=== PATIENT | male | born 1950 | race Caucasian/White ===

== ENCOUNTER 2021-06-13 14:29 | Outpatient (CLI) | payer MEDICARE, SELFPAY ==
[2021-06-13 14:44] LABS: Hematocrit 47.9 % (37.0-46.0); Hemoglobin 16.5 g/dL (12.4-15.3); Mean Corpuscular HGB Conc 34.4 g/dL (32.0-36.0); Mean Corpuscular Volume 92.8 fL (78.0-102.0); Mean Platelet Volume 9.1 fl (8.7-11.0); Platelet Count Result 224 K/mm3 (150-420); Red Blood Count 5.16 M/mm3 (4.70-6.10); Red Cell Distribution Width 11.9 % (11.6-14.4); White Blood Count 9.6 K/mm3 (4.8-10.8)
[2021-06-13 15:41] LABS: Alanine Aminotransferase 52 U/L (16-63); Albumin Level 4.1 g/dL (3.4-5.0); Alkaline Phosphatase 89 U/L (46-116); Anion Gap 14 mmol/L (8-16); Aspartate Amino Transferase 33 U/L (15-37); Bilirubin,Total 1.2 mg/dL (0.00-1.00); Blood Urea Nitrogen 25 mg/dL (7-18); Calcium 8.9 mg/dL (8.5-10.1); Carbon Dioxide 22 mmol/L (21-32); Chloride 106 mmol/L (98-108); Cholesterol 117 mg/dL (0-200); Estimated Glomerular Filt Rate 27; Glucose 123 mg/dL (70-99); HDL Direct 28 mg/dL (40-60); LDL Cholesterol Calculated 36 mg/dL (<130); Osmolality Calculated 299 mOsm/kg (285-295); Potassium 4.5 mmol/L (3.5-5.1); Sodium 142 mmol/L (136-145); Total Protein 7.1 g/dL (6.4-8.2); Triglycerides 266 mg/dL (0-150)
== END 2021-06-13 14:30 | disposition home or self-care (01) ==
LOC: CHSLAB 14:33
PROVIDERS: PCP Family Medicine; Visit Provider Family Medicine
DX: I10 Essential (primary) hypertension (principal)
CPT/HCPCS: 36415; 80053; 80061; 85027

== ENCOUNTER 2021-08-16 13:35 | Outpatient (CLI) | payer MEDICARE, SELFPAY ==
--- NOTE | ~2021-08-16 | US_ITS ---
EXAMINATION: US retroperitoneal comp DATE: 08/16/2021 14:19 INDICATION: Chronic kidney disease stage IV. TECHNIQUE: Multiple ultrasound grayscale images of the kidneys were obtained. COMPARISON: CT abdomen and pelvis 12/29/2017 FINDINGS: The right kidney measures 9.7 x 5.4 x 6.3 cm. The left kidney measures 11.8 x 5.0 x 5.9 cm. The kidne ys demonstrate normal parenchymal echogenicity. There is a 6.9 cm cyst in left kidney. There is focal volume loss of left kidney from prior partial nephrectomy. There is no hydronephrosis. The bladder i s not well distended. IMPRESSION: 1. Partial left nephrectomy. Otherwise normal kidney sizes. No hydronephrosis. Reviewed, dictated and finalized at location A.
[2021-08-17 18:02] LABS: Anion Gap 13 mmol/L (8-16); Blood Urea Nitrogen 19 mg/dL (7-18); Calcium 8.9 mg/dL (8.5-10.1); Carbon Dioxide 22 mmol/L (21-32); Chloride 103 mmol/L (98-108); Estimated Glomerular Filt Rate 54; Glucose 107 mg/dL (70-99); Osmolality Calculated 288 mOsm/kg (285-295); Phosphorus 3.9 mg/dL (2.6-4.7); Potassium 4.1 mmol/L (3.5-5.1); Sodium 138 mmol/L (136-145)
[2021-08-20 05:42] LABS: Complement C3 184 mg/dL (82-185)
[2021-08-21 15:32] LABS: Albumin 4.3 g/dL (3.8-4.8); Alpha 1 Globulin 0.3 g/dL (0.2-0.3); Alpha 2 Globulin 0.9 g/dL (0.5-0.9); Beta 1 Globulin 0.4 g/dL (0.4-0.6); Gamma Globulin 0.6 g/dL (0.8-1.7); Interpretation Consistent with; Protein, Total 6.9 g/dL (6.1-8.1)
[2021-08-23 11:36] LABS: Anti Glomerular Basement Memb <1.0 AI (<1.0)
== END 2021-08-16 13:36 | disposition home or self-care (01) ==
LOC: CHSIMG 13:39
PROVIDERS: PCP Family Medicine; Visit Provider Internal Medicine Nephrology
DX: I12.9 Hypertensive chronic kidney disease with stage 1 through stage 4 chronic kidney disease, or unspecified chronic kidney disease (principal); N18.4 Chronic kidney disease, stage 4 (severe); R80.8 Other proteinuria
CPT/HCPCS: 36415; 76770; 80069; 82570; 83520; 84155; 84156; 84165; 84166; 84300; 86036; 86038; 86160; 86225

== ENCOUNTER 2021-08-18 09:19 | Outpatient (CLI) | payer MEDICARE, SELFPAY ==
[2021-08-18 10:41] LABS: Total Protein Urine Random 13.1 mg/dL (0.0-11.9)
[2021-08-18 10:44] LABS: Creatinine Urine 129.29 mg/dL (40-278); Sodium Urine Random 145 mmol/L (20-110)
[2021-08-22 05:45] LABS: Total Protein/Creatinine Ratio 67 mg/g creat (22-128)
[2021-08-28 12:04] LABS: Creatinine, Random Urine 119
== END 2021-08-18 09:20 | disposition home or self-care (01) ==
LOC: CHSLAB 09:21
PROVIDERS: PCP Family Medicine; Visit Provider Internal Medicine Nephrology
DX: I12.9 Hypertensive chronic kidney disease with stage 1 through stage 4 chronic kidney disease, or unspecified chronic kidney disease (principal); N18.4 Chronic kidney disease, stage 4 (severe); R80.8 Other proteinuria
CPT/HCPCS: 82570; 84156; 84166; 84300

== ENCOUNTER 2021-08-22 09:19 | Emergency (ER) | payer MEDICARE, SELFPAY ==
--- NOTE | ~2021-08-22 | XR_ITS ---
EXAMINATION: XR chest 1V portable DATE: 08/22/2021 10:12 INDICATION: Stroke with left-sided weakness TECHNIQUE: frontal view of the chest was obtained. COMPARISON: None FINDINGS: Calcified nodule in the left midlung zone consistent with old granulomatous disease. Mild linear disc oid atelectasis also in the left midlung zone. No pulmonary edema, pneumothorax or evident pleural ef fusion. Caudal-most tips of the costophrenic angles are however excluded from the [id number] and v cathi small pleural effusions cannot be absolutely excluded. Cardiomediastinal silhouette is within nor mal limits for AP technique. Median sternotomy wires as well as stenting of the tortuous descending t horacic aorta. Dual lead pacemaker seen with leads projecting over the expected locations of the righ t atrium and right ventricle. IMPRESSION: 1. No acute cardiopulmonary disease. Reviewed, dictated and finalized at location B.
--- NOTE | ~2021-08-22 | CT_ITS ---
EXAMINATION: CT brain wo con DATE: 08/22/2021 09:30 INDICATION: Left-sided weakness TECHNIQUE: Computed tomography (CT) of the head was performed without intravenous contrast. The dose- length product was 605.33 mGy-cm. Automated exposure control and iterative reconstruction technique w ere employed. COMPARISON: None FINDINGS: There is a parenchymal hemorrhage of the right hemisphere centered in the right basal gangl ia and temporal lobe measuring 3.4 x 3.5 cm with mild surrounding vasogenic edema. No midline shift. There is mild generalized atrophy. There are scattered mild periventricular and subcortical white mat ter changes, most likely related to small vessel ischemic disease (microangiopathy). There is intracr anial atherosclerosis. Paranasal sinuses and mastoids are pneumatized. No depressed skull fractures. IMPRESSION: 1. Acute parenchymal hemorrhage centered in the right temporal lobe/basal ganglia measuring up to 3.5 cm with mild surrounding vasogenic edema. No midline shift. 2: Chronic age-related findings. Dr. Ramon Osorio discussed with Dr. Loreta Way MD at 08/22/2021 09:35 CDT. Reviewed, dictated and finalized at location A. IMPRESSION: 1. Acute parenchymal hemorrhage centered in the right temporal lobe/basal gangl ia measuring up to 3.5 cm with mild surrounding vasogenic edema. No midline john ft. 2: Chronic age-related findings. Dr. Ramon Osorio discussed with Dr. Loreta Way MD at 08/22/2021 09:35 CDT.
--- NOTE | 2021-08-22 09:25 | ECG_ITS ---
Measurements Intervals [place] Rate: 69 P: -52 [place]: 217 QRS: -55 QRSD: 118 T: -16 QT: 378 QTc: 408 Interpretive Statements ELECTRONIC ATRIAL PACEMAKER INTRAVENTRICULAR CONDUCTION DELAY BORDERLINE R WAVE PROGRESSION, ANTERIOR LEADS INFERIOR INFARCT, AGE INDETERMINATE BASELINE ARTIFACT- I, II, III, AVR, AVL, AVF, V2-V3 ABNORMAL ECG Electronically Signed On 08-22-2021 9:35:50 CDT by David Bhatia D.O.
[2021-08-22 09:32] LABS: Basophils Absolute Auto 0.03 K/mm3 (0.00-0.10); Basophils Percent Auto 0.4 % (0.0-1.0); Eosinophils Absolute Auto 0.32 K/mm3 (0.02-0.50); Eosinophils Percent Auto 4.4 % (1.0-6.0); Hematocrit 44.2 % (37.0-46.0); Hemoglobin 15.1 g/dL (12.4-15.3); Immature Granulocyte Absolute 0.03 K/mm3 (0.00-0.00); Immature Granulocyte Percent A 0.4 % (0.0-0.0); Lymphocytes Absolute Auto 1.47 K/mm3 (1.10-4.50); Mean Corpuscular HGB Conc 34.2 g/dL (32.0-36.0); Mean Corpuscular Hemoglobin 31.7 pg (27.0-31.0); Mean Corpuscular Volume 92.9 fL (78.0-102.0); Mean Platelet Volume 9.4 fl (8.7-11.0); Monocytes Absolute Auto 0.62 K/mm3 (0.10-0.90); Monocytes Percent Auto 8.4 % (2.0-11.0); Neutrophils Absolute Auto 4.9 K/mm3 (1.7-7.2); Neutrophils Percent Auto 66.4 % (50.0-70.0); Platelet Count Result 165 K/mm3 (150-420); Red Blood Count 4.76 M/mm3 (4.70-6.10); Red Cell Distribution Width 11.9 % (11.6-14.4); White Blood Count 7.3 K/mm3 (4.8-10.8)
[2021-08-22 09:40] VITALS: BP 179/101; PULSE 70; RESP 16; TEMP 36.6; O2SAT 94
[2021-08-22 09:44] LABS: Partial Thromboplastin Time 27.8 SEC (23.90-30.70); Prothrombin Time 10.8 Seconds (9.50-12.10)
--- NOTE | 2021-08-22 09:48 | PC.NURSE ---
call to [facility] to check flight status,
[2021-08-22 09:53] LABS: Alanine Aminotransferase 32 U/L (16-63); Albumin Level 3.8 g/dL (3.4-5.0); Alkaline Phosphatase 86 U/L (46-116); Anion Gap 8 mmol/L (8-16); Aspartate Amino Transferase 19 U/L (15-37); Bilirubin,Total 0.9 mg/dL (0.00-1.00); Blood Urea Nitrogen 13 mg/dL (7-18); Calcium 8.8 mg/dL (8.5-10.1); Carbon Dioxide 27 mmol/L (21-32); Chloride 103 mmol/L (98-108); Creatine Kinase 138 U/L (39-308); Estimated Glomerular Filt Rate 58; Glucose 127 mg/dL (70-99); Osmolality Calculated 288 mOsm/kg (285-295); Potassium 3.8 mmol/L (3.5-5.1); Sodium 138 mmol/L (136-145); Troponin I 18.9 ng/L (0.00-60.4)
--- NOTE | 2021-08-22 09:55 | PC.NURSE ---
[facility] can fly at this time will have to recheck weather upon bed assignment
[2021-08-22] MEDS: levETIRAcetam 1000MG/NACL100ML 1,000 MG/100 ML BAG 400 MG IVPB (09:57)
[2021-08-22 09:59] LABS: Base Excess ABG -0.5 mmol/L (0-2); Carboxyhemoglobin 0.7 % (0-1.5); Device ROOM AIR; HCO3 ABG 23.1 mmol/L (23-29); Methemoglobin ABG 0.2 % (0-1.5); Modified Allen's Test Pass; Oxygen Content ABG 20.2 %vol (16.0-22.0); Oxygen Saturation ABG 95.3 % (95-97); Oxyhemoglobin 94.4 % (94-100); PO2 ABG 75.4 mmHg (75-85); Reduced Hemoglobin 4.7 % (0-1.5); Site Drawn RIGHT RADIAL; Total Hemoglobin 15.2 g/dL (12.0-18.0); pH ABG 7.44 (7.35-7.45)
[2021-08-22] MEDS: SODIUM CHLORIDE 0.9% IV 1,000 ML 150 ML IV CONT (09:59)
--- NOTE | 2021-08-22 09:59 | PC.NURSE ---
call from [facility], enroute to [facility].
[2021-08-22 10:01] LABS: Ethanol < 3 mg/dL (0-6)
--- NOTE | 2021-08-22 10:01 | ED.NEUROSD ---
HPI - Neuro Symptoms/Deficit General Chief Complaint: Suspected CVA Stated Complaint: Amb Time Seen by Provider: 08/22/21 09:20 Source: patient, EMS and RN notes reviewed Mode of arrival: EMS Limitations: no limitations History of Present Illness Onset (ago): hour(s) (16) Time: 10:03 Last Observed Normal: 17:00 Timing confirmed by: other (patient) Location: left arm and left leg History of same: No Severity: severe Quality: weak Relieving factors: none Exacerbating factors: none Context: sudden onset On Anticoagulants: Yes Associated symptoms: weakness Related Data Home Medications Medication Instructions Recorded Confirmed losartan 25 mg tablet 50 mg PO DAILY 07/10/21 08/22/21 Allergies Allergy/AdvReac Type Severity Reaction Status Date / Time Tetanus Vaccines and Toxoid Allergy Mild UNKNOWN Verified 08/22/21 09:46 Contrast Media Allergy Intermediate RASH Uncoded 07/26/21 09:45 Review of Systems Review of Systems: All systems reviewed & are unremarkable except as noted in HPI and below PMFSH Past Medical History Medical History 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 40 pk hr history Alcohol intake: never Alcohol use details: admits to previously binge drinking on weekends. Exam Const: General: cooperative and no acute distress Nutritional Appearance: obese Orientation/consciousness: patient oriented x3 Limitations: no limitations HENMT: Head: normal to inspection, normocephalic and atraumatic Ears: hearing grossly normal bilaterally, external ears normal, TM's normal bilaterally and EAC's normal General nose exam: Normal external nose present and Normal nares present Face and sinus: normal facial exam and sinuses nontender Mouth: Yes moist mucous membranes Teeth and gingiva: dentition normal and gingiva normal Throat: posterior oropharynx normal and tonsils normal Eyes: General: appearance normal, both eyes and all related structures Visual Neville: normal visual neville by confrontation Periorbital: periorbital findings normal Eyelids: eyelids normal Conjunctivae: conjunctivae normal Sclera: sclerae normal Cornea: corneas normal Pupils: Equal, round and reactive pupils present and Pupils normal by confrontation EOM: EOMs intact bilaterally Direct Ophthalmoscopy: normal light reflex Neck: Neck: normal visual inspection, full ROM, no lymphadenopathy, no meningeal signs and trachea midline Chest: Chest palpation & inspection: normal inspection of the chest and normal palpation of entire chest wall Resp: Effort & Inspection: normal respiratory effort and able to speak in complete sentences Auscultation: clear to auscultation bilaterally Cardio: Jugular venous distension: no JVD Palpation: normal PMI Rate: regular rate Rhythm: regular rhythm Peripheral pulses: Peripheral pulses 2+ throughout GI: Inspection: normal to inspection GI Palp: No abdominal tenderness Auscultation: normal bowel sounds : General: Yes bladder normal to inspection Back/Spine/Pelvis: Back: no CVA tenderness Thoracic/Lumbar Spine: thoracic and lumbar spine normal to inspection Skin: General skin exam: normal color and no rashes or lesions noted Neuro: General: patient oriented x3, no meningeal signs, CN's II-XI intact bilaterally and other (grade 4/5 weakness left upper and lower limbs, mild drift) Cranial nerves: Yes CN's II-XII intact bilaterally, Yes Facial sensation intact/muscles of mastication intact, Yes Intact sense of smell present, Yes Equal, round and reactive pupils present, Yes Normal accommodation reflex present, Yes Bilaterally intact EOM present, Yes Nystagmus not present, Yes Normal facial strength present, Yes facial symmetry, Yes Midline
[2021-08-22 10:12] VITALS: PULSE 70
[2021-08-22 10:12] LABS: SARS-CoV-2 Ag Negative (Negative)
[2021-08-22] MEDS: METOPROLOL TARTRATE INJ 5 MG/5 ML VIAL 2.5 MG IV PUSH (10:12)
--- NOTE | 2021-08-22 10:25 | PC.NURSE ---
1013 arch here, report to garo,
[2021-08-22 10:35] VITALS: BP 166/102; PULSE 71; RESP 16; TEMP 36.6; O2SAT 94
--- NOTE | 2021-08-22 10:36 | PC.NURSE ---
at 1015 covid test results relayed to [facility] claims coordinator.
--- NOTE | 2021-08-22 10:36 | PC.NURSE ---
at 1020 arch arrives for transport. awating guido to provide bed assignment.
== END 2021-08-22 10:40 | disposition short-term general hospital (02) ==
PROVIDERS: Emergency Provider Emergency Medicine; PCP Family Medicine
DX: I62.9 Nontraumatic intracranial hemorrhage, unspecified (principal); I10 Essential (primary) hypertension; Z87.891 Personal history of nicotine dependence; Z20.822 Contact with and (suspected) exposure to COVID-19; Z79.899 Other long term (current) drug therapy
CPT/HCPCS: 36415; 36600; 70450; 71045; 80053; 80307; 82375; 82550; 82553; 82805; 83050; 84484; 85025; 85610; 85730; 87426; 93005; 96365; 96375; 99291; C9803; J1953; J7030

== ENCOUNTER 2021-11-19 08:25 | Outpatient (CLI) | payer MEDICARE, SELFPAY ==
--- NOTE | ~2021-11-19 | CT_ITS ---
EXAMINATION: CT brain wo con DATE: 11/19/2021 08:40 INDICATION: Cerebrovascular accident. Cerebral hemorrhage. Left-sided numbness. TECHNIQUE: Computed tomography (CT) of the head was performed without intravenous contrast. The mA wa s adjusted according to patient size. Iterative reconstruction technique was employed. The dose-lengt h product was 605.33 mGy-cm. COMPARISON: Head CT 08/22/2021 FINDINGS: There are scattered areas of low attenuation in the cerebral white matter. There is chronic encephalomalacia involving right temporal lobe and posterior right insula where the hematoma was see n on the prior CT. There is chronic encephalomalacia in anteroinferior right temporal lobe without ch kole from the prior CT. There is no intracranial hemorrhage, acute infarction, or abnormal intracrani al mass lesion. The ventricles are normal in size. The orbits are normal. There is mild mucosal thick ening in the ethmoid sinuses. The mastoid air cells are normal. IMPRESSION: 1. Chronic encephalomalacia involving right temporal lobe and posterior right insula. 2. Stable moderate nonspecific cerebral white matter disease, which likely represents chronic small v essel ischemic disease. Reviewed, dictated and finalized at location A. IMPRESSION: 1. Chronic encephalomalacia involving right temporal lobe and posterior right i nsula. 2. Stable moderate nonspecific cerebral white matter disease, which likely repr esents chronic small vessel ischemic disease.
== END 2021-11-19 08:26 | disposition home or self-care (01) ==
LOC: CHSIMG 08:26
PROVIDERS: PCP Family Medicine; Visit Provider Family Medicine
DX: I61.9 Nontraumatic intracerebral hemorrhage, unspecified (principal)
CPT/HCPCS: 70450

== ENCOUNTER 2022-06-27 12:14 | Outpatient (CLI) | payer MEDICARE, SELFPAY ==
[2022-06-27 12:33] LABS: Basophils Absolute Auto 0.03 K/mm3 (0.00-0.10); Basophils Percent Auto 0.4 % (0.0-1.0); Eosinophils Absolute Auto 0.21 K/mm3 (0.02-0.50); Eosinophils Percent Auto 2.7 % (1.0-6.0); Hematocrit 43.9 % (37.0-46.0); Hemoglobin 15.2 g/dL (12.4-15.3); Immature Granulocyte Absolute 0.04 K/mm3 (0.00-0.00); Immature Granulocyte Percent A 0.5 % (0.0-0.0); Lymphocytes Absolute Auto 1.78 K/mm3 (1.10-4.50); Lymphocytes Percent Auto 22.7 % (18.0-42.0); Mean Corpuscular HGB Conc 34.6 g/dL (32.0-36.0); Mean Corpuscular Hemoglobin 32.3 pg (27.0-31.0); Mean Corpuscular Volume 93.4 fL (78.0-102.0); Mean Platelet Volume 9.2 fl (8.7-11.0); Monocytes Absolute Auto 0.67 K/mm3 (0.10-0.90); Monocytes Percent Auto 8.6 % (2.0-11.0); Neutrophils Absolute Auto 5.1 K/mm3 (1.7-7.2); Neutrophils Percent Auto 65.1 % (50.0-70.0); Platelet Count Result 192 K/mm3 (150-420); White Blood Count 7.8 K/mm3 (4.8-10.8)
[2022-06-27 12:49] LABS: Prothrombin Time 10.9 Seconds (9.50-12.10)
[2022-06-27 13:19] LABS: Anion Gap 13 mmol/L (8-16); Blood Urea Nitrogen 18 mg/dL (7-18); Calcium 9.1 mg/dL (8.5-10.1); Carbon Dioxide 25 mmol/L (21-32); Chloride 107 mmol/L (98-108); Estimated Glomerular Filt Rate 58; Glucose 94 mg/dL (70-99); Osmolality Calculated 301 mOsm/kg (285-295); Potassium 4.8 mmol/L (3.5-5.1); Sodium 145 mmol/L (136-145)
== END 2022-06-27 12:15 | disposition home or self-care (01) ==
LOC: CHSLAB 12:17
PROVIDERS: PCP Family Medicine
DX: I48.91 Unspecified atrial fibrillation (principal)
CPT/HCPCS: 36415; 80048; 85025; 85610

== ENCOUNTER 2022-09-18 08:40 | Outpatient (CLI) | payer MEDICARE, SELFPAY ==
[2022-09-18 09:53] LABS: Cholesterol 125 mg/dL (0-200); HDL Direct 27 mg/dL (40-60); LDL Cholesterol Calculated 14 mg/dL (<130); Triglycerides 419 mg/dL (0-150)
[2022-09-18 09:54] LABS: LDL Cholesterol Direct 45 mg/dL (0-130)
== END 2022-09-18 08:41 | disposition home or self-care (01) ==
LOC: CHSLAB 08:44
PROVIDERS: PCP Family Medicine
DX: E78.2 Mixed hyperlipidemia (principal)
CPT/HCPCS: 36415; 80061; 83721

== ENCOUNTER 2022-10-21 10:05 | Outpatient (CLI) | payer MEDICARE, SELFPAY ==
[2022-10-21 10:31] LABS: Basophils Absolute Auto 0.02 K/mm3 (0.00-0.10); Basophils Percent Auto 0.3 % (0.0-1.0); Eosinophils Absolute Auto 0.27 K/mm3 (0.02-0.50); Eosinophils Percent Auto 3.8 % (1.0-6.0); Hematocrit 44.6 % (37.0-46.0); Hemoglobin 15.7 g/dL (12.4-15.3); Immature Granulocyte Absolute 0.03 K/mm3 (0.00-0.00); Immature Granulocyte Percent A 0.4 % (0.0-0.0); Lymphocytes Absolute Auto 1.56 K/mm3 (1.10-4.50); Lymphocytes Percent Auto 21.7 % (18.0-42.0); Mean Corpuscular HGB Conc 35.2 g/dL (32.0-36.0); Mean Corpuscular Hemoglobin 32.8 pg (27.0-31.0); Mean Corpuscular Volume 93.3 fL (78.0-102.0); Mean Platelet Volume 9.2 fl (8.7-11.0); Monocytes Absolute Auto 0.57 K/mm3 (0.10-0.90); Monocytes Percent Auto 7.9 % (2.0-11.0); Neutrophils Absolute Auto 4.7 K/mm3 (1.7-7.2); Neutrophils Percent Auto 65.9 % (50.0-70.0); Platelet Count Result 179 K/mm3 (150-420); Red Blood Count 4.78 M/mm3 (4.70-6.10); Red Cell Distribution Width 11.9 % (11.6-14.4); White Blood Count 7.2 K/mm3 (4.8-10.8)
[2022-10-21 11:06] LABS: Anion Gap 14 mmol/L (8-16); Blood Urea Nitrogen 24 mg/dL (7-18); Calcium 9.4 mg/dL (8.5-10.1); Carbon Dioxide 23 mmol/L (21-32); Chloride 108 mmol/L (98-108); Cholesterol 108 mg/dL (0-200); Estimated Glomerular Filt Rate 44; Glucose 122 mg/dL (70-99); HDL Direct 27 mg/dL (40-60); LDL Cholesterol Calculated 9 mg/dL (<130); NT Pro B Type Natriuretic Pept 2109 pg/mL (0-125); Osmolality Calculated 305 mOsm/kg (285-295); Potassium 4.3 mmol/L (3.5-5.1); Sodium 145 mmol/L (136-145); Triglycerides 358 mg/dL (0-150)
== END 2022-10-21 10:06 | disposition home or self-care (01) ==
PROVIDERS: PCP Family Medicine
DX: E78.2 Mixed hyperlipidemia (principal); I50.33 Acute on chronic diastolic (congestive) heart failure; R06.09 Other forms of dyspnea
CPT/HCPCS: 36415; 80048; 80061; 83880; 85025

== ENCOUNTER 2023-01-11 08:26 | Outpatient (CLI) | payer MEDICARE, SELFPAY ==
[2023-01-11 08:53] LABS: Hemoglobin A1C 5.7 % (<5.7)
[2023-01-11 08:59] LABS: Cholesterol 100 mg/dL (0-200); HDL Direct 30 mg/dL (40-60); LDL Cholesterol Calculated 32 mg/dL (<130); Triglycerides 192 mg/dL (0-150)
== END 2023-01-11 08:27 | disposition home or self-care (01) ==
LOC: CHSLAB 08:29
PROVIDERS: PCP Physician Assistant Medical
DX: E78.5 Hyperlipidemia, unspecified (principal); R73.09 Other abnormal glucose
CPT/HCPCS: 36415; 80061; 83036

== ENCOUNTER 2023-06-03 10:59 | Outpatient (CLI) | payer MEDICARE, SELFPAY ==
[2023-06-03 12:43] LABS: Alanine Aminotransferase 32 U/L (16-63); Albumin Level 4.4 g/dL (3.4-5.0); Alkaline Phosphatase 70 U/L (46-116); Anion Gap 17 mmol/L (8-16); Aspartate Amino Transferase 19 U/L (15-37); Blood Urea Nitrogen 24 mg/dL (7-18); Calcium 9.5 mg/dL (8.5-10.1); Carbon Dioxide 23 mmol/L (21-32); Chloride 102 mmol/L (98-108); Estimated Glomerular Filt Rate 43; Glucose 139 mg/dL (70-99); NT Pro B Type Natriuretic Pept 1430 pg/mL (0-450); Osmolality Calculated 300 mOsm/kg (285-295); Sodium 142 mmol/L (136-145); Total Protein 7.3 g/dL (6.4-8.2)
== END 2023-06-03 11:00 | disposition home or self-care (01) ==
PROVIDERS: PCP Physician Assistant Medical
DX: I50.32 Chronic diastolic (congestive) heart failure (principal); I25.5 Ischemic cardiomyopathy
CPT/HCPCS: 36415; 80053; 83880

== ENCOUNTER 2023-07-30 11:05 | Outpatient (CLI) | payer MEDICARE, SELFPAY ==
[2023-07-30 11:45] LABS: Anion Gap 11 mmol/L (4-12); Blood Urea Nitrogen 27 mg/dL (7-18); Calcium 9.3 mg/dL (8.5-10.1); Carbon Dioxide 26 mmol/L (21-32); Chloride 103 mmol/L (98-108); Estimated Glomerular Filt Rate 43; Glucose 102 mg/dL (70-99); NT Pro B Type Natriuretic Pept 1656 pg/mL (0-450); Osmolality Calculated 295 mOsm/kg (285-295); Potassium 4.4 mmol/L (3.5-5.1); Sodium 140 mmol/L (136-145)
== END 2023-07-30 11:06 | disposition home or self-care (01) ==
LOC: CHSLAB 11:09
PROVIDERS: PCP Physician Assistant Medical
DX: I50.22 Chronic systolic (congestive) heart failure (principal)
CPT/HCPCS: 36415; 80048; 83880

== ENCOUNTER 2023-09-18 10:04 | Outpatient (CLI) | payer MEDICARE, SELFPAY ==
[2023-09-18 10:39] LABS: Cholesterol 124 mg/dL (0-200); HDL Direct 30 mg/dL (40-60); LDL Cholesterol Calculated 24 mg/dL (<130); Triglycerides 348 mg/dL (0-150)
== END 2023-09-18 10:05 | disposition home or self-care (01) ==
LOC: CHSLAB 10:06
PROVIDERS: PCP Physician Assistant Medical; Visit Provider Internal Medicine Interventional Cardiology
DX: E78.2 Mixed hyperlipidemia (principal)
CPT/HCPCS: 36415; 80061

== ENCOUNTER 2023-12-14 12:56 | Emergency (ER) | payer MEDICARE, SELFPAY ==
--- NOTE | ~2023-12-14 | XR_ITS ---
XR foot LT min 3V Ordering provider: Oliver Sanchez MD History: . medial Lt. foot pain swelling, NKI . Comparison: None. FINDINGS: BONES: No acute fracture or dislocation. Ossification of the insertion of the tendo Achilles. JOINT SPACES: Normal. No tarsal coalition. SOFT TISSUES: Normal. IMPRESSION: No acute osseous abnormality left foot. Reviewed, dictated and finalized at location A.
[2023-12-14 12:58] VITALS: BP 119/90; PULSE 74; RESP 20; TEMP 36.4; O2SAT 97
--- NOTE | 2023-12-14 13:39 | ED.GENADULT ---
HPI - General Adult General Chief complaint: Extremity Problem,Nontraumatic Stated complaint: left foot pain Time Seen by Provider: 12/14/23 13:38 Source: patient Mode of arrival: ambulatory Limitations: no limitations History of Present Illness HPI narrative: left foot pain and swelling for the last 2 weeks. Actually said his foot hurt in the same spot which is the mid foot about 4 weeks ago at her for 0 week and then went away and then came back 2 weeks ago. Rates as a 5-10 is worse in the morning when he 1st stands up to his mid foot. Denies any trauma. He has a history arthritis in his knees he has also had some pain in his right great toe so he thought he had some gout for this she took Tart supplement which is post helping gout. But it did not help. He is not supposed to take any nonsteroidal anti-inflammatories because he has heart disease but he took some Naprosyn a day or 2 ago. He has took some Tylenol last night. He has he has the numbness on his left side for a stroke he has wondered if he had broke anything and just can not feel it. But he has not had any trauma that he knows of. denies any other complaints Stroke coronary artery disease heart disease aortic disease congestive heart failure pacemaker Related Data Home Medications Medication Instructions Recorded Confirmed aspirin 81 mg tablet,delayed 81 mg PO DAILY 08/31/21 06/06/23 release diphenhydramine 25 1 tablet PO QHS PRN Pain 11/04/22 06/06/23 mg-acetaminophen 500 mg tablet (Tylenol PM Extra Strength) icosapent ethyl 1 gram capsule 2 g PO BID 11/04/22 06/06/23 (Vascepa) metoprolol succinate 25 mg 25 mg PO DAILY 04/10/23 06/06/23 tablet,extended release 24 hr furosemide 40 mg tablet 40 mg PO QAM 06/08/23 06/06/23 Allergies Allergy/AdvReac Type Severity Reaction Status Date / Time Tetanus Vaccines and Toxoid Allergy Mild UNKNOWN Verified 12/14/23 13:16 Contrast Media Allergy Intermediate RASH Uncoded 12/14/23 13:16 Review of Systems Review of Systems: All systems reviewed & are unremarkable except as noted in HPI and below PMFSH Past Medical History Medical History Afib Cardioverted to normal sinus rhythm 10/2022 Allergic rhinitis 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 Substance use: never Substance use type: does not use Lack of Transportation: No Lack of Food: Never True Current Housing: I Have Housing Concerned About Future Housing: No Difficulty Paying Gas/Electric Bills: No Difficulty Paying for Meds: No Currently Unemployed: No Difficulty w/ Childcare or Family Care: No Living arrangements: with family Occupation/Education: retired Gender identity (if verbalized by the patient): Male Sexual Orientation (if Verbalized by the Patient): Straight or Heterosexual Comments aortic surgery Exam Narrative: White male patient with no apparent distress.? Head normocephalic, atraumatic.? Eyes conjunctiva pink sclera nonicteric.? Extraocular movements are intact.? Ears externally normal.? Oropharynx is clear with moist mucous membranes without exudates.? Neck is supple nontender no lymphadenopathy.? Back is nontender.? Lungs are clear.? Heart is regular rate and rhythm without murmurs gallops or rubs.? Extremities: Left foot mildly swollen mild tenderness the mid foot. DP and PT pulses are +2 equal bilaterally. Calf is nontender. Foot and ankle have full range of motion. no cyanosis clubbing or
[2023-12-14 13:58] VITALS: BP 113/85; PULSE 70; RESP 18; TEMP 36.4; O2SAT 97
[2023-12-14] MEDS: HYDROcodone/acetaminophen (*CRX) 5-325 MG TABLET 1 TAB PO (14:06)
[2023-12-14 14:30] LABS: Hematocrit 47.7 % (37.0-46.0); Hemoglobin 16.7 g/dL (12.4-15.3); Mean Corpuscular Hemoglobin 32.5 pg (27.0-31.0); Mean Corpuscular Volume 92.8 fL (78.0-102.0); Mean Platelet Volume 9.3 fl (8.7-11.0); Platelet Count Result 160 K/mm3 (150-420); Red Blood Count 5.14 M/mm3 (4.70-6.10); Red Cell Distribution Width 11.9 % (11.6-14.4); White Blood Count 8.6 K/mm3 (4.8-10.8)
[2023-12-14 14:46] LABS: Alanine Aminotransferase 25 U/L (16-63); Albumin Level 3.8 g/dL (3.4-5.0); Alkaline Phosphatase 96 U/L (46-116); Anion Gap 11 mmol/L (4-12); Aspartate Amino Transferase 16 U/L (15-37); Bilirubin,Total 1.2 mg/dL (0.00-1.00); Blood Urea Nitrogen 25 mg/dL (7-18); Calcium 9.5 mg/dL (8.5-10.1); Carbon Dioxide 28 mmol/L (21-32); Chloride 102 mmol/L (98-108); Estimated CRCL calculation 43 ml/min; Estimated Glomerular Filt Rate 39; Glucose 139 mg/dL (70-99); Osmolality Calculated 298 mOsm/kg (285-295); Potassium 3.7 mmol/L (3.5-5.1); Sodium 141 mmol/L (136-145); Total Protein 7.3 g/dL (6.4-8.2); Uric Acid 9.6 mg/dL (3.5-7.2)
[2023-12-14 16:01] VITALS: BP 119/93; PULSE 70; RESP 22; TEMP 36.6; O2SAT 97
[2023-12-14] MEDS: COLCHICINE 0.6 MG TABLET 1.2 MG PO (16:04)
[2023-12-14] MEDS: predniSONE 20 MG TABLET 40 MG PO (16:05)
[2023-12-14 16:13] VITALS: BP 119/93; PULSE 70; RESP 22; TEMP 36.6; O2SAT 97
== END 2023-12-14 16:13 | disposition home or self-care (01) ==
PROVIDERS: Emergency Provider Emergency Medicine
DX: M10.9 Gout, unspecified (principal); I10 Essential (primary) hypertension; Z87.891 Personal history of nicotine dependence
CPT/HCPCS: 36415; 73630; 80053; 84550; 85027; 99283; A9270; J7512

== ENCOUNTER 2024-02-11 07:51 | Outpatient (CLI) | payer MEDICARE, SELFPAY ==
[2024-02-11 08:35] LABS: Hematocrit 49.6 % (37.0-46.0); Hemoglobin 17.1 g/dL (12.4-15.3); Mean Corpuscular HGB Conc 34.5 g/dL (32-36); Mean Corpuscular Hemoglobin 31.3 pg (27.0-31.0); Mean Corpuscular Volume 90.8 fL (78.0-102.0); Platelet Count Result 180 K/mm3 (150-420); Red Blood Count 5.46 M/mm3 (4.70-6.10); Red Cell Distribution Width 12.6 % (11.6-14.4); White Blood Count 6.4 K/mm3 (4.8-10.8)
[2024-02-11 09:05] LABS: Albumin Level 4.1 g/dL (3.4-5.0); Anion Gap 15 mmol/L (4-12); Blood Urea Nitrogen 26 mg/dL (7-18); Calcium 9.4 mg/dL (8.5-10.1); Carbon Dioxide 22 mmol/L (21-32); Chloride 103 mmol/L (98-108); Creatine Kinase 46 U/L (39-308); Estimated Glomerular Filt Rate 47; Glucose 116 mg/dL (70-99); Osmolality Calculated 295 mOsm/kg (285-295); Phosphorus 4.3 mg/dL (2.6-4.7); Potassium 4.2 mmol/L (3.5-5.1); Sodium 140 mmol/L (136-145); Uric Acid 7.5 mg/dL (3.5-7.2)
[2024-02-11 09:38] LABS: Erythrocyte Sedimentation Rate 8 mm/hr (0-20)
[2024-02-11 09:50] LABS: Add Urine Microscopic? NO; Appearance Urine Clear (Clear); Bilirubin Urine Negative (Negative); Blood Urine Negative (Negative); Color Urine Light Yellow (Yellow); Glucose Urine UA Negative (Negative); Ketones Urine Negative (Negative); Leukocyte Esterase Ur Negative (Negative); Nitrate Urine Negative (Negative); Protein Urine Negative (Negative); Urobilinogen Urine 0.2 mg/dL (0.2-1.0); pH Urine 5.5 (5.0-8.0)
[2024-02-11 09:56] LABS: Creatinine Urine 84.94 mg/dL (40-278); Total Protein Urine Random 12.2 mg/dL (0.0-11.9); Ur Ttl Prot Creatinine Ratio 0.14 mg/mg (0-0.20)
[2024-02-12 11:43] LABS: Complement C3 163 mg/dL (82-185)
[2024-02-12 14:14] LABS: Parathyroid Intact 77 pg/mL (16-77)
[2024-02-12 15:14] LABS: Kappa\\Lambda Light Chains 1.53 (0.26-1.65); Lambda Light Chain 14.2 mg/L (5.7-26.3)
[2024-02-13 12:54] LABS: Complement Total CH50 50 U/mL (31-60)
[2024-02-15 22:34] LABS: Immunofixation, Serum Normal pattern.
== END 2024-02-11 07:52 | disposition home or self-care (01) ==
LOC: CHSLAB 07:52
PROVIDERS: PCP Family Medicine; Visit Provider Internal Medicine Nephrology
DX: N18.32 Chronic kidney disease, stage 3b (principal); I10 Essential (primary) hypertension; M10.9 Gout, unspecified
CPT/HCPCS: 36415; 80069; 81003; 82550; 82570; 83883; 83970; 84156; 84550; 85027; 85652; 86038; 86039; 86160; 86162; 86334

== ENCOUNTER 2024-02-17 08:25 | Outpatient (CLI) | payer MEDICARE, SELFPAY ==
[2024-02-17 08:51] LABS: Total Volume 24 Hour Urine 1750 ml; Urea Nitrogen 24 Hour Urine 11.1 g/Day (7-20)
== END 2024-02-17 08:26 | disposition home or self-care (01) ==
LOC: CHSLAB 08:26
PROVIDERS: PCP Family Medicine; Visit Provider Internal Medicine Nephrology
DX: N18.32 Chronic kidney disease, stage 3b (principal)
CPT/HCPCS: 81050; 84540

== ENCOUNTER 2024-05-14 12:35 | Outpatient (CLI) | payer MEDICARE, SELFPAY ==
--- NOTE | ~2024-05-14 | US_ITS ---
US renal BI 05/14/2024 13:13 Procedure: Realtime transabdominal ultrasound of the kidneys and bladder. Indication: Chronic kidney disease Comparison: 08/16/2021 Findings: Renal echotexture is normal bilaterally without hydronephrosis, contour deforming mass or r enal calculus. There is a left renal cyst measuring 7.5 cm. The right kidney measures 10.2 cm and lef t kidney measures 11.6 cm. Bladder within normal limits. Impression: 1: Left renal cyst measuring 7.5 cm. Reviewed, dictated and finalized at location B. NT SUPPORT PROFESSIONAL Impression: 1: Left renal cyst measuring 7.5 cm.
--- OUTSIDE RECORDS SUMMARY | 2024-05-14 12:38 | XMS_ITS | Clinical Summary ---
Author Organization [facility] Address [address] [place] [phone] Phone Care Team Providers Care Chute Feeder Name Role Phone Mikael Bower DO Primary Care Provider [phone] Allergies Active Allergy Reactions Criticality Noted Date Comments Lisinopril Cough 04/12/2019 Statins Joint Pain 04/12/2019 Medications Medication Sig Dispensed Refills Start Date End Date Status ALPRAZolam (XANAX) 0.5 MG tablet Take 0.5 mg by mouth 2 (two) times a day if needed 06/21/2021 Active aspirin (ST ONEL) 81 MG EC tablet Take 81 mg by mouth daily Active buPROPion SR (WELLBUTRIN SR) 150 MG 12 hr tablet 06/13/2021 Active carvedilol (COREG) 25 MG tablet 06/15/2021 Active ezetimibe (ZETIA) 10 MG tablet 06/15/2021 Active losartan (COZAAR) 25 MG tablet 06/15/2021 Active omeprazole (PriLOSEC) [address] capsule 06/15/2021 Active rosuvastatin (CRESTOR) 5 MG tablet 06/15/2021 Active tamsulosin (FLOMAX) 0.4 MG 24 hr capsule 07/05/2021 Acti ve Active Problems Problem Noted Date Diagnosed Date Diverticulitis 07/18/2021 Hypertension 07/18/2021 Overview (07/18/2021): no longer on meds Obstructive sleep apnea syndrome 07/18/2021 Tobacco user 07/18/2021 Cardiac defibrillator in situ 09/26/2020 Overview (07/18/2021): [employer] DDD Fort[employer]ura ICD implanted on 04/23/19 for ICM/Afib. 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 no chemo/rads Immunizations Name Administration Dates Next Due Influenza, Injectable, Quadrivalent, Preservativ e Free 04/10/2019 Sars-cov-2, Unspecified 07/18/2020 Family History Medical History Relation Comments Heart disease Mother Hypertension Mother Kidney disease Neg Hx Nephrolithiasis Neg Hx Relation Status Comments Mother Social History Tobacco Use Types Packs/Day Years Used Date Smoking Tobacco: Former Cigarettes 1 40 0 05/1980 - 05/2020 Smokeless Tobacco: Never Alcohol Use Standard Drinks/Week Comments Never 0 (1 standard drink = 0.6 oz pur e alcohol) Sex and Gender Information Value Date Recorded Sex Assigned at Not on file Gender Identity Not on file Sexual Orientation Not on file Last Filed Vital Signs Vital Sign Reading Time Taken Comments Blood Pressure 130/74 07/18/2021 10:09 AM CDT Pulse - - Temperature 37 C (98.6 F) 07/18/2021 10:09 AM CDT Respiratory Rate 18 07/18/2021 10:09 AM CDT Oxygen Saturation - - Inhaled Oxygen Concentration - - Weight 118 kg (261 lb) 07/18/2021 10:09 AM CDT Height 182.9 cm (6') 07/18/2021 10:09 AM CDT Body Mass Index 35.4 07/18/2021 10:09 AM CDT Plan of Treatment Health Maintenance Due Date Last Done Comments Pneumococcal PPSV23/PCV13 65 + Years / Low and Medium Risk (1 of 4 - PCV) 2013 Influenza Vaccine (#1) 2023 04/10/2019 Care Teams Chute Feeder Relationship Specialty Start Date End Date Mikael Bower DO PCP - General Family Medicine 06/14/21
--- OUTSIDE RECORDS SUMMARY | 2024-05-14 12:38 | XMS_ITS | Referral Summary ---
Author Organization [facility] Address [address] [place] [address] Care Team Providers Care Manufacturing Plant Manager Name Role Phone Kiya Tucker Primary Care Provider [phone] Encounters Date Type Department Care Team Description 05/13/2024 Orders Only [facility] Trans[facility] Heart [address] [facility] [address] [id number] [place] [id number] Josy Hutton, RN 05/13/2024 Telephone [facility] [address] [place] [address] [place] [address]-[address] [place] [phone] Josy Hutton, RN 05/13/2024 Orders Only [facility] [address] [place] [address] [place] [id number] Josy Hutton, RN 05/12/2024 Telephone [facility] Cardiology [address] [facility] 8th [place] [address] [place] [phone] Glory Dailey NP 04/23/2024 Orders Only Cardiovascular and Thoracic Surgery [address] [facility] [address] [place] [address] Amber Gutierrez NP S/P aortic valve replacement with bioprosthetic valve (Primary Dx); S/P insertion of endovascular thoracic aortic stent graft 02/23/2024 12:30 PM BUNCHER MACHINE Ancillary Procedure [facility] [address] [facility] [address], [place] [address] ICD (implantable cardioverter-defibrill ator), dual, in situ (Primary Dx); Ischemic cardiomyopathy from Last 3 Months Allergies Active Allergy Reactions Criticality Noted Date Comments Lisinopril Cough Low 05/20/2019 Medications aspirin 81 mg enteric coated tablet Take 1 tablet (81 mg total) by mouth nightly Active diphenhydrAMIN E (BENADRYL) 25 mg capsule Take 1 tablet/capsu le (25 mg total) by mouth daily Active diphenhydrAMIN E-acetaminophe n (Tylenol PM Extra Strength) 25-500 mg tablet Take 1 tablet by mouth nightly Active rosuvastatin (CRESTOR) 5 mg tablet Take 1 tablet (5 mg total) by mouth daily 30 tablet 4 025 Active metoprolol XL (TOPROL-XL) 25 mg extended release tablet Take 1 tablet (25 mg total) by mouth daily 30 tablet 4 025 Active furosemide (LASIX) 40 mg tablet Take 1 tablet (40 mg total) by mouth daily 30 tablet 4 025 Active ezetimibe (ZETIA) 10 mg tablet Take 1 tablet (10 mg total) by mouth nightly 90 tablet 3 4 Active FLUoxetine (PROzac) 20 mg capsule Take 1 capsule (20 mg total) by mouth daily 4 Active icosapent ethyL (VASCEPA) 1 gram capsule TAKE 2 CAPSULES BY MOUTH 2 TIMES A DAY. 120 capsule 11 4 Active allopurinoL (ZYLOPRIM) 100 mg tablet Take 0.5 tablets (50 mg total) by mouth daily 4 Active valsartan (Diovan) 40 mg tablet Take 1 tablet (40 mg total) by mouth daily 30 tablet 11 5 026 Active sacubitriL-david sartan (ENTRESTO) 24-26 mg tabletIndicati ons:chronic heart failure Take 0.5 tablets by mouth 2 (two) times a day 30 tablet 11 4 025 Discontinued Active Problems Problem Noted Date Diagnosed Date Chronic combined systolic an d diastolic heart failure ([facility]/HCC) 08/23/2023 Assessment & Plan (11/08/2023 6:32 PM CDT): Mr. Maher endorses NYHA Class II heart failure symptoms in the office today. He is euvolemic on exam. He is tolerating current medications without dizziness or lightheadedness. I have made no changes in his regimen today and would like him to return in 6 months. He will be referred to cardiac rehab. Assessment & Plan (08/23/2023 3:10 PM CDT): Mr. Maher returns for follow up. He endorses NYHA Class III heart failure symptoms in the office today. He is euvolemic on exam. He is tolerating ARNI and beta jeannette. I have asked him to start Jardiance 10 mg once daily. He will need follow up labs. I have asked him to continue Entresto and metoprolol and return in 3 months for follow up. Cardiac LV ejection fraction 30-35% 06/25/2023 Paroxysmal atrial fibrillation ([facility]) 024 S/P aortic valve replacement with bioprosthetic valve 05/26/2023 Ischemic cardiomyopathy 05/21/2023 Overview (05/26/2023): TTE May 2023 LVEF 35%, severe septal LVH Chronic diastolic congestive heart failure ([facility]/ [facility]) 06/24/2022 Assessment & Plan (10/18/2022 3:46 PM CDT): Does not appear significantly volume overloaded on physical exam. Is experiencing dyspnea, continue his current furosemide dosing. Morbid (severe) obesity due to excess calories 0 06/24/2022 Cerebral hemorrhage ([facility]) 08/22/2021 ICD (implantable cardioverter-defibrillator), stef alston, in situ 09/26/2020 Overview (09/26/2020): [employer] DDD Fortify Assura ICD implanted on 04/23/19 for ICM/Afib. Christian - Jhonatan (implanted elsewhere) Coronary artery disease invo lving [place] coronary artery of [place] heart without angina pectoris 09/04/2020 Overview (06/18/2023): [facility] Mar 2019: LCA, RCA and PDA 90% stenosis, patient underwent CABG/AVR bioprosthetic on 04/16/2019 Assessment & Plan (11/08/2023 6:33 PM CDT): No chest pain or anginal symptoms. Continue aspirin, Crestor, and Zetia. Assessment & Plan (08/23/2023 3:14 PM CDT): Continue medical management. Assessment & Plan (10/18/2022 3:47 PM CDT): Denying any complaints of chest pain or discomfort. Is experiencing exertional dyspnea, if no improvement in his symptoms post cardioversion consider stress testing. Continue aspirin, statin, beta-jeannette, will decrease losartan to 25 mg daily with orthostatic symptoms. Dissection of thoracoabdominal aorta (CMS/HCC) 0 09/04/2020 Overview (05/26/2023): Type B aortic dissection s/p TEVAR History of aortic aneurysm repair 08/03/2020 Longstanding persistent atrial fibrillation (CMS /HCC) 08/03/2020 Overview (06/18/2023): S/p Watchman device placement (27 mm) S/p cardioversion done on 10/31/2022 Offered PVI vs AVJ by Edenilson May 2023 Assessment & Plan (08/23/2023 3:13 PM CDT): Mr. aMher has history of AF. He is s/p Watchman Device. He recently underwent AVN ablation and upgrade to Bi-V ICD. Followed by Dr. Pyle and device clinic. Assessment & Plan (05/01/2023 12:47 PM BUNCHER MACHINE): Symptomatic persistent atrial fibrillation, status post failed cardioversion. He has a left bundle branch block pattern on his 12 lead ECG, and is status post defibrillator. The patient's last ejection fraction, performed almost 2 years ago, was normal. In the time since, I do not believe that transesophageal echocardiography (which the patient has undergone multiple occasions) has not yielded a reliable estimate of ejection fraction. I recommended that he have a repeat echocardiogram performed. If his ejection fraction is found to be normal, I would consider catheter ablation/pulmonary vein isolation for atrial fibrillation. We discussed the rationale for atrial fibrillation ablation, including the steps involved in ablation. I detailed the risks of the procedure, including vascular injury/hematoma, myocardial injury/perforation, stroke, myocardial infarction, pulmonary vein stenosis, thermal esophageal injury, phrenic nerve injury and . I estimated a 70% chance of freedom from long-term atrial arrhythmia, and the patient understands that occasionally a second procedure is necessary. If he demonstrates significant impairment of his ejection fraction, it may be best to proceed to device revision (to PERMASTONE INSTALLER) with AV junction ablation. I will reconnect that the patient after we know his current ejection fraction. Assessment & Plan (10/18/2022 3:46 PM CDT): Has been in atrial fibrillation since 10/07. Experiencing dyspnea, does not appear significantly volume overloaded on physical exam. Is post Watchman on 07/09, will plan for PRADEEP/cardioversion and see if his symptoms improve. Discussed with Dr. Gonzales. Would also recommend he start short term anticoagulation with Eliquis 5 mg twice daily day prior to procedure and 1 month post cardioversion. Mixed hyperlipidemia 04/11/2019 Assessment & Plan (10/18/2022 3:46 PM CDT): Repeat fasting lipid panel on Basilio Ruiz. Resolved Problems Problem Noted Date Diagnosed Date Resolved Date Encounter for other specified aftercare 08/03/2020 06/18/2023 Febrile illness, acute 07/05/202006/17 Fever in adult 07/04/2020 06/18/2023 Social History Tobacco Use Types Packs/Day Years Used Date Smoking Tobacco: Former Cigarettes 0.3 1 0 06/28/2019 - 06/27/2020 Smokeless Tobacco: Never Tobacco Cessation:Counseling Given: Not Answered Social Connection and Isolat ion Panel [NHANES] Answer Date Recorded In a typical week, how many times do you talk on the phone with family, friends, or neighbors? More than three times a week 08/24/2021 How often do you get togethe r with friends or relatives? Once a week 08/24/2021 How often do you attend chur ch or nondenominational services? More than 4 times per year 08/24/2021 Do you belong to any clubs o r organizations such as congregation groups, unions, fraternal or athletic groups, or school groups? No 08/24/2021 How often do you attend meet ings of the clubs or organizations you belong to? Never 08/24/2021 Are you , , di vorced, , never , or living with a partner? 08/24/2021 AUDIT-C Answer Date Recorded Q1: How often do you have a drink containing alcohol? Never 06/25/2023 Q2: How many drinks containi ng alcohol do you have on a typical day when you are drinking? Patient does not drink Q3: How often do you have si x or more drinks on one occasion? Never 06/25/2023 Overall Financial Resource Strain (CARDIA) Answe r Date Recorded How hard is it for you to pa y for the very basics like food, housing, medical care, and heating? Not hard at all 08/24/2021 PHQ-2 Answer Date Recorded PHQ-2 Total Score (If total score is 3 or more points, staff should administer the PHQ-9) 2 08/23/2021 Hunger Vital Sign Answer Date Recorded Within the past 12 months, y ou worried that your food would run out before you got the money to buy more. Never true 08/25/19 22 Within the past 12 months, t he food you bought just didn't last and you didn't have money to get more. Never true 08/24/2021 PRAPARE - Transportation Answer Date Re corded In the past 12 months, has l ack of transportation kept you from medical appointments or from getting medications? No 07/30 In the past 12 months, has l ack of transportation kept you from meetings, work, or from getting things needed for daily living? No 08/24/2021 Housing Stability Vital Sign Answer Robin e Recorded In the last 12 months, was t here a time when you were not able to pay the mortgage or rent on time? No 08/24/2021 In the last 12 months, how many places have you lived? 1 08/24/2021 In the last 12 months, was t here a time when you did not have a steady place to sleep or slept in a nursing home (including now)? No 08/24/2021 Personal Safety Answer Date Recorded Have you ever been in or are you currently in a harmful physical or emotional relationship or is someone making you feel afraid or unsafe? Denies 06/25/2023 Sex and Gender Information Value Date Recorded Sex Assigned at Not on file Legal Sex Male 11:00 AM BUNCHER MACHINE Gender Identity Not on file Sexual Orientation Not on file Last Filed Vital Signs Vital Sign Reading Time Taken Comments Blood Pressure 101/72 10/21/2023 11:30 AM CDT Pulse 70 10/21/2023 11:30 AM CDT Temperature 37.1 C (98.8 F) 06/26/2023 8:14 AM CDT Respiratory Rate 18 10/21/2023 11:3 0 AM CDT Oxygen Saturation 96% 10/21/2023 11: 30 AM CDT Inhaled Oxygen Concentration - - Weight 110.7 kg (244 lb 1.6 oz) 024 11:30 AM CDT Height 180.3 cm (5' 11 ) 10/21/2023 11: 30 AM CDT Body Mass Index 34.05 10/21/2023 11:30 AM CDT Plan of Treatment Not on file Medical Devices Implanted Type Area Lip Reading Teacher Device Identifier Shelf Expiration Date Model / Serial / Lot [employer] [id number] 31mm 10cm Active Control Conformable Thoracic Graft Stent - [id number] - [id number] Implanted:Qty : 1 on 06/29/2020 by Sam Márquez MD at [facility] Graft N/A: Aorta [employer] [id number] 04/29/2022 [id number] / [id number] / [employer] [id number] Graft Stent Brokaw Tag L15cm Od37mm Thoracic Active Control Conformable - [id number] - [id number] Implanted:Qty : 1 on 06/29/2020 by Sam Márquez MD at [facility] Graft N/A: Aorta [employer] [id number] 11/23/2021 [id number] / [id number] / [employer] Defib Cardiac Dac75do 15l90zk [place] Hf Df4 Is-4 Is-1 Cnctr [id number] - [id number] - [id number] Implanted:Qty : 1 on 06/25/2023 by Robles Pyle MD at [facility] ICD [employer] 03/30/2025 [id number] / [id number] / [employer] Quartet 4.7fr 86cm Quadripolar Is-4 Llll Connector 8 Curve Low 1456q/86 - [id number] - [id number] Implanted:Qty : 1 on 06/25/2023 by Robles Pyle MD at [facility] Lead [employer] [id number] 03/30/2026 1456Q/86 / [id number] / [employer] Ashley Watchman Flx Procedure Device Wmflxperproc - S0 - [id number] Implanted:Qty : 1 on 07/09/2022 by Augusto Gonzales MD at [facility] Left Atrial Appendage Occluder N/A: Atrial Appendage [employer] Ashley 04/25/2025 [id number] / [id number] / [id number] [employer] [id number] 8mm 80cm 70cm Removable Ring Line Standard Wall Graft Vascular - [id number] - [id number] Implanted:Qty : 1 on 06/29/2020 by Sam Márquez MD at [facility] N/A: Femoral [employer] 11/14/2024 [id number] / [id number] / [employer] [id number] 31mm 10cm Active Control Conformable Thoracic Graft Stent - [id number] - [id number] Implanted:Qty : 1 on 06/29/2020 by Sam Márquez MD at [facility] N/A: Aorta [employer] 04/29/2022 [id number] / [id number] / [employer] Device Clsr Perclose Prostyle Sut-Mediatd Closure-Repai r Sys 16627-97 - S0 - [id number] Implanted:Qty : 1 on 07/09/2022 by Augusto Gonzales MD at [facility] [employer] 03/30/2024 [id number] / [id number] / [id number] [employer] Device Clsr Perclose Prostyle Sut-Mediatd Closure-Repai r Sys 86801-20 - S0 - [id number] Implanted:Qty : 1 on 07/09/2022 by Augusto Gonzales MD at [facility] [employer] 04/30/2024 [id number] / 0 / [id number] Procedures Procedure Name Priority Date/Time Associated Diagnosis Comments DEVICE CHECK - REMOTE Routine 02/23/2024 10:59 AM BUNCHER MACHINE Ischemic cardiomyopathy CTA CHEST ABDOMEN PELVIS Schedule Routine, Read Routine (OP Routine) 08/22/2022 12:38 PM CDT H/O aortic aneurysm repair from Last 3 Months or Most Recently Relevant to Health Maintenance Results * DEVICE CHECK - REMOTE (02/23/2024 10:59 AM BUNCHER MACHINE) Anatomical Region Laterality Modality Other Narrative 02/28/2024 11:06 AM BUNCHER MACHINE Table formatting from the original result was not included. BiV ICD CHECK (REMOTE) Patient ID: David Maher is a 73 y.o. male. This patient received a [employer]enez BiV ICD. They had a routine remote transmission on 02/23/2024 Device implant indications: Ischemic cardiomyopathy, left bundle-branch block, AFib, status post AVJ Interrogation of the patient's device demonstrates the following: Presenting EGM: AFib with Bi V pace @ 75 bpm Original Device Settings Right Ventricle Left Ventricle Sensitivity (mV) Auto mV N/A mV Pacing Outputs 1.0 V @ 0.50 ms 3.625 V @ 0.50 ms Testing Measurements Right Ventricle Left Ventricle Sensitivity (mV) 10.6 mV Not done mV Impedence (Ohms) 460 ohms 840 ohms Pace Threshold 0.5 V @ 0.50 ms 3.125 V @ 0.50 ms Pacing % 97 % 97 % HV Lead Impedance 80 ohms N/A Battery Status: 7.8-8.1 years to JOYCE Episodes last 90 days/Comments: 1 Listed nonsustained ventricular events there was no EGM available for review NORMAL DEVICE FUNCTION PROGRAMMED MEDICATIONS: Anti-coagulant(s): Aspirin 81 mg (watchman) Anti-arrhythmic(s): Toprol-XL 25 mg PLAN: 1) Normal Jimenez BiV ICD evaluation 2) Jimenez remote transmission scheduled in 3 months. 3) Programming appropriate for device settings Amber Metz RN us Robles Pyle MD [facility] PRO CEDURES Final Result * CTA Chest Abdomen Pelvis (08/22/2022 12:38 PM CDT) Anatomical Region Laterality Modality Body N/A Computed Tomogra phy 08/22/2022 2:08 PM CDT Impressions 08/22/2022 2:43 PM CDT 1. Unchanged postoperative changes of thoracic endovascular aortic repair with stent graft in the descending aorta and unchanged dilation of the aorta proximal and distal to the stent. 2. Unchanged thrombosed femoral-femoral bypass graft. Dictated by: Stefany Magana M.D. The radiology attending physician has personally reviewed this study, and had reviewed and/or edited this written report and agrees with it. Electronically signed by: Jj Ivy M.D. Narrative 08/22/2022 2:43 PM CDT EXAMINATION: CT ANGIOGRAPHY OF THE CHEST, ABDOMEN AND PELVIS WITH AND WITHOUT CONTRAST HISTORY: 72-year-old man status post TEVAR for type B aortic dissection. TECHNIQUE: CT angiography of the chest, abdomen and pelvis was performed prior to and following the uneventful intravenous administration of 120 ml Optiray-350 using the post-endoluminal stent graft protocol. Vascular 3D images were generated on a dedicated workstation and also reviewed. COMPARISON: 08/09/21 FINDINGS: VASCULAR FINDINGS: Stable postsurgical changes of thoracic endovascular stent repair for type B aortic dissection. Unchanged residual dissection extending from just distal to the stent to the bilateral common iliac arteries and into the proximal right external iliac artery. Unchanged fenestration just above the diaphragmatic hiatus. The celiac, superior and inferior mesenteric arteries, and left renal artery arise off of the true lumen. The right renal artery is predominantly supplied by the false lumen. The dissection flap extends into the main left renal artery, unchanged. Unchanged partial thrombosis of the most cephalad aspect of the false lumen. The descending thoracic aorta just proximal to the stent is unchanged and measures approximately 37 x 36 mm, previously 37 x 38 mm when remeasured in a similar fashion. Maximum dimension of the descending aorta just distal to the stent measures approximately 44 x 45 mm, previously 44 x 44 mm. Unchanged dilation of the right common iliac artery measuring approximately 23 x 26 mm, previously 24 x 25 mm. Stable postsurgical changes of femoral-femoral bypass which remains occluded. NON-VASCULAR FINDINGS: Chest: Unchanged 2 mm nodules in the right upper lobe (series 7, image 54) and right lower lobe (series 7, image 65). Calcified granulomas within the left lower lobe. No pleural effusion or pneumothorax. The central airways are patent. Postsurgical changes of coronary artery bypass graft and median sternotomy. Left subclavian pacer/defibrillator leads terminate within the right atrium and right ventricle. Interval placement of a left atrial appendage occluder device. Abdomen/Pelvis: The liver, gallbladder, pancreas, bilateral adrenal glands are normal. Scattered calcified splenic granulomas. Left renal cysts. No hydronephrosis or renal calculi. Bowel loops are normal in caliber without evidence of focal wall thickening or obstruction. Colonic diverticulosis without evidence of acute diverticulitis. The appendix is normal. No free air or free intraperitoneal fluid. No abdominal or pelvic lymphadenopathy. The bladder is decompressed. The prostate is present. No suspicious osseous lesions. Severe degenerative disc disease L3-L4. Procedure Note Jj Ivy MD - 08/22/2022 EXAMINATION: CT ANGIOGRAPHY OF THE CHEST, ABDOMEN AND PELVIS WITH AND WITHOUT CONTRAST HISTORY: 72-year-old man status post TEVAR for type B aortic dissection. TECHNIQUE: CT angiography of the chest, abdomen and pelvis was performed prior to and following the uneventful intravenous administration of 120 ml Optiray-350 using the post-endoluminal stent graft protocol. Vascular 3D images were generated on a dedicated workstation and also reviewed. COMPARISON: 08/09/21 FINDINGS: VASCULAR FINDINGS: Stable postsurgical changes of thoracic endovascular stent repair for type B aortic dissection. Unchanged residual dissection extending from just distal to the stent to the bilateral common iliac arteries and into the proximal right external iliac artery. Unchanged fenestration just above the diaphragmatic hiatus. The celiac, superior and inferior mesenteric arteries, and left renal artery arise off of the true lumen. The right renal artery is predominantly supplied by the false lumen. The dissection flap extends into the main left renal artery, unchanged. Unchanged partial thrombosis of the most cephalad aspect of the false lumen. The descending thoracic aorta just proximal to the stent is unchanged and measures approximately 37 x 36 mm, previously 37 x 38 mm when remeasured in a similar fashion. Maximum dimension of the descending aorta just distal to the stent measures approximately 44 x 45 mm, previously 44 x 44 mm. Unchanged dilation of the right common iliac artery measuring approximately 23 x 26 mm, previously 24 x 25 mm. Stable postsurgical changes of femoral-femoral bypass which remains occluded. NON-VASCULAR FINDINGS: Chest: Unchanged 2 mm nodules in the right upper lobe (series 7, image 54) and right lower lobe (series 7, image 65). Calcified granulomas within the left lower lobe. No pleural effusion or pneumothorax. The central airways are patent. Postsurgical changes of coronary artery bypass graft and median sternotomy. Left subclavian pacer/defibrillator leads terminate within the right atrium and right ventricle. Interval placement of a left atrial appendage occluder device. Abdomen/Pelvis: The liver, gallbladder, pancreas, bilateral adrenal glands are normal. Scattered calcified splenic granulomas. Left renal cysts. No hydronephrosis or renal calculi. Bowel loops are normal in caliber without evidence of focal wall thickening or obstruction. Colonic diverticulosis without evidence of acute diverticulitis. The appendix is normal. No free air or free intraperitoneal fluid. No abdominal or pelvic lymphadenopathy. The bladder is decompressed. The prostate is present. No suspicious osseous lesions. Severe degenerative disc disease L3-L4. IMPRESSION: 1. Unchanged postoperative changes of thoracic endovascular aortic repair with stent graft in the descending aorta and unchanged dilation of the aorta proximal and distal to the stent. 2. Unchanged thrombosed femoral-femoral bypass graft. Dictated by: Stefany F Feister, M.D. The radiology attending physician has personally reviewed this study, and had reviewed and/or edited this written report and agrees with it. Electronically signed by: Jj Ivy M.D. Amber Gutierrez SYSTEMS ENGINEER IMG CT PROCEDURES Final R esult from Last 3 Months or Most Recently Relevant to Health Maintenance Insurance MEDICARE TheySay MEDICARE MEDICARE TheySay MEDICARE SOLUTIONS Advance Directives For more information, please contact: [phone] * Full Code (Latest Code Status on File) Date Activated Date Inactivated Comments 07/09/2022 1:39 PM 07/10/2022 3:02 PM * Full Code Date Activated Date Inactivated Comments 08/22/2021 11:35 AM 08/30/2021 3:47 PM * Full Code Date Activated Date Inactivated Comments 07/04/2020 9:00 PM 07/07/2020 6:59 PM * Full Code Date Activated Date Inactivated Comments 06/29/2020 5:31 AM 07/02/2020 8:45 PM * Full Code Date Activated Date Inactivated Comments 06/28/2020 9:50 PM 06/29/2020 5:31 AM Care Teams Manufacturing Plant Manager Relationship Specialty Start Date End Date Kiya Tucker PA [facility] [place] [address] PCP - General Family Practice 01/09/23
--- OUTSIDE RECORDS SUMMARY | 2024-05-14 12:38 | XMS_ITS | Encounter Summary ---
Author Organization [facility] System Address [facility] [place] [address] Care Team Providers Care Chronic Disease Epidemiologist Name Role Phone Papito Saavedra MD Primary Care Provider [phone] Kyle Evans MD Unavailable [phone] Encounter Details Date Type Department Care Team (Late st Contact Info) Description 01/11/2020 [facility] at [address] [address] Caity Rojas MA Social History Tobacco Use Types Packs/Day Years Used Date Smoking Tobacco: Every Day Cigarettes Smokeless Tobacco: Never Comments:around 2 packs a we ek currently Alcohol Use Standard Drinks/Week Comments Yes 0 (1 standard drink = 0.6 oz pur e alcohol) binges AUDIT-C Answer Date Recorded Frequency of Alcohol Consumption 2-3 times a wee k 04/10/2019 Average Number of Drinks 10 or more 020 Frequency of Binge Drinking Weekly 03/31 Sex and Gender Information Value Date Recorded Sex Assigned at Not on file Legal Sex Male 8:26 PM CDT Gender Identity Not on file Sexual Orientation Not on file Occupation Industry Job Start Date Job End Date Not on file Not on file Not on file Not on file COVID-19 Exposure Response Date Recorded In the last month, have you been in contact with someone who was confirmed or suspected to have Coronavirus / COVID-19? No / Unsure 01/10/2020 12:56 PM CDT documented as of this encounter Functional Status * RETIRED Are you deaf or do you have serious difficulty hearing Answer Date of Assessment Author Status No 04/10/2019 5:57 PM COMPOUND FINISHER Activ e * RETIRED Are you blind or do you have serious difficulty seeing, even when wearing glasses? Answer Date of Assessment Author Status No 04/10/2019 5:57 PM COMPOUND FINISHER Activ e * Do you have serious difficulty walking or climbing stairs? Answer Date of Assessment Author Status No 04/10/2019 5:57 PM Mariah Smith RN Active * Do you have difficulty dressing or bathing? Answer Date of Assessment Author Status No 04/10/2019 5:57 PM Mariah Smith RN Active * Because of a physical, mental, or emotional condition, do you have difficulty doing errands alone such as visiting a doctor's office or shopping? Answer Date of Assessment Author Status No 04/10/2019 5:57 PM Mariah Smith RN Active documented as of this encounter Mental Status * Because of a physical, mental, or emotional condition, do you have serious difficulty concentrating, remembering, or making decisions? Answer Entry Date Author Status No 04/10/2019 5:57 PM Mariah mSith RN Active documented in this encounter Plan of Treatment Not on file documented as of this encounter Procedures Procedure Name Priority Date/Time Associated Diagnosis Comments BASIC METABOLIC PANEL Routine 01/10/2020 documented in this encounter Results * (ABNORMAL) BASIC METABOLIC PANEL (01/10/2020) SODIUM S/P/B 141 POTASSIUM S/P/B 4.3 CO2 22 CHLORIDE S/P/B 106 GLUCOSE 84 mg/dL CALCIUM S/P/B 9.7 BUN 17 CREATININE S/P/B 1.55(A) 0.7 - 1.3 EGFR AFR. AMER. 51 <=90 EGFR NON-AFR. AMER. 44 <=90 01/10/2020 us Doc [facility] LABORATORY Final Result documented in this encounter Visit Diagnoses Not on filedocumented in this encounter Care Teams Chronic Disease Epidemiologist Relationship Specialty Start Date End Date Papito Saavedra MD [address] [place] [address] PCP - General INTERNAL MEDICINE 04/10/19 Kyle Evans MD [facility]. [address] [address] [place] Blood Tester CARDIOVASCULAR DISEASE 05/24/19 documented as of this encounter
--- OUTSIDE RECORDS SUMMARY | 2024-05-14 12:38 | XMS_ITS | Encounter Summary ---
Author Organization [facility] Healthcare Address [address] [place] [address] Care Team Providers Care Shade Maker Name Role Phone Kiya Tucker Primary Care Provider [phone] Encounter Details Date Type Department Care Team (Late st Contact Info) Description 05/13/2024 Orders Only [facility] Transplant Heart [address] [facility] [address] [phone] [place] [address] Josy Hutton RN Social History Tobacco Use Types Packs/Day Years Used Date Smoking Tobacco: Former Cigarettes 0.3 1 0 06/28/2019 - 06/27/2020 Smokeless Tobacco: Never Social Connection and Isolat ion Panel [NHANES] Answer Date Recorded In a typical week, how many times do you talk on the phone with family, friends, or neighbors? More than three times a week 08/24/2021 How often do you get togethe r with friends or relatives? Once a week 08/24/2021 How often do you attend chur ch or sabianism services? More than 4 times per year 08/24/2021 Do you belong to any clubs o r organizations such as spiritism groups, unions, fraternal or athletic groups, or [...] place to sleep or slept in a prison (including now)? No 08/24/2021 Personal Safety Answer Date Recorded Have you ever been in or are you currently in a harmful physical or emotional relationship or is someone making you feel afraid or unsafe? Denies 06/25/2023 Sex and Gender Information Value Date Recorded Sex Assigned at Not on file Legal Sex Male 11:00 AM LOG ROLLER Gender Identity Not on file Sexual Orientation Not on file documented as of this encounter Plan of Treatment Not on file documented as of this encounter Visit Diagnoses Not on filedocumented in this encounter Historical Medications * This list may reflect changes made after this encounter. allopurinoL (ZYLOPRIM) 100 mg tablet Take 0.5 tablets (50 mg total) by mouth daily 03/03/2024 added in this encounter Care Teams Shade Maker Relationship Specialty Start Date End Date Kiya Tucker PA [address] [place] [address] PCP - General Family Practice 01/09/23 documented as of this encounter
--- OUTSIDE RECORDS SUMMARY | 2024-05-14 12:38 | XMS_ITS | Clinical Summary ---
Author Organization [facility] System Address [address] [place] [address] Care Team Providers Care Temperature Logging Operator Name Role Phone Papito Saavedra MD Primary Care Provider [phone] Kyle Evans MD Unavailable [phone] Allergies Active Allergy Reactions Criticality Noted Date Comments Lisinopril Cough 04/12/2019 Statins Joint Pain 04/12/2019 Medications * This document contains information received from the source organization and may not represent a complete record from that organization. lorazepam 0.5 MG tabletIndications:A nxiety Take 0.5 mg by mouth 2 (two) times daily as needed. Indications: Feeling Anxious 03/30/20 Active omeprazole 20 MG capsuleIndications: Nonerosive Gastroesophagel Reflux Disease Take 20 mg by mouth daily. Indications: Nonerosive GERD 04/04/19 Active citalopram 20 MG tabletIndications:M ood Disorder Take 20 mg by mouth daily as needed. Indications: Mood Disorder TAKE 1 AND 1/2 TABLETS DAILY 03/30/20 Active psyllium 51.7 % packetIndications:C onstipation Take 1 packet by mouth nightly at bedtime. Indications: Constipation 04/27/19 Active aspirin 81 MG chewable tablet [The details of the medication are not available because there are pending changes by a home health clinician.] 90 tablet 1 04/27/19 Active Additional Information Patient taking differently:81 mg Oral Daily,Indications: Anticoagulant Therapy, Reported on 04/27/2019 aspirin-acetaminoph en-caffeine 250-250-65 MG tablet Take 1 tablet by mouth every 6 (six) hours as needed for Pain. Active cetirizine 10 MG tablet Take 10 mg by mouth daily. Active Cholecalciferol (VITAMIN D3) 250 MCG ([address] UT) Tab Take 2 tablets by mouth daily. Active Potassium 99 MG tablet Take 1 tablet by mouth daily as needed. Active niacin 500 MG Tab Take 2 tablets by mouth daily. after meals Active Cyanocobalamin (HM SUPER VITAMIN B12) 2500 MCG Chew Tab Chew 1 tablet by mouth every morning. Active magnesium oxide 400 (240 Mg) MG tablet Take 400 mg by mouth daily. Active PARoxetine 20 MG tablet Take 20 mg by mouth daily. 11/05/19 20 Active furosemide 20 MG tablet Take 1 tablet (20 mg total) by mouth every other day. 90 tablet 1 01/14/20 20 Active warfarin 5 MG tablet 2.5 mg Tues, Thurs, 5 mg all other days 90 tablet 1 06/24/19 21 Active metoprolol succinate ER 25 MG 24 hr tablet Take 1 tablet (25 mg total) by mouth every evening. 90 tablet 1 06/24/19 21 Active ezetimibe 10 MG tablet Take 1 tablet (10 mg total) by mouth nightly at bedtime. 90 tablet 1 06/24/19 21 Active Active Problems Problem Noted Date Diagnosed Date LYNNE (acute kidney injury) 04/17/2019 Aortic regurgitation 04/17/2019 History of partial nephrectomy 04/17/2019 Mixed hyperlipidemia 04/11/2019 Acute systolic congestive heart failure ([facility]) 04/10/2019 History of kidney cancer 03/31/2014 Overview (04/11/2019): surgery only. no chemo/rads MISTY (obstructive sleep apnea) Hypertension Overview (04/11/2019): no longer on meds Diverticulitis Tobacco abuse Immunizations Name Administration Dates Next Due Afluria 36 MONTHS+ (Prefilled Syringe IIV4) 03/31 Family History Medical History Relation Comments diverticulitis Father Coronary artery disease Mother Hypertension Mother Relation Status Comments Father Mother Social History Tobacco Use Types Packs/Day [...] file Not on file Not on file Last Filed Vital Signs Vital Sign Reading Time Taken Comments Blood Pressure 136/68 12/21/2019 10:53 AM CDT Pulse 70 12/21/2019 10:53 AM CDT Temperature 35.7 C (96.3 F) 05/24/2019 9:11 AM DRAMA DIRECTOR Respiratory Rate 18 05/24/2019 9:11 AM DRAMA DIRECTOR Oxygen Saturation 96% 12/21/2019 10:53 AM CDT Inhaled Oxygen Concentration - - Weight 123.8 kg (273 lb) 12/21/2019 10:53 AM CDT Height 180.3 cm (5' 11 ) 12/21/2019 10:53 AM CDT Body Mass Index 38.08 12/21/2019 10:53 AM CDT Plan of Treatment Health Maintenance Due Date Last Done Comments Pneumococcal Vaccine: 65+ Ye ars (1 of 2 - PCV) 1954 Hepatitis C 1966 DTaP, Tdap and Td Vaccines ( 1 - Tdap) 1967 Zoster Vaccines (1 of 2) 1998 Annual Medicare Wellness Visit 2013 RSV Immunization or 60+ Years (1 - 1-dose 75+ series) 2023 COVID-19 Vaccine ( - 2023-2 5 season) 2023 Influenza Adult (#1) 2023 04/10/2019 Meningococcal B Vaccine Aged Out No l onger eligible based on patient's age to complete this topic Meningococcal Vaccine Aged Out No marzena jayesh eligible based on patient's age to complete this topic RSV Immunizations Under 20 Months Aged Out No longer eligible based on patient's age to complete this topic Medical Devices Implanted Type Area Special Education Secretary Device Identifier Shelf Expiration Date Model / Serial / Lot Icd-04/23/2019 Implanted:04/01 by Mason Moran MD (Quantity not on file) ICD Left: Chest Description:GENERATOR-SN [id number] STS RV [id number] Valve Aor 18.5mm 27mm Msc Ul; [facility]; - [id number] Implanted:Qty: 1 on 04/16/2019 by Paolo Nelson RNFA at [facility] Valve Implant N/A: Heart [employer] 04/29/2023 [id number] / [id number] / Suture Sternotomy Kit - [id number] Implanted:Qty: 1 on 04/16/2019 by Paolo Nelson RNFA at [facility] Wire N/A: Sternum A&E Axcient 07/30/2023 [id number] / / [id number] Description:5 wires implante d Wire Sut 18in Myowr2 7;.5 [place]; Ccs-1 Mfil; Cnv - [id number] Implanted:Qty: 1 on 04/16/2019 by Paolo Nelson RNFA at [facility] Wire N/A: Sternum A&Predictry 06/30/2023 [id number] / / [id number] Description:2 [place] [id number] [facility] MEDICARE [facility] Advance Directives * Full Code (Latest Code Status on File) Date Activated Date Inactivated Comments 05/07/2019 2:03 PM 05/07/2019 4:34 PM * Full Code Date Activated Date Inactivated Comments 04/27/2019 12:31 PM 05/07/2019 9:52 AM * Full Code Date Activated Date Inactivated Comments 04/23/2019 5:18 PM 04/26/2019 1:59 PM * Full Code Date Activated Date Inactivated Comments 04/17/2019 11:23 AM 04/23/2019 5:18 PM * Full Code Date Activated Date Inactivated Comments 04/13/2019 4:44 PM 04/17/2019 11:23 AM Care Teams Temperature Logging Operator Relationship Specialty Start Date End Date Papito Saavedra MD [facility] [place] [address] PCP - General INTERNAL MEDICINE 04/10/19 Kyle Evans MD [address] [address] [place] Wharf Tender Helper CARDIOVASCULAR DISEASE 05/24/19
--- OUTSIDE RECORDS SUMMARY | 2024-05-14 12:38 | XMS_ITS | Encounter Summary ---
Author Organization [facility] Healthcare Address [address] [place] [address] Care Team Providers Care Head Nurse Name Role Phone Kiya Tucker Primary Care Provider [phone] Encounter Details Date Type Department Care Team (Late st Contact Info) Description 05/13/2024 Telephone [facility] Transplant Heart [address] [facility] [address] [place] [address] Josy Hutton RN Social History Tobacco Use [...] often do you attend chur ch or druze services? More than 4 times per year 08/24/2021 Do you belong to any clubs o r organizations such as hindu groups, unions, fraternal or athletic groups, or [...] place to sleep or slept in a care home (including now)? No 08/24/2021 Personal Safety Answer Date Recorded Have you ever been in or are you currently in a harmful physical or emotional relationship or is someone making you feel afraid or unsafe? Denies 06/25/2023 Sex and Gender Information Value Date Recorded Sex Assigned at Not on file Legal Sex Male 11:00 AM LEAK DETECTION ENGINEER Gender Identity Not on file Sexual Orientation Not on file documented as of this encounter Miscellaneous Notes * Telephone Encounter - Guilleeulaliacarla JihanDICKSON soto - 05/14/2024 10:02 AM LEAK DETECTION ENGINEER Spoke with daughter regarding PAP. Would like to apply. Request rafaela be sent via [employer] after signed by provider. Form emailed to [place] for provider sig DETECTION ENGINEER * Telephone Encounter - Josy Hutton RN - 05/13/2024 10:00 AM CST Pts Entresto copay has increased this year and pt expected to pay $350 this month. Pt would like toapply for patient assistance. Could you please reach out to pts dtr Minna [phone] to arrange for paperwork to be completed? Thanks DETECTION ENGINEER documented in this encounter Plan of Treatment Not on file documented as of this encounter Visit Diagnoses Not on filedocumented in this encounter Care Teams Head Nurse Relationship Specialty Start Date End Date Kiya Tucker PA [address] [place] [address] PCP - General Family Practice 01/09/23 documented as of this encounter
--- OUTSIDE RECORDS SUMMARY | 2024-05-14 12:38 | XMS_ITS | Encounter Summary ---
Author Organization [facility] Address [facility] [place] [address] Care Team Providers Care Car Supplier Name Role Phone Papito Saavedra MD Primary Care Provider [phone] Kyle Evans MD Unavailable Encounter Details Date Type Department Care Team (Late st Contact Info) Description 02/14/2020 [facility] at [address] [address] Caity Rojas MA Social History Tobacco Use [...] or suspected to have Coronavirus / COVID-19? Unable to assess 02/02/2020 10:34 AM SUPERINTENDENT OF GENERATION documented as of this encounter Functional Status * RETIRED Are you deaf or do you have serious difficulty hearing Answer Date of Assessment Author Status No 04/10/2019 5:57 PM SUPERINTENDENT OF GENERATION Activ e * RETIRED Are you blind or do you have serious difficulty seeing, even when wearing glasses? Answer Date of Assessment Author Status No 04/10/2019 5:57 PM SUPERINTENDENT OF GENERATION Activ e * Do you have serious [...] 5:57 PM Mariah Smith RN Active documented in this encounter Plan of Treatment Not on file documented as of this encounter Procedures Procedure Name Priority Date/Time Associated Diagnosis Comments BASIC METABOLIC PANEL Routine 02/11/2020 documented in this encounter Results * BASIC METABOLIC PANEL (02/11/2020) SODIUM S/P/B 140 POTASSIUM S/P/B 4.3 CO2 25 CHLORIDE S/P/B 106 GLUCOSE 104 mg/dL CALCIUM S/P/B 9.6 BUN 18 CREATININE S/P/B 1.28 0.7 - 1.3 EGFR AFR. AMER. 65 <=90 EGFR NON-AFR. AMER. 56 <=90 02/11/2020 us Doc [facility] Abstract LABORATORY Final Result documented in this encounter Visit Diagnoses Not on filedocumented in this encounter Care Teams Car Supplier Relationship Specialty Start Date End Date Papito Saavedra MD [address] [place] [address] PCP - General INTERNAL MEDICINE 04/10/19 Kyle Evans MD [facility]. [address] [address] [place] Golf Course Designer CARDIOVASCULAR DISEASE 05/24/19 documented as of this encounter
--- OUTSIDE RECORDS SUMMARY | 2024-05-14 12:38 | XMS_ITS | Encounter Summary ---
Author Organization [facility] Address [address] [place] [address] Phone Care Team Providers Care Cafe Worker Name Role Phone Kiya Tucker Primary Care Provider [phone] Encounter Details Date Type Department Care Team (Late st Contact Info) Description 05/12/2024 Telephone [facility] Cardiology [address] [facility] [address]th [place] [address] [place] [address] Glory Dailey NP [address] [place] [address] Social History Tobacco Use Types Packs/Day Years [...] 08/24/2021 How often do you attend chur or scientology services? More than 4 times per year 08/24/2021 Do you belong to any clubs o r organizations such as pentecostalism groups, unions, fraternal or athletic groups, or [...] No 08/24/2021 Housing Stability Vital Sign Answer Rboin e Recorded In the last 12 months, [...] place to sleep or slept in a mcc (including now)? No 08/24/2021 Personal Safety Answer Date Recorded Have you ever been in or are you currently in a harmful physical or emotional relationship or is someone making you feel afraid or unsafe? Denies 06/25/2023 Sex and Gender Information Value Date Recorded Sex Assigned at Not on file Legal Sex Male 11:00 AM ILLUMINATOR Gender Identity Not on file Sexual Orientation Not on file documented as of this encounter Miscellaneous Notes * Telephone Encounter - Josy Hutton RN - 05/13/2024 4:12 PM CST Pt aware. MINATOR * Telephone Encounter - Josy Hutton RN - 05/13/2024 4:11 PM CST Discussed with pharmacist. Since the copay is only for tier 3 medicines we will send a script for valsartan 40mg daily until we can try to get medicine through [employer]. MINATOR * Telephone Encounter - Josy Hutton RN - 05/13/2024 9:53 AM CST Spoke with patient about increasing medicine cost. He reports that he now has a $2000 deductible that has to be met until medicine perez comes down. He will be responsible for paying $350 a month forEntresto until deductible has been met. Offered for pt to apply for financial assistance and free medicine through [employer]. Pt would like to apply. Will have Jihan reach out to pts daughter Minna to file necessary paperwork. I offered to send in a script for valsartan until we can see about patient assistance. Pt would like to know what Glory would like for him to do. Unsure if he should pay$350 or have valsartan called in and apply for financial. MINATOR * Telephone Encounter - Estefani Gonzalez - 05/12/2024 3:24 PM CST [place] Pt stating the Co-pay for his Entresto jumped from $50 to over $350.00 this month. This is more than he can afford. Pt wondering if there are any alternate medications that he can try? Pls return call to discuss. MINATOR documented in this encounter Plan of Treatment Not on file documented as of this encounter Visit Diagnoses Not on filedocumented in this encounter Care Teams Cafe Worker Relationship Specialty Start Date End Date Kiya Tucker PA [address] [place] [address] PCP - General Family Practice 01/09/23 documented as of this encounter
--- OUTSIDE RECORDS SUMMARY | 2024-05-14 12:38 | XMS_ITS | Clinical Summary ---
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 Is experiencing dyspnea, continue his current furosemide dosing. Morbid (severe) obesity due to excess calories 0 06/24/2022 Cerebral hemorrhage (CMS/HCC) 08/22/2021 ICD (implantable cardioverter-defibrillator), stef alston, in situ 09/26/2020 Overview (09/26/2020): [employer] DDD Fortify Assura ICD implanted on 04/23/19 for ICM/Afib. Theodos - Newman (implanted elsewhere) Coronary artery disease invo lving nisqually coronary artery of nisqually heart without angina pectoris 09/04/2020 Overview (06/18/2023): [facility] Mar 2019: LCA, RCA and PDA 90% [...] & Plan (08/23/2023 3:13 PM CDT): Mr. Maher has history of AF. He is s/p Watchman Device. He recently underwent AVN ablation and upgrade to Bi-V ICD. Followed by Dr. Pyle and device clinic. Assessment & Plan (05/01/2023 12:47 PM QUILLER RUNNER): Symptomatic persistent atrial fibrillation, status post failed [...] best to proceed to device revision (to MAIL DISTRIBUTOR) with AV junction ablation. I will reconnect [...] PM CDT): Repeat fasting lipid panel on TroyBasilio davis. Resolved Problems Problem Noted Date Diagnosed Date Resolved Date Encounter for other specified aftercare 08/03/2020 06/18/2023 Febrile illness, acute 07/05/202006/17 Fever in adult 07/04/2020 06/18/2023 Encounters Date Type Department Care Team Description 05/13/2024 Orders Only [facility] Transplant Heart [address] [facility] [address] [phone] [place] [address] Josy Hutton, RN 05/13/2024 Telephone [facility] Transplant Heart [address] [place] [address] [address] [id number] [place] [address] Josy Hutton, RN 05/13/2024 Orders Only [facility] Transplant Heart [address] [place] [address] [address] [phone] [place] [address] Josy Hutton, RN 05/12/2024 Telephone [facility] Cardiology [address] [place] [address] Advanced Medicine 8th [place] [address] [place] [phone] Glory Dailey NP 04/23/2024 Orders Only Cardiovascular and Thoracic Surgery [address] [facility] [address] [place] [id number] Amber Gutierrez NP S/P aortic valve replacement with bioprosthetic valve (Primary Dx); S/P insertion of endovascular thoracic aortic stent graft 02/23/2024 12:30 PM QUILLER RUNNER Ancillary Procedure [facility] [address] [facility] [address] [place] [id number] ICD (implantable cardioverter-defibrill ator), dual, in situ (Primary Dx); Ischemic cardiomyopathy from Last 3 Months Surgical History Surgery Date Site/Laterality Comments NEPHRECTOMY Left CARDIAC SURGERY ARTERIAL ANEURYSM REPAIR TEVAR AORTIC VALVE REPLACEMENT 04/16/2019 AVR CABG x 4 CORONARY ARTERY BYPASS GRAFT 04/16/2019 AVR CABG x 4 CARDIAC DEFIBRILLATOR PLACEMENT 03/31/2019 - 04/30/2019 Medical History Medical History Date Comments Hypertension Coronary artery disease ETOH abuse Dissection of aorta (HCC) type B A-fib (CMS/HCC) (HCC) Acute on chronic diastolic c ongestive heart failure (CMS/HCC) (HCC) 06/24/2022 Family History Medical History Relation Name Comments Heart attack Mother Hypertension Mother Relation Name Status Comments Mother Social History Tobacco Use [...] How often do you attend chur or latter-day services? More than 4 times per year 08/24/2021 Do you belong to any clubs o r organizations such as buddhist groups, unions, fraternal or athletic groups, or [...] place to sleep or slept in a halfway (including now)? No 08/24/2021 Personal Safety Answer Date Recorded Have you ever been in or are you currently in a harmful physical or emotional relationship or is someone making you feel afraid or unsafe? Denies 06/25/2023 Sex and Gender Information Value Date Recorded Sex Assigned at Not on file Legal Sex Male 11:00 AM QUILLER RUNNER Gender Identity Not on file Sexual Orientation Not on file Obstetrics History Last Filed Vital Signs Vital Sign Reading [...] 10/21/2023 11:30 AM CDT Plan of Treatment Health Maintenance Due Date Last Done Comments Hepatitis C Screening 1950 Pneumococcal vaccine 65+ (1 of 2 - PCV) 1954 DTaP/Tdap/Td Vaccine (1 - Tdap) 1959 Hepatitis B Screening 1966 Zoster Vaccine (1 of 2) 1998 Well Visit 65+ 2013 Depression Screening 08/22/2022 08/22/2021 Influenza Vaccine (#1) 2023 04/10/2019 Fall Risk Assessment 06/25/2024 06/26/2023 Abdominal Aortic Aneurysm (A AA) Screen Completed 08/22/2022, 08/09/2021, 07/04/2020, Additional history exists Medical Devices Implanted Type Area Scale Agent Device Identifier Shelf Expiration Date Model / Serial / Lot Wl [employer] [id number] 31mm 10cm Active Control Conformable Thoracic Graft Stent - [id number] - [id number] Implanted:Qty : 1 on 06/29/2020 by Sam Márquez MD at [facility] Graft N/A: Aorta Wl [employer] [id number] 04/29/2022 [id number] / [id number] / W[employer] [id number] Graft Stent [employer] Tag L15cm Od37mm Thoracic Active Control Conformable - [id number] - [id number] Implanted:Qty : 1 on 06/29/2020 by Sam Márquez MD at [facility] Graft N/A: Aorta W[employer] [id number] 11/23/2021 [id number] / [id number] / [employer] Defib Cardiac Vlw14em 63r17dh Ward Hf Df4 Is-4 Is-1 Cnctr [id number] - [id number] - [id number] Implanted:Qty : 1 on 06/25/2023 by Robles Pyle MD at [facility] ICD [employer] 03/30/2025 [id number] / [id number] / [employer] Quartet 4.7fr 86cm Quadripolar Is-4 Llll Connector 8 Curve Low 1456q/86 - [id number] - [id number] Implanted:Qty : 1 on 06/25/2023 by Robles Pyle MD at [facility] Lead [employer] [id number] 03/30/2026 1456Q/86 / [id number] / [employer] Ashley Watchman Flx Procedure Device Wmflxperproc - S0 - [id number] Implanted:Qty : 1 on 07/09/2022 by Augusto Gonzales MD at [facility] Left Atrial Appendage Occluder N/A: Atrial Appendage [employer] Ashley 04/25/2025 [id number] / [id number] / [id number] Wl [employer] [id number] 8mm 80cm 70cm Removable Ring Line Standard Wall Graft Vascular - [id number] - [id number] Implanted:Qty : 1 on 06/29/2020 by Sam Márquez MD at [facility] N/A: Femoral Wl [employer] 11/14/2024 [id number] / [id number] / Wl [employer] [id number] 31mm 10cm Active Control Conformable Thoracic Graft Stent - [id number] - [id number] Implanted:Qty : 1 on 06/29/2020 by Sam Márquez MD at [facility] N/A: Aorta Wl [employer] 04/29/2022 [id number] / [id number] / [employer] Device Clsr Perclose Prostyle Sut-Mediatd Closure-Repai r Sys 97115-90 - S0 - [id number] Implanted:Qty : 1 on 07/09/2022 by Augusto Gonzales MD at [facility] [employer] 03/30/2024 [id number] / 0 / [id number] [employer] Device Clsr Perclose Prostyle Sut-Mediatd Closure-Repai r Sys 87288-20 - S0 - [id number] Implanted:Qty : 1 on 07/09/2022 by Augusto Gonzales MD at [facility] [employer] 04/30/2024 [id number] / 0 / [id number] Procedures Procedure Name Priority Date/Time Associated Diagnosis Comments DEVICE CHECK - REMOTE Routine 02/23/2024 10:59 AM QUILLER RUNNER Ischemic cardiomyopathy CTA CHEST ABDOMEN PELVIS Schedule Routine, Read Routine (OP Routine) 08/22/2022 12:38 PM CDT H/O aortic aneurysm repair from Last 3 Months or Most Recently Relevant to Health Maintenance Results * DEVICE CHECK - REMOTE (02/23/2024 10:59 AM QUILLER RUNNER) Anatomical Region Laterality Modality Other Narrative 02/28/2024 11:06 AM QUILLER RUNNER Table formatting from the original result was [...] signed by: Jj Ivy M.D. Amber Gutierrez NP IM CT PROCEDURES Final R esult from Last 3 Months or Most Recently Relevant to Health Maintenance Insurance MEDICARE SOLUTIONS MEDICARE MEDICARE deCarta MEDICARE SOLUTIONS Advance Directives For more information, please contact: [phone] * Full Code (Latest Code Status on [...] 9:50 PM 06/29/2020 5:31 AM Care Teams Director Software Relationship Specialty Start Date End Date Kiya Tucker PA [address] [place] [id number] PCP - General Family Practice 01/09/23
--- OUTSIDE RECORDS SUMMARY | 2024-05-14 12:38 | XMS_ITS | Encounter Summary ---
Author Organization [facility] Address [address] [place] [address] Care Team Providers Care Auricular Acupuncturist Name Role Phone Kiya Tucker Primary Care Provider Encounter Details Date Type Department Care Team (Late st Contact Info) Description 05/13/2024 Orders Only [facility] Transplant Heart [address] [facility] [address] [phone] [place] [address] Josy Hutton RN Social History Tobacco Use [...] often do you attend chur ch or methodist services? More than 4 times per year 08/24/2021 Do you belong to any clubs o r organizations such as latter day groups, unions, fraternal or athletic groups, or [...] place to sleep or slept in a group home (including now)? No 08/24/2021 Personal Safety Answer Date Recorded Have you ever been in or are you currently in a harmful physical or emotional relationship or is someone making you feel afraid or unsafe? Denies 06/25/2023 Sex and Gender Information Value Date Recorded Sex Assigned at Not on file Legal Sex Male 11:00 AM RATE ANALYST Gender Identity Not on file Sexual Orientation Not on file documented as of this encounter Ordered Prescriptions Prescription Sig Dispense Quantity Refills Last Filled Start Date End Date valsartan (Diovan) 40 mg tablet Take 1 tablet (40 mg total) by mouth daily 30 tablet 11 05/13/2024 05/13/2025 documented in this encounter Plan of Treatment Not on file documented as of this encounter Visit Diagnoses Not on filedocumented in this encounter Discontinued Medications Medication Sig Discontinue Reason Start Date End Da te sacubitriL-valsartan (ENTRESTO) 24-26 mg tabletIndications:chroni c heart failure Take 0.5 tablets by mouth 2 (two) times a day 09/15/2023 05/13/2024 documented as of this encounter Care Teams Auricular Acupuncturist Relationship Specialty Start Date End Date Kiya Tucker PA [address] [place] [address] PCP - General Family Practice 01/09/23 documented as of this encounter
--- OUTSIDE RECORDS SUMMARY | 2024-05-14 12:38 | XMS_ITS | Continuity of Care Document ---
Author Organization [facility] Yobany gonzalez Address [address] [place] [address] Phone Care Team Providers Care Central Supply Supervisor Name Role Phone Genesis Sesay MD Unavailable Unavailable Procedures Procedure Date CRITICAL CARE, FIRST HOUR CRITICAL CARE, FIRST HOUR CRITICAL CARE, ADDL 30 MIN CRITICAL CARE, FIRST HOUR CRITICAL CARE, ADDL 30 MIN CRITICAL CARE, FIRST HOUR CRITICAL CARE, ADDL 30 MIN CRITICAL CARE, FIRST HOUR CRITICAL CARE, FIRST HOUR CRITICAL CARE, FIRST HOUR CRITICAL CARE, FIRST HOUR CRITICAL CARE, FIRST HOUR INITIAL HOSPITAL CARE Advance Directives Directive Yes / No Effective Date File Name No Information Encounters Encounter Description Practice Location Reason(s) For Visit Diagnoses Date Provider CRITICAL CARE, FIRST HOUR [facility] [address] [place], [place], [id number], tel:[phone] [address] [place] [address] No Information 2019 Lázaro Hurtado. [address] [place], [place], [id number], [place]. tel:[phone] CRITICAL CARE, FIRST HOUR [facility], [address] [place], [place], [id number], tel:[phone] [address] [place] [address] No Information 2019 Lázaro Hurtado. [address] [place], [place], [id number], [place]. tel:[phone] CRITICAL CARE, FIRST HOUR [facility], [address] [facility], [place], [id number], [place] tel:[phone] [place] [address] No Information 2019 Ayesha Wilcox. [address] [facility], [place], [id number], [place]. tel:[phone] CRITICAL CARE, FIRST HOUR [facility], [address] [facility], [place], [id number], [place] tel:[phone] [place] [address] No Information 2019 Rabia Servin. [address] [facility], [place], [place], [id number], [place]. tel:[phone] CRITICAL CARE, FIRST HOUR [facility], [address] [facility], [place], [id number], [place] tel:[phone] [place] [address] No Information 2019 Gentry Brooke. [address] [facility], [place], [id number], [place]. tel:[phone] CRITICAL CARE, FIRST HOUR [facility], [address] [facility], [place], [id number], [place] tel:[phone] [place] [address] No Information 2019 Gentry Brooke. [address] [facility], [place], [id number], [place]. tel:[phone] CRITICAL CARE, FIRST HOUR [facility], [address] [facility], [place], [id number], [place] tel:[phone] [place] [address] No Information 2019 [facility]. [address] , [place], [address], [place]. tel:[phone] CRITICAL CARE, FIRST HOUR [facility], [address] [facility], [place], [id number], [place] tel:[phone] [address] [place] [address] No Information 2019 [facility]. [address], , [place], [address], [place]. tel:[phone] CRITICAL CARE, FIRST HOUR [facility], [address] [facility], [place], [place], [id number], tel:[phone] [address] [place] [address] No Information 2019 Ayesha Wilcox. [address] [place] [address], [id number], . tel:[phone] INITIAL HOSPITAL CARE [facility], [address] [place], [place], [id number], tel:[phone] [address] [place] [address] No Information 2015 Enrique Anand. [address] [place] [address], [id number], . tel:[phone] Family History Family Member Type Diagnosis Age At Onset No Information Payers Payer name Insurance type Covered democrat ID Authoriza tion(s) No Information Social History Type Description Quantity Date Captured Comments Sex Male Smoking Status No Information Chief Complaint And Reason For Visit No Information History Of Present Illness Encounter Date Complaint History Of Prese nt Illness No Information Instructions Date Instruction Additional Infor mation No Information Assessments Type Assessment Date No Information
--- OUTSIDE RECORDS SUMMARY | 2024-05-14 12:38 | XMS_ITS | Encounter Summary ---
Author Organization [facility] Care Team Providers Care Dredge Pipeman Name Role Phone No, Physician Primary Care Provider [phone] Papito Saavedra MD Primary Care Provider [phone] Kiya Tucker Primary Care Provider [phone] Encounter Details Date Type Department Care Team (Latest Contact Info) Description 06/20/2017 Orders Only [facility] Provider, MD Earl [address] [place] [address] Social History Tobacco Use Types Packs/Day Years Used Date Smoking Tobacco: Never Assessed Sex and Gender Information Value Date Recorded Sex Assigned at Not on file Legal Sex Male 11:00 AM TEST ENGINEER Gender Identity Not on file Sexual Orientation Not on file documented as of this encounter Plan of Treatment Not on file documented as of this encounter Procedures Procedure Name Priority Date/Time Associated Diagnosis Comments PROCEDURE - RESULT 06/20/2017 12 :00 AM CDT documented in this encounter Results * PROCEDURE - RESULT (06/20/2017 12:00 AM CDT) Narrative 06/20/2017 12:00 AM CDT Ordered by an unspecified provider. us Historical Provider Final Res ult documented in this encounter Visit Diagnoses Not on filedocumented in this encounter Additional Health Concerns Infection Onset Date Last Indicated Resolved Time COVID: Suspected 07/04/2020 07/04/2020 07/04/2020 7:13 PM CDT documented as of this encounter Care Teams Dredge Pipeman Relationship Specialty Start Date End Date No, Physician PCP - General 06/28/20 08/02/20 Papito Saavedra MD [address] [place] [address] PCP - General Internal Medicine 08/03/20 07/08/21 Kiya Tucker PA [address] [place] [address] PCP - General Family Practice 01/09/23 documented as of this encounter
--- OUTSIDE RECORDS SUMMARY | 2024-05-14 12:39 | XMS_ITS | Continuity of Care Document ---
Author Organization [facility] [employer] Address [address] [place] [address] Phone Care Team Providers Care Senior Patrol Agent Name Role Phone Kyle Mathias MD Unavailable Unavailable Procedures Procedure Date Hospital discharge day care Followup hospital care, brief 0 Followup hospital care, moderate 2009 Followup hospital care, moderate 2009 Followup hospital care, moderate 2009 Initial hospital care, moderate 010 Advance Directives Directive Yes / No Effective Date File Name No Information Encounters Encounter Description Practice Location Reason(s) For Visit Diagnoses Date Provider Hospital discharge day care [facility], [address], [place], [place], [id number], [place] tel:[phone] [address] [place] [address] Inpatient Rehab No Information 2009 Stew Wright. , [place], [place]. Followup hospital care, brief [facility], [address], [place], [place], [id number], [place] tel:[phone] [address] [place] [address] Inpatient Rehab No Information 2009 Stew Wright. , [place], [place]. Followup hospital care, [facility] [employer] [facility], [address], [place], [place], [id number], [place] tel:[phone] [address] [place] [address] Inpatient Rehab No Information 2009 Stew [address]. , [place], [place]. Followup hospital care, moderate [employer] [facility], [address], [place], [place], [id number], [place] tel:[phone] [address] [place] [address] Inpatient Rehab No Information 2009 Stew Thornton , [place], [place]. Followup hospital care, [facility], [address], [place], [place], [id number], [place] [phone] [address] [place] [address] Inpatient Rehab No Information 2009 Stew [place] , [place], [place]. Initial hospital care, [facility], [address], [place], [place], [id number], [place] [phone] [address] [place] [address] Inpatient Rehab No Information 2009 Stew [place] , [place], [place]. Family History Family Member Type Diagnosis Age At Onset No Information Payers Payer name Insurance type Covered libertarian ID Authoriza tion(s) No Information Social History Type Description Quantity Date Captured Comments Sex Male Smoking Status No Information Chief Complaint And Reason For Visit No Information History Of Present Illness Encounter Date Complaint History Of Prese nt Illness No Information Instructions Date Instruction Additional Infor mation No Information Assessments Type Assessment Date No Information
--- OUTSIDE RECORDS SUMMARY | 2024-05-14 12:39 | XMS_ITS | Continuity of Care Document ---
Author Organization [facility] Address [address] [place] [address] Phone Care Team Providers Care Lab Technologist Name Role Phone Jcarlos Osorio OD Unavailable Unavailable Allergies, Adverse Reactions, Alerts Substance Reaction Status Criticality No Known Allergies Active No Inform ation Medications Medication Instructions Dosage Effective Dates (start - stop) Status Comments ALLOPURINOL (unknown strength) Not Available - Active AMLODIPINE BESYLATE (unknown strength) Not Available - Active CLOTRIMAZOLE (unknown strength) Not Available - Active GABAPENTIN (unknown strength) Not Available - Active GLIPIZIDE (unknown strength) Not Available - Active HYDRALAZINE HCL (unknown strength) Not Available - Active LANTUS (unknown strength) Not Available - Active OMEPRAZOLE (unknown strength) Not Available - Active POTASSIUM CHLORIDE (unknown strength) Not Available - Active SIMVASTATIN (unknown strength) Not Available - Active Procedures Procedure Date ANESTH, LENS SURGERY FACILITY FEE 55238 OPHTHALMIC BIOMETRY OPHTHALMIC BIOMETRY CATARACT SURG W/IOL, 1 STAGE OFFICE/OUTPATIENT VISIT, NEW Advance Directives Directive Yes / No Effective Date File Name No Information Encounters Encounter Description Practice Location Reason(s) For Visit Diagnoses Date Provider Providers Copied on Encounter [facility], [address], [place], [place], [id number], [place] tel:[phone] [facility] No Information Devon Garber. [address], [place], [place], [id number], [place]. tel:[phone] [facility], [address] [place], [place], [id number], [place] tel:[phone] [facility] Combined forms of age-related cataract, right eye Isabella Burrows. [address] [place], [place], [id number], [place]. tel:[phone] Referring Provider: QUENTIN Marques, [address] [facility] [place], [address]. tel:[phone] [facility], [address] [place] [address] [address], [place], [place], [id number], [place] tel:[phone] [facility] Combined forms of age-related cataract, right eye [facility]. [address], [place], [place], [id number], [place]. tel:[phone] Referring Provider: QUENTIN Marques, [facility] [facility] [place], [address]. tel:[phone] [facility], [address] [place] [address] [address], [place], [place], [id number], [place] tel:[phone] [facility] Combined forms of age-related cataract, right eye [address] [address], [place], [place], [address], [place]. tel:[phone] Referring Provider: Seamus Salinas, [address] [address], [place], [address] . tel:[phone] [facility], [address] [place] [address] [address], [place], [place], [id number], [place] tel:[phone] [facility] Combined forms of age-related cataract, right eye [address] [address] [place], [place], [address], [place]. tel:[phone] Referring Provider: QUENTIN Marques, [facility] [place], [address]. tel:[phone] OFFICE/OUTPAT IENT VISIT, [facility], [address] [place] [address] [address] [place], [place], [id number], tel:[phone] [facility] decreased vision (chief complaint) Combined forms of age-related cataract, right eyePresence of intraocular lensVitreous degeneration, bilateralType 2 diabetes mellitus without complications Devon Garber. [address], [place], [place], [address], [place]. tel:[phone] Referring Provider: QUENTIN Marques, [facility] [place], [address]. tel:[phone] Family History Family Member Type Diagnosis Age At Onset Problem (finding) Family history of Heart disease Payers Payer name Insurance type Covered alliance party ID Authormacka margarettechetan(s) [employer] [place] - MEDICARE ADVANTAGE MB [id number] Social History Type Description Quantity Date Captured Comments Sex Male Smoking Status No Information Chief Complaint And Reason For Visit No Information Reason For Referral Reason For Referral No Information Plan Of Treatment Date Type Action Status Future Order: Radiology Order Donato magnus ([id number]), Ordered on: Ordered History Of Present Illness Encounter Date Complaint History Of Prese nt Illness decreased vision The patient not es decreased vision in the OD for the past 6 week(s). The onset was gradual and the symptom is constant. It affects near and distance vision and the condition is associated with reading. Fine print and computer not as clear. Street signs are not as clear. Bright sunlight glare is bothersome. Depth perception is off and eyes are not working together well. Functional Status Date Functional Assessmen t No Information Instructions Date Instruction Additional Infor shikha - Discussed cataract (s) with patient. Reviewed risks, benefits, alternatives of surgery. Discussed the possibility of glare, streaks, arcs and halos. Reviewed the need for Rx at distance and near postoperatively, as well as refractive endpoint. Disc. tinted vs clear lens. Option of CE IOL OD. Patient wishes to proceed with surgery. Single vision tinted IOL, plano target, Related to Combined forms of age-related cataract, right eye - Well centered tint ed IOL, no treatment indicated. Related to Presence of intraocular lens - Discussed PVD. Sig ns, symptoms and risks of retinal detachment or tears were discussed in detail. If patient notices any symptoms discussed, contact office BENJA. Monitor closely with routine/referring eye care provider. Related to Vitreous degeneration, bilateral - Diabetes with no d iabetic retinopathy. Discussed ocular and systemic benefits of blood sugar control. Maintain good blood sugar control with PCP. Recommend routine annual eye exams with eye care provider. Related to Type 2 diabetes mellitus without complications Combined forms of ag e-related cataract, right eye - Patient viewed Cataract Risk-Benefit video and/or written documentation Related to Combined forms of age-related cataract, right eye Assessments Type Assessment Date No Information Patient Care Teams Name Effective Dates (start - stop) Status Members No Information
== END 2024-05-14 12:36 | disposition home or self-care (01) ==
LOC: CHSIMG 12:36
PROVIDERS: PCP Family Medicine; Visit Provider Internal Medicine Nephrology
DX: N18.32 Chronic kidney disease, stage 3b (principal); N28.1 Cyst of kidney, acquired
CPT/HCPCS: 76775

== ENCOUNTER 2024-08-03 08:28 | Outpatient (CLI) | payer MEDICARE, SELFPAY ==
--- OUTSIDE RECORDS SUMMARY | 2024-08-03 08:42 | XMS_ITS | Clinical Summary ---
Author Organization [facility] Address [address] [place] [address] Care Team Providers Care Ekg Manager Name Role Phone Papito Saavedra MD Primary Care Provider [phone] Kyle Evans MD Unavailable [phone] Allergies Active Allergy Reactions Criticality Noted [...] daily. Active Cholecalciferol (VITAMIN D3) 250 MCG (77191 UT) Tab Take 2 tablets by mouth [...] hyperlipidemia 04/11/2019 Acute systolic congestive heart failure ([facility]) 04/10/2019 History of kidney cancer 03/31/2014 Overview (04/11/2019): surgery only. 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 Oxygen Saturation 96% 12/21/2019 10:53 AM CDT Inhaled Oxygen Concentration - - Weight 123.8 kg (273 lb) 12/21/2019 10:53 AM CDT Height 180.3 cm (5' 11 ) 12/21/2019 10:53 AM CDT Body Mass Index 38.08 12/21/2019 10:53 AM CDT Plan of Treatment Health Maintenance Due Date Last Done Comments Hepatitis C 1966 DTaP, Tdap and Td Vaccines ( 1 - Tdap) 1967 Pneumococcal Vaccine: 50+ Ye ars (1 of 2 - PCV) 1967 Zoster Vaccines (1 of 2) 1998 Annual Medicare Wellness Visit 2013 RSV Immunization or 60+ Years (1 - 1-dose 75+ series) 2023 COVID-19 Vaccine ( - 2023-2 5 season) 2023 Meningococcal B Vaccine Aged Out No l onger eligible based on patient's age to complete this topic Meningococcal Vaccine Aged Out No marzena jayesh eligible based on patient's age to complete this topic RSV Immunizations Under 20 Months Aged Out No longer eligible based on patient's age to complete this topic Medical Devices Implanted Type Area Line Installation Supervisor Device Identifier Shelf Expiration Date Model / Serial / Lot Icd-04/23/2019 Implanted:04/01 by Mason Moran MD (Quantity not on file) ICD Left: Chest Description:GENERATOR-SN [id number] [id number] Valve Aor 18.5mm 27mm Msc Ul; [facility]; - [id number] Implanted:Qty: 1 on 04/16/2019 by Paolo Nelson RNFA at [facility] Valve Implant N/A: Heart [employer] 04/29/2023 [id number] / [id number] / Suture Sternotomy Kit - [id number] Implanted:Qty: 1 on 04/16/2019 by Paolo Nelson RNFA at [facility] Wire N/A: Sternum [employer] 07/30/2023 [id number] / / [id number] Description:5 wires implante d Wire Sut 18in Myowr2 7;.5 [place]; Ccs-1 Mfil; Cnv - [id number] Implanted:Qty: 1 on 04/16/2019 by Paolo Nelson RNFA at [facility] Wire N/A: Sternum [employer] 06/30/2023 [id number] / / [id number] Description:2 wires implante d Insurance MEDICARE [facility] Member Subscriber Plan / Payer (Ef fective 2023-Present) Name:David Maher Relation to Subscriber:Self Name:David Maher Payer ID:[id number] Group ID:Not on file Type:Not on file Address: [address] [place] [phone] MEDICARE [facility] Member Subscriber Plan / Payer (Ef fective 2023-Present) Name:David Maher Relation to Subscriber:Self Name:David Maher Payer ID:[id number] Group ID:Not on file Type:Not on file Address: [address] [place] [phone] Advance Directives * Full Code (Latest Code [...] 4:44 PM 04/17/2019 11:23 AM Care Teams Ekg Manager Relationship Specialty Start Date End Date Papito Saavedra MD [address] [place] [address] PCP - General INTERNAL MEDICINE 04/10/19 Kyle Evans MD [facility]. [address] [address] [place] [facility] CARDIOVASCULAR DISEASE 05/24/19
--- OUTSIDE RECORDS SUMMARY | 2024-08-03 08:42 | XMS_ITS | Clinical Summary ---
Author Organization [facility] Address [address] [place] [address] Phone Care Team Providers Care Bench Worker Name Role Phone Mikael Bower DO Primary Care Provider Allergies Active Allergy Reactions Criticality Noted Date Comments Lisinopril Cough 04/12/2019 Statins Joint Pain 04/12/2019 Medications ALPRAZolam (XANAX) 0.5 MG tablet Take 0.5 [...] (FLOMAX) 0.4 MG 24 hr capsule 07/05/2021 Activ e Active Problems Problem Noted Date Diagnosed Date Diverticulitis 07/18/2021 Hypertension 07/18/2021 Overview (07/18/2021): no longer on meds Obstructive sleep apnea syndrome 07/18/2021 Tobacco user 07/18/2021 Cardiac defibrillator in situ 09/26/2020 Overview (07/18/2021): [employer] DDD Fortify Assura ICD implanted on 04/23/19 for ICM/Afib. 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 no chemo/rads Immunizations Immunization Administration Dates Next Due Influenza, Injectable, Quadrivalent, [...] at Not on file Legal Sex Male 2:44 PM MDT Gender Identity Not on file Sexual Orientation [...] Medium Risk (1 of 4 - PCV) 1998 Influenza Vaccine (Season Ended) 2024 04/10/19 20 Insurance [employer] MEDICARE Care Teams Bench Worker Relationship Specialty Start Date End Date Mikael Bower DO PCP - General Family Medicine 06/14/21
--- OUTSIDE RECORDS SUMMARY | 2024-08-03 08:42 | XMS_ITS | Encounter Summary ---
Author Organization [facility] Facility Care Team Providers Care Coding Tech Name Role Phone No, Physician Primary Care Provider [phone] Papito Saavedra MD Primary Care Provider [phone] Kiya Tucker Primary Care Provider [phone] Hiamnshu Pereyra MD Unavailable [phone] Vannessa Chan Unavailable Unavailable Estefani Willams RN Unavailable [phone] Inge Arrington RN Unavailable [phone] Encounter Details Date Type Department Care Team (Latest Contact Info) Description 06/20/2017 Orders Only [facility]INCON[facility] ProviderEarl MD [address] [place] [address] Social History Tobacco Use Types Packs/Day Years Used Date Smoking Tobacco: Never Assessed Sex and Gender Information Value Date Recorded Sex Assigned at Not on file 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 Gender Identity Not on file Sexual Orientation [...] documented as of this encounter Care Teams Coding Tech Relationship Specialty Start Date End Date No, Physician PCP - General 06/28/20 08/02/20 Papito Saavedra MD [address] [place] [address] PCP - General Internal Medicine 08/03/20 07/08/21 Kiya Tucker PA [address] [place] [address] PCP - General Family Practice 01/09/23 Himanshu Pereyra MD [address] [facility] [address] [place] [address] Consulting Physician Transplant 07/23/24 Vannessa Chan Primary Ad Operations Coordinator Transplant 07/23/24 Estefani Willams RN [address] [facility] [address] [place] [address] Operator Helper 07/23/24 Inge Arrington, LITA Operator Helper 07/23/24 documented as of this encounter
--- OUTSIDE RECORDS SUMMARY | 2024-08-03 08:42 | XMS_ITS | Clinical Summary ---
Author Organization [facility] Address [address] [place] [address] Care Team Providers Care Stone Mason Name Role Phone Kiya Tucker Primary Care Provider [phone] Himanshu Pereyra MD Unavailable [phone] Vannessa Chan Unavailable Unavailable Estefani Willams RN Unavailable Inge Arrington RN Unavailable Allergies Active Allergy Reactions Criticality Noted Date Comments Lisinopril Cough Low 05/20/2019 Medications aspirin 81 mg enteric coated tablet Take 1 tablet (81 mg total) by mouth nightly Active diphenhydrAMINE (BENADRYL) 25 mg capsule Take 1 tablet/capsul e (25 mg total) by mouth daily Active diphenhydrAMINE -acetaminophen (Tylenol PM Extra Strength) 25-500 mg tablet Take 1 tablet by mouth nightly Active FLUoxetine (PROzac) 20 mg capsule Take 1 capsule (20 mg total) by mouth daily 4 Active icosapent ethyL (VASCEPA) 1 gram capsule TAKE 2 CAPSULES BY MOUTH 2 TIMES A DAY. 120 capsule 11 4 Active allopurinoL (ZYLOPRIM) 100 mg tablet Take 0.5 tablets (50 mg total) by mouth daily 4 Active rosuvastatin (CRESTOR) 5 mg tablet Take 1 tablet (5 mg total) by mouth daily 90 tablet 3 5 Active metoprolol XL (TOPROL-XL) 25 mg extended release tablet Take 1 tablet (25 mg total) by mouth daily 90 tablet 3 5 06/26/19 26 Active valsartan (Diovan) 40 mg tablet Take 1 tablet (40 mg total) by mouth daily 90 tablet 3 5 Active furosemide (LASIX) 40 mg tablet Take 1 tablet (40 mg total) by mouth daily 90 tablet 3 5 Active ezetimibe (ZETIA) 10 mg tablet Take 1 tablet (10 mg total) by mouth nightly 90 tablet 3 5 Active ezetimibe (ZETIA) 10 mg tablet Take 1 tablet (10 mg total) by mouth nightly 90 tablet 3 5 07/16/19 25 Discontinu ed(Reorder ) furosemide (LASIX) 40 mg tablet Take 1 tablet (40 mg total) by mouth daily 90 tablet 3 5 07/16/19 25 Discontinu ed(Reorder ) valsartan (Diovan) 40 mg tablet Take 1 tablet (40 mg total) by mouth daily 30 tablet 11 5 07/16/19 25 Discontinu ed(Reorder ) Active Problems Problem Noted Date Diagnosed Date Chronic combined systolic and diastolic heart fa ilure 08/23/2023 Assessment & Plan (11/08/2023 6:32 PM [...] ejection fraction 30-35% 06/25/2023 Paroxysmal atrial fibrillation 06/25/2023 S/P aortic valve replacement with bioprosthetic valve 05/26/2023 Ischemic cardiomyopathy 05/21/2023 Overview (05/26/2023): TTE May 2023 LVEF 35%, severe septal LVH Chronic diastolic congestive heart failure 06/24 Assessment & Plan (10/18/2022 3:46 PM CDT): Does not appear significantly volume overloaded on physical exam. Is experiencing dyspnea, continue his current furosemide dosing. Morbid (severe) obesity due to excess calories 0 06/24/2022 Cerebral hemorrhage 08/22/2021 ICD (implantable cardioverter-defibrillator), stef alston, in situ 09/26/2020 Overview (09/26/2020): [employer] Marcus DDD Fortify Assura ICD implanted on 04/23/19 for ICM/Afib. [employer] (implanted elsewhere) Coronary artery disease invo lving [place] coronary artery of [place] heart without angina pectoris 09/04/2020 Overview (06/18/2023): [facility] Mar 2019: LCA, RCA and PDA 90% [...] with orthostatic symptoms. Dissection of thoracoabdominal aorta 09/04/2020 Overview (05/26/2023): Type B aortic dissection s/p TEVAR History of aortic aneurysm repair 08/03/2020 Longstanding persistent atrial fibrillation 08/2020 Overview (06/18/2023): S/p Watchman device placement (27 mm) S/p cardioversion done on 10/31/2022 Offered PVI vs AVJ by [facility] May 2023 Assessment & Plan (08/23/2023 3:13 PM CDT): Mr. Maher has history of AF. He is s/p Watchman Device. He recently underwent AVN ablation and upgrade to Bi-V ICD. Followed by Dr. Pyle and device clinic. Assessment & Plan (05/01/2023 12:47 PM INFORMATION SYSTEMS TECHNICIAN): Symptomatic persistent atrial fibrillation, status post failed [...] best to proceed to device revision (to SURGICAL CODER) with AV junction ablation. I will reconnect that the patient after we know his current ejection fraction. Assessment & Plan (10/18/2022 3:46 PM CDT): Has been in atrial fibrillation since 07/10. Experiencing dyspnea, does not appear significantly volume [...] Encounters Date Type Department Care Team Description 07/23/2024 Telephone [facility] Transplant Heart [address] [place] [address] [place] [address]-7 [place] [address] Jia Owens 06/23/2024 Telephone [facility] Cardiology [facility] [facility] [address] [place] [address] Himanshu Pereyra MD Med Refill 06/22/2024 Telephone [facility] Cardiology [address] [place] [address] [address] [place] [address] Himanshu Pereyra MD 05/28/2024 Telephone [facility] Transplant Heart [address] [place] [address] [address] [address]85-4 [place] [address] Jia Owens 05/24/2024 5:00 PM INFORMATION SYSTEMS TECHNICIAN Ancillary Procedure [facility] [address] [facility] [address], [place] [phone] ICD (implantable cardioverter-defibrill ator), dual, in situ (Primary Dx); Ischemic cardiomyopathy 05/14/2024 Telephone [facility] Cardiology [address] [facility] Medical Office Building [address] [place] [phone] Glory Dailey NP [employer] PAF Application 05/13/2024 Orders Only [facility] Transplant Heart [address] [facility] [address] Mailstop [phone] [place] [address] Josy Hutton, RN 05/13/2024 Telephone [facility] Transplant Heart [address] [facility] [address] Mailstop [phone] [place] [address] Josy Hutton, RN 05/13/2024 Orders Only [facility] Transplant Heart [address] [facility] [address] Mailstop [phone] [place] [address] Josy Hutton, LITA 05/12/2024 Telephone [facility] Cardiology [address] [place] [address] [place] [address] Glory Dailey NP from Last 3 Months Surgical History Surgery Date Site/Laterality Comments NEPHRECTOMY Left CARDIAC SURGERY ARTERIAL ANEURYSM REPAIR TEVAR AORTIC VALVE REPLACEMENT 04/16/2019 AVR CABG x 4 CORONARY ARTERY BYPASS GRAFT 04/16/2019 AVR CABG x 4 CARDIAC DEFIBRILLATOR PLACEMENT 03/31/2019 - 04/30/2019 Medical History Medical History Date Comments Hypertension Coronary artery disease ETOH abuse Dissection of aorta (HCC) type B A-fib (HCC) Acute on chronic diastolic congestive heart fail ure (HCC) 06/24/2022 Family History Medical History Relation [...] How often do you attend chur or anglican services? More than 4 times per year 08/24/2021 Do you belong to any clubs o r organizations such as muslim groups, unions, fraternal or athletic groups, or [...] place to sleep or slept in a retirement (including now)? No 08/24/2021 Personal Safety Answer Date Recorded Have you ever been in or are you currently in a harmful physical or emotional relationship or is someone making you feel afraid or unsafe? Denies 06/25/2023 Sex and Gender Information Value Date Recorded Sex Assigned at Not on file Legal Sex Male 11:00 AM INFORMATION SYSTEMS TECHNICIAN Gender Identity Not on file Sexual Orientation [...] Last Done Comments Hepatitis C Screening 1950 DTaP/Tdap/Td Vaccine (1 - Tdap) 1959 Hepatitis B Screening 1966 Pneumococcal vaccine 65+ (1 of 2 - PCV) 1967 Zoster Vaccine (1 of 2) 1998 Well Visit 65+ 2013 Depression Screening 08/22/2022 08/22/2021 Fall Risk Assessment 06/25/2024 06/26/2023 Influenza Vaccine (Season Ended) 2024 04/10/19 20 Abdominal Aortic Aneurysm (A AA) Screen Completed 08/22/2022, 08/09/2021, 07/04/2020, Additional history exists Medical Devices Implanted Type Area Supervisor Mixing Device Identifier Shelf Expiration Date Model / Serial / Lot Wl [employer] Inc [id number] 31mm 10cm Active Control Conformable Thoracic Graft Stent - [id number] - [id number] Implanted:Qty : 1 on 06/29/2020 by Sam Márquez MD at [facility] Graft N/A: Aorta [employer] [id number] 04/29/2022 [id number] / [id number] / W[employer] [id number] Graft Stent Thornton Tag L15cm Od37mm Thoracic Active Control Conformable - [id number] - [id number] Implanted:Qty : 1 on 06/29/2020 by Sam Márquez MD at [facility] Graft N/A: Aorta [employer] [id number] 11/23/2021 [id number] / [id number] / Jimenez Vascular Defib Cardiac Qit93pd 04i32et [place] Hf Df4 Is-4 Is-1 Cnctr [id number] - [id number] - [id number] Implanted:Qty : 1 on 06/25/2023 by Robles Pyle MD at [facility] ICD Jimenez Vascular 03/30/2025 [id number] / [id number] / [employer] Quartet 4.7fr 86cm Quadripolar Is-4 Llll Connector 8 Curve Low 1456q/86 - [id number] - [id number] Implanted:Qty : 1 on 06/25/2023 by Robles Pyle MD at [facility] Lead [employer] Inc [id number] 03/30/2026 1456Q/86 / [id number] / [employer] Ashley Watchman Flx Procedure Device Wmflxperproc - S0 - [id number] Implanted:Qty : 1 on 07/09/2022 by Augusto Gonzales MD at [facility] Left Atrial Appendage Occluder N/A: Atrial Appendage [employer] Ashley 04/25/2025 [id number] / [id number] / [id number] W[employer] Inc [id number] 8mm 80cm 70cm Removable Ring Line Standard Wall Graft Vascular - [id number] - [id number] Implanted:Qty : 1 on 06/29/2020 by Sam Márquez MD at [facility] N/A: Femoral [employer] 11/14/2024 [id number] / [id number] / W[employer] [id number] 31mm 10cm Active Control Conformable Thoracic Graft Stent - [id number] - [id number] Implanted:Qty : 1 on 06/29/2020 by Sam Márquez MD at [facility] N/A: Aorta [employer] 04/29/2022 [id number] / [id number] / Jimenez Vascular Device Clsr Perclose Prostyle Sut-Mediatd Closure-Repai r Sys 37585-06 - S0 - [id number] Implanted:Qty : 1 on 07/09/2022 by Augusto Gonzales MD at [facility] Jimenez Vascular 03/30/2024 [id number] / 0 / [id number] Jimenez Vascular Device Clsr Perclose Prostyle Sut-Mediatd Closure-Repai r Sys 53136-22 - S0 - [id number] Implanted:Qty : 1 on 07/09/2022 by Augusto Gonzales MD at [facility] Jimenez Vascular 04/30/2024 [id number] / 0 / [id number] Procedures Procedure Name Priority Date/Time Associated Diagnosis Comments DEVICE CHECK - REMOTE Routine 05/24/2024 12:13 PM INFORMATION SYSTEMS TECHNICIAN Ischemic cardiomyopathy CTA CHEST ABDOMEN PELVIS Schedule Routine, Read Routine (OP Routine) 08/22/2022 12:38 PM CDT H/O aortic aneurysm repair from Last 3 Months or Most Recently Relevant to Health Maintenance Results * DEVICE CHECK - REMOTE (05/24/2024 12:13 PM INFORMATION SYSTEMS TECHNICIAN) Anatomical Region Laterality Modality Other Narrative 05/29/2024 10:15 AM INFORMATION SYSTEMS TECHNICIAN Table formatting from the original result was not included. BiV ICD CHECK (REMOTE) Patient ID: David Maher is a 74 y.o. male. This patient received a Jimenez BiV ICD. They had a routine remote transmission on 05/24/2024 Device implant indications: Ischemic cardiomyopathy, AF, status post AVJ, LBBB Interrogation of the patient's device demonstrates the following: Presenting EGM: AFib Bi V paced @ 70 bpm Original Device Settings Right Ventricle Left Ventricle Sensitivity (mV) Auto mV N/a mV Pacing Outputs 1.125 V @ 0.5 ms 2.625 V @ 0.5 ms Testing Measurements Right Ventricle Left Ventricle Sensitivity (mV) Not done mV Not done mV Impedence (Ohms) 410 ohms 830 ohms Pace Threshold 0.625 V @ 0.5 ms 2.125 V @ 0.5 ms Pacing % 97 % 97 % HV Lead Impedance 75 ohms N/A Battery Status: 7.5-7.8 years to JOYCE, charge time 9.3 seconds. Episodes last 90 days/Comments: No new ventricular events. NORMAL DEVICE FUNCTION PROGRAMMED MEDICATIONS: Anti-coagulant(s): Aspirin 81 mg Anti-arrhythmic(s): Toprol-XL 25 mg PLAN: 1) Jimenez BiV ICD evaluation 2) Jimenez remote transmission scheduled in 3 months. 3) Programming appropriate for device settings Ashley Modi RN us Robles Pyle MD CV CARDIAC [...] Electronically signed by: Jj Ivy M.D. Amber Tara Brenda HOUSEHOLD REFRIGERATOR MECHANIC IMG CT PROCEDURES Final R esult from Last 3 Months or Most Recently Relevant to Health Maintenance Insurance [facility] MEDICARE ADVANTAGE MEDICARE [facility] MEDICARE ADVANTAGE [facility] MEDICARE ADVANTAGE Advance Directives For more information, please contact: [phone] * Full Code (Latest Code Status on [...] 9:50 PM 06/29/2020 5:31 AM Care Teams Stone Mason Relationship Specialty Start Date End Date Kiya Tucker PA [address] [place] [address] PCP - General Family Practice 01/09/23 Himanshu Pereyra MD [address] [facility] [address] [place] [address] Consulting Physician Transplant 07/23/24 Vannessa Chan Primary Word Processor Operator Transplant 07/23/24 Estefani Willams, RN [address] [facility] [address] [place], [place] [id number] Contract Associate Manager 07/23/24 Inge Arrington, LITA Contract Associate Manager 07/23/24
--- OUTSIDE RECORDS SUMMARY | 2024-08-03 08:42 | XMS_ITS | Encounter Summary ---
Author Organization [facility] Address [facility] [place] [address] Care Team Providers Care Seasoner Name Role Phone Papito Saavedra MD Primary Care Provider [phone] Kyle Evans MD Unavailable [phone] Encounter Details Date Type Department Care Team (Late st Contact Info) Description 02/14/2020 Abstract [facility] at [address] [address] Caity Rojas MA Social History Tobacco Use [...] COVID-19? Unable to assess 02/02/2020 10:34 AM MANUFACTURING INDUSTRIAL ENGINEER documented as of this encounter Functional Status * RETIRED Are you deaf or do you have serious difficulty hearing Answer Date of Assessment Author Status No 04/10/2019 5:57 PM MANUFACTURING INDUSTRIAL ENGINEER Activ e * RETIRED Are you blind or do you have serious difficulty seeing, even when wearing glasses? Answer Date of Assessment Author Status No 04/10/2019 5:57 PM MANUFACTURING INDUSTRIAL ENGINEER Activ e * Do you have serious [...] on filedocumented in this encounter Care Teams Seasoner Relationship Specialty Start Date End Date Papito Saavedra MD [address] [place] [address] PCP - General INTERNAL MEDICINE 04/10/19 Kyle Evans MD Three [facility]. [address] [address] [place] [employer] Plant Operator CARDIOVASCULAR DISEASE 05/24/19 documented as of this encounter
--- OUTSIDE RECORDS SUMMARY | 2024-08-03 08:42 | XMS_ITS | Encounter Summary ---
Author Organization [facility] Address [facility] [place] [address] Care Team Providers Care School Principal Name Role Phone Papito Saavedra MD Primary Care Provider [phone] Kyle Evans MD Unavailable [phone] Encounter Details Date Type Department Care Team (Late st Contact Info) Description 01/11/2020 [facility] at [address] [address] Caity Rojas MA Social History Tobacco Use [...] Assessment Author Status No 04/10/2019 5:57 PM CORPORATE RECYCLING MANAGER Activ e * RETIRED Are you blind or do you have serious difficulty seeing, even when wearing glasses? Answer Date of Assessment Author Status No 04/10/2019 5:57 PM CORPORATE RECYCLING MANAGER Activ e * Do you have serious [...] on filedocumented in this encounter Care Teams School Principal Relationship Specialty Start Date End Date Papito Saavedra MD [address] [place] [address] PCP - General INTERNAL MEDICINE 04/10/19 Kyle Evans MD Three [facility]. [address] [address] [place] Product Communications Manager CARDIOVASCULAR DISEASE 05/24/19 documented as of this encounter
--- OUTSIDE RECORDS SUMMARY | 2024-08-03 08:42 | XMS_ITS | Referral Summary ---
Author Organization [facility] Address [address] [place] [address] Care Team Providers Care Opal Polisher Name Role Phone Kiya Tucker Primary Care Provider [phone] Himanshu Pereyra MD Unavailable Vannessa Chan Unavailable Unavailable Estefani Willams RN Unavailable Inge Arrington RN Unavailable [phone] Encounters Date Type Department Care Team Description 07/23/2024 Telephone [facility] Transplant Heart [address] [address] Mailop [phone] [place] [address] Jia Owens 06/23/2024 Telephone [facility] Cardiology [address] [place] [address] [place] [phone] Himanshu Pereyra MD Med Refill 06/22/2024 Telephone [facility] Cardiology [address] [place] [address] [address] [place] [phone] Himanshu Pereyra MD 05/28/2024 Telephone [facility] Transplant Heart [address] [address] [address] 26-02-534 [place] [address] Jia Owens 05/24/2024 5:00 PM PATIENT SAFETY TECH Ancillary Procedure [facility] [address] [place] [address] [address] [address] ICD (implantable cardioverter-defibrill ator), dual, in situ (Primary Dx); Ischemic cardiomyopathy 05/14/2024 Telephone [facility] Cardiology [address] [facility] Medical Office Building [address] [place] [address] Glory Dailey NP [employer] PAF Application 05/13/2024 Orders Only [facility] Transplant Heart [address] [facility] [address] 44-57-833 [place] [address] Josy Hutton, RN 05/13/2024 Telephone [facility] Transplant Heart [address] [place] [address] [address] 59-18-001 [place] [address] Josy Hutton, RN 05/13/2024 Orders Only [facility] Transplant Heart [address] [place] [address] 340 Mailop 72-76-876 [place] [address] Josy Hutton, RN 05/12/2024 Telephone [facility] Cardiology [address] [facility] Advanced Medicine 8th [place] [address] [place] [address] Glory Dailey NP from Last 3 Months Allergies Active Allergy [...] mg total) by mouth nightly 90 tablet 5 Active ezetimibe (ZETIA) 10 mg tablet [...] mg total) by mouth daily 30 tablet 5 07/16/19 Discontinu ed(Reorder ) Active Problems Problem Noted [...] implanted on 04/23/19 for ICM/Afib. [employer] [place] (implanted elsewhere) Coronary artery disease invo lving [place] coronary artery of [place] heart without angina pectoris 09/04/2020 Overview (06/18/2023): [facility] Mar 2019: LCA, RCA and PDA [...] clinic. Assessment & Plan (05/01/2023 12:47 PM PATIENT SAFETY TECH): Symptomatic persistent atrial fibrillation, status post failed [...] best to proceed to device revision (to ADMINISTRATIVE MEDICAL DIRECTOR) with AV junction ablation. I will reconnect [...] week 08/24/2021 How often do you attend [facility] or gnosticist services? More than 4 times per year [...] you are drinking? Patient does not drink 03/27/202 4 Q3: How often do you have si [...] on file Legal Sex Male 11:00 AM PATIENT SAFETY TECH Gender Identity Not on file Sexual Orientation [...] on file Medical Devices Implanted Type Area Fiberglass Boat Parts Finisher Device Identifier Shelf Expiration Date Model / Serial / Lot Wl [employer] Inc [id number] 31mm 10cm Active Control Conformable Thoracic Graft Stent - [id number] - [id number] Implanted:Qty : 1 on 06/29/2020 by Sam Márquez MD at [facility] Graft N/A: Aorta Wl [employer] [id number] 04/29/2022 [id number] / [id number] / Wl [employer] [id number] Graft Stent Rutledge Tag L15cm Od37mm Thoracic Active Control Conformable - [id number] - [id number] Implanted:Qty : 1 on 06/29/2020 by Sam Márquez MD at [facility] Graft N/A: Aorta W[employer] [id number] 11/23/2021 [id number] / [id number] / Jimenez Vascular Defib Cardiac [id number] [place] Hf Df4 Is-4 Is-1 Cnctr [id number] - [id number] - [id number] Implanted:Qty : 1 on 06/25/2023 by Robles Pyle MD at [facility] ICD Jimenez Vascular 03/30/2025 [id number] / [id number] / [employer] Quartet 4.7fr 86cm Quadripolar Is-4 Llll Connector 8 Curve Low 1456q/86 - [id number] - [id number] Implanted:Qty : 1 on 06/25/2023 by Robles Pyle MD at [facility] Lead [employer] [id number] 03/30/2026 1456Q/86 / [id number] / [employer] Ashley Watchman Flx Procedure Device Wmflxperproc - S0 - [id number] Implanted:Qty : 1 on 07/09/2022 by Augusto Gonzales MD at [facility] Left Atrial Appendage Occluder N/A: Atrial Appendage [employer] Ashley 04/25/2025 [id number] / 0 / [id number] W[employer] [id number] 8mm 80cm 70cm Removable Ring Line Standard Wall Graft Vascular - [id number] - [id number] Implanted:Qty : 1 on 06/29/2020 by Sam Márquez MD at [facility] N/A: Femoral W[employer] 11/14/2024 [id number] / [id number] / Wl [employer] [id number] 31mm 10cm Active Control Conformable Thoracic Graft Stent - [id number] - [id number] Implanted:Qty : 1 on 06/29/2020 by Sam Márquez MD at [facility] N/A: Aorta W[employer] 04/29/2022 [id number] / [id number] / Jimenez Vascular Device Clsr Perclose Prostyle Sut-Mediatd Closure-Repai r Sys 77101-04 - S0 - [id number] Implanted:Qty : 1 on 07/09/2022 by Augusto Gonzales MD at [facility] Jimenez Vascular 03/30/2024 [id number] / 0 / [id number] Jimenez Vascular Device Clsr Perclose Prostyle Sut-Mediatd Closure-Repai r Sys 41246-79 - S0 - [id number] Implanted:Qty : 1 on 07/09/2022 by Augusto Gonzales MD at [facility] Jimenez Vascular 04/30/2024 [id number] / 0 / [id number] Procedures Procedure Name Priority Date/Time Associated Diagnosis Comments DEVICE CHECK - REMOTE Routine 05/24/2024 12:13 PM PATIENT SAFETY TECH Ischemic cardiomyopathy CTA CHEST ABDOMEN PELVIS Schedule Routine, Read Routine (OP Routine) 08/22/2022 12:38 PM CDT H/O aortic aneurysm repair from Last 3 Months or Most Recently Relevant to Health Maintenance Results * DEVICE CHECK - REMOTE (05/24/2024 12:13 PM PATIENT SAFETY TECH) Anatomical Region Laterality Modality Other Narrative 05/29/2024 10:15 AM PATIENT SAFETY TECH Table formatting from the original result was [...] by: Jj Ivy M.D. Amber Gutierrez NP IMG CT PROCEDURES Final R esult from Last 3 Months or Most Recently Relevant to Health Maintenance Insurance [facility] MEDICARE ADVANTAGE MEDICARE [facility] MEDICARE ADVANTAGE [facility] MEDICARE ADVANTAGE Advance Directives For more information, please contact: [phone] * Full Code (Latest Code Status on [...] 9:50 PM 06/29/2020 5:31 AM Care Teams Opal Polisher Relationship Specialty Start Date End Date Kiya Tucker PA [address] [place] [address] PCP - General Family Practice 01/09/23 Himanshu Pereyra MD [address] [facility] [address] [place] [address] Consulting Physician Transplant 07/23/24 Vannessa Chan Primary Replenishment Analyst Transplant 07/23/24 Estefani Willams, LITA [address] [facility] [address] [place] [address] Director Career Services 07/23/24 Inge Arrington, LITA Director Career Services 07/23/24
[2024-08-03 08:49] LABS: Hematocrit 50.2 % (37.0-46.0); Hemoglobin 16.9 g/dL (12.4-15.3); Mean Corpuscular HGB Conc 33.7 g/dL (32-36); Mean Corpuscular Hemoglobin 31.4 pg (27.0-31.0); Mean Corpuscular Volume 93.3 fL (78.0-102.0); Platelet Count Result 187 K/mm3 (150-420); Red Blood Count 5.38 M/mm3 (4.70-6.10); Red Cell Distribution Width 12.1 % (11.6-14.4); White Blood Count 6.6 K/mm3 (4.8-10.8)
[2024-08-03 09:33] LABS: Creatinine Urine 187.15 mg/dL (40-278); Total Protein Urine Random 30.9 mg/dL (0.0-11.9); Ur Ttl Prot Creatinine Ratio 0.17 mg/mg (0-0.20)
[2024-08-03 09:49] LABS: Albumin Level 4.2 g/dL (3.4-5.0); Anion Gap 12 mmol/L (4-12); Blood Urea Nitrogen 25 mg/dL (7-18); Calcium 9.8 mg/dL (8.5-10.1); Carbon Dioxide 25 mmol/L (21-32); Chloride 101 mmol/L (98-108); Estimated Glomerular Filt Rate 41; Glucose 124 mg/dL (70-99); Osmolality Calculated 291 mOsm/kg (285-295); Phosphorus 3.2 mg/dL (2.6-4.7); Potassium 4.2 mmol/L (3.5-5.1); Sodium 138 mmol/L (136-145)
[2024-08-04 14:09] LABS: Parathyroid Intact 57 pg/mL (16-77)
== END 2024-08-03 08:29 | disposition home or self-care (01) ==
LOC: CHSLAB 08:29
PROVIDERS: PCP Family Medicine; Visit Provider Internal Medicine Nephrology
DX: I10 Essential (primary) hypertension (principal); N18.32 Chronic kidney disease, stage 3b
CPT/HCPCS: 36415; 80069; 82570; 83970; 84156; 84550; 85027

== ENCOUNTER 2025-03-29 10:22 | Outpatient (CLI) | payer MEDICARE, SELFPAY ==
--- OUTSIDE RECORDS SUMMARY | 2025-03-29 10:56 | XMS_ITS | Encounter Summary ---
Author Organization [facility] Facility Care Team Providers Care Scuba Instructor Name Role Phone No, Physician Primary Care Provider [phone] Papito Saavedra MD Primary Care Provider [phone] Kiya Tucker Primary Care Provider [phone] Himanshu Pereyra MD Unavailable [phone] Vannessa Chan Unavailable Unavailable Estefani Willams RN Unavailable [phone] Inge Arrington RN Unavailable [phone] Mikael Bower DO Primary Care Provider Augusto Gonzales MD Unavailable Encounter Details Date Type Department Care Team (Latest Contact Info) Description 06/20/2017 Orders Only [facility]INCON[facility] ProviderEarl MD [address] [place] [id number] Social History Tobacco Use Types Packs/Day Years Used Date Smoking Tobacco: Never Assessed Sex and Gender Information Value Date Recorded Sex Assigned at Not on file Legal Sex Male 11:00 AM HR ASSOCIATE Gender Identity Not on file Sexual Orientation [...] documented as of this encounter Care Teams Scuba Instructor Relationship Specialty Start Date End Date No, Physician PCP - General 06/28/20 08/02/20 Papito Saavedra MD [address] [place] [id number] PCP - General Internal Medicine 08/03/20 07/08/21 Kiya Tucker PA [address] [place] [id number] PCP - General Family Practice 01/09/23 08/03/24 Mikael Bower DO [address] [place] [address] PCP - General Family Medicine 08/04/24 Himanshu Pereyra MD [address] [facility] [address] [place] [address] Consulting Physician Transplant 07/23/24 Vannessa Chan Primary Child Development Director Transplant 07/23/24 Estefani Willams, LITA [address] [facility] [address] [place] [address] Ophthalmic Lens Inspector 07/23/24 Inge Arrington, LITA Ophthalmic Lens Inspector 07/23/24 Augusto Gonzales MD [address] [place] [address] Consulting Physician Cardiology 09/29/24 documented as of this encounter
--- OUTSIDE RECORDS SUMMARY | 2025-03-29 10:56 | XMS_ITS | Clinical Summary ---
Author Organization [facility] Address [address] [place] [address] Care Team Providers Care Trust Mail Clerk Name Role Phone Himanshu Pereyra MD Unavailable [phone] Vannessa Chan Unavailable Unavailable Estefani Willams RN Unavailable Inge Arrington RN Unavailable Mikael Bower DO Primary Care Provider Augusto Gonzales MD Unavailable Allergies Active Allergy Reactions Criticality Noted Date Comments Lisinopril Cough Low 05/20/2019 Medications aspirin 81 mg enteric coated tablet Take 1 tablet (81 mg total) by mouth nightly Active diphenhydrAMINE (BENADRYL) 25 mg capsule Take 1 tablet/capsul e (25 mg total) by mouth as needed Active FLUoxetine (PROzac) 20 mg capsule Take 1 capsule (20 mg total) by mouth daily 08/05/2023 Active allopurinoL (ZYLOPRIM) 100 mg tablet Take 2 tablets (200 mg total) by mouth daily 03/03/2024 Active rosuvastatin (CRESTOR) 5 mg tablet Take 1 tablet (5 mg total) by mouth daily 90 tablet 3 06/25/2024 Active metoprolol XL (TOPROL-XL) 25 mg extended release tablet Take 1 tablet (25 mg total) by mouth daily 90 tablet 3 06/25/2024 06/26/19 26 Active furosemide (LASIX) 40 mg tablet Take 1 tablet (40 mg total) by mouth daily 90 tablet 3 07/15/2024 Active ezetimibe (ZETIA) 10 mg tablet Take 1 tablet (10 mg total) by mouth nightly 90 tablet 3 07/15/2024 Active ticagrelor (BRILINTA) 90 mg tablet Take 1 tablet (90 mg total) by mouth 2 (two) times a day 60 tablet 11 09/28/2024 09/24/19 Active icosapent ethyL (VASCEPA) 1 gram capsule Take 2 capsules (2 g total) by mouth 2 (two) times a day 120 capsule 11 10/11/2024 Active acetaminophen (TYLENOL) 325 mg tabletIndicatio ns:Fever,Pain Take 2 tablets (650 mg total) by mouth every 4 (four) hours as needed for pain 01/01/2025 Active Active Problems Problem Noted Date Diagnosed Date Aftercare following surgery of the circulatory s ystem 02/14/2025 Hx of CABG 12/30/2024 Cardiomyopathy, ischemic 12/30/2024 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 S/P aortic valve replacement with bioprosthetic valve 05/26/2023 Ischemic cardiomyopathy 05/21/2023 Overview (09/13/2024): [facility] Mar 2019: LCA, RCA and PDA 90% stenosis, patient underwent CABG/AVR bioprosthetic on 04/16/2019 TTE May 2023 LVEF 35%, severe septal LVH Morbid (severe) obesity due to excess calories 0 06/24/2022 Cerebral hemorrhage 08/22/2021 Cardiac resynchronization th erapy defibrillator (WATERMELON HARVESTING SUPERVISOR-D) in place 09/26/2020 Overview (09/13/2024): [facility] D[facility] Fortify Assura ICD implanted on 04/23/19 for ICM/Afib. Theodos - Jhonatan (implanted elsewhere) 06/25/23 he underwent upgrade to biventricular pacing ICD with AVJ ablation Coronary artery disease invo lving iqugmiut coronary artery of iqugmiut heart without angina pectoris 09/04/2020 Overview (06/18/2023): [facility] Mar 2019: LCA, RCA and PDA [...] 08/03/2020 Longstanding persistent atrial fibrillation 08/2020 Overview (09/13/2024): S/p Watchman device placement (27 mm) S/p cardioversion done on 10/31/2022 Offered PVI vs AVJ by Edenilson May 2023 06/25/23 he underwent upgrade to biventricular pacing ICD with AVJ ablation Assessment & Plan (08/23/2023 3:13 PM CDT): Mr. Maher has history of AF. He is s/p Watchman Device. He recently underwent AVN ablation and upgrade to Bi-V ICD. Followed by Dr. Pyle and device clinic. Assessment & Plan (05/01/2023 12:47 PM CAR ELECTRONICS INSTALLER): Symptomatic persistent atrial fibrillation, status post failed [...] best to proceed to device revision (to WATERMELON HARVESTING SUPERVISOR) with AV junction ablation. I will reconnect [...] PM CDT): Repeat fasting lipid panel on [facility] [place]. Resolved Problems Problem Noted Date Diagnosed Date Resolved Date Cardiac LV ejection fraction 30-35% 06/25/2023 09/13/2024 Paroxysmal atrial fibrillation 06/25/2023 09/13/2024 Chronic diastolic congestive heart failure 06/24/2022 09/13/2024 Assessment & Plan (10/18/2022 3:46 PM CDT): Does not appear significantly volume overloaded on physical exam. Is experiencing dyspnea, continue his current furosemide dosing. Encounter for other specified aftercare 08/03/2020 06/18/2023 Febrile illness, acute 07/05/202006/17 Fever in adult 07/04/2020 06/18/2023 Encounters Date Type Department Care Team Description 03/14/2025 6:15 PM CAR ELECTRONICS INSTALLER Ancillary Procedure [facility] [address] [facility] [address], [place] [address] Cardiac resynchronization therapy defibrillator (WATERMELON HARVESTING SUPERVISOR-D) in place (Primary Dx); Ischemic cardiomyopathy 02/14/2025 9:30 AM CAR ELECTRONICS INSTALLER Office Visit Cardiovascular and Thoracic Surgery [address] [facility] [address] [place] [address] Sam Márquez MD Aftercare following surgery of the circulatory system (Primary Dx); Ruptured aneurysm of descending thoracic aorta (HCC); Dissection of descending thoracic aorta (HCC) 02/14/2025 Telephone Cardiovascular and Thoracic Surgery [address] [facility] [address] [place] [address] Maggi Carola 02/10/2025 10:55 AM CAR ELECTRONICS INSTALLER Lab [address] [address] 02/10/2025 10:49 AM CAR ELECTRONICS INSTALLER - 02/10/2025 11:59 PM CAR ELECTRONICS INSTALLER Hospital Encounter [address] [address] Aneurysm of 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 Discharge Disposition: Discharge to home or self care 02/09/[address] [address] Robyn Amezcua 01/20/2025 Telephone [facility] Cardiology [address] [facility] [address] [place] [address] Augusto Gonzales MD 01/06/2025 Telephone [facility] [place] [address] [facility] [address] [place] [address] Noble Mcghee EP-C [employer] Call 01/03/2025 Orders Only Cardiovascular and Thoracic Surgery [address] [facility] [address] [place] [address] Charlene Will RN Aneurysm of 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1]; S/P AVR [Z95.2]; Acute on chronic combined systolic and diastolic heart failure (HCC) [I50.43]; Cardiomyopathy, ischemic [I25.5]; Mixed hyperlipidemia [E78.2]; Cardiac resynchronization therapy defibrillator (WATERMELON HARVESTING SUPERVISOR-D) in place [Z95.810] Discharge Disposition: Discharge to home or self care from Last 3 Months Surgical History Surgery Date Site/Laterality Comments NEPHRECTOMY Left CARDIAC SURGERY ARTERIAL ANEURYSM REPAIR TEVAR AORTIC VALVE REPLACEMENT 04/16/2019 AVR CABG x 4 CORONARY ARTERY BYPASS GRAFT 04/16/2019 AVR CABG x 4 CARDIAC DEFIBRILLATOR PLACEMENT 03/31/2019 - 04/30/2019 CARDIAC VALVE REPLACEMENT CARDIAC CATHETERIZATION 09/28/2024 N/A Procedure: LEFT HEART CATHETERIZATION WITH CORONARY ANGIOGRAPHY AND WITH OR WITHOUT LEFT VENTRICULOGRAM [id number]; Surgeon: Augusto Gonzales MD; Location: [facility]IAC [facility]UCKPOINTER; Service: Cardiovascular; Laterality: N/A; Medical devices from this surgery are in the Medical Devices section. ENDOLUMINAL REPAIR THORACOABDOMINAL ANEURYSM - HYBRID ROOM 12/29/2024 Abdomen/N/A Procedure: ENDOLUMINAL REPAIR THORACOABDOMINAL ANEURYSM - HYBRID ROOM; Surgeon: Sam Márquez MD; Location: [facility] OPERATING ROOM; Service: Cardiothoracic; Laterality: N/A; [employer] Medical devices from this surgery are in the Medical Devices section. Medical History Medical History Date Comments Hypertension Coronary artery disease ETOH abuse Dissection of aorta type B A-fib (HCC) Sleep apnea Stroke (HCC) 2022 Chronic kidney disease Chronic heart failure with r educed ejection fraction (HFrEF, <= 40%) and combined systolic and diastolic dysfunction (HCC) Family History Medical History Relation Name Comments Heart attack Mother Hypertension Mother Relation Name Status Comments Mother Social History Tobacco Use Types Packs/Day Years Used Date Smoking Tobacco: Former Cigarettes 0.3 1 0 06/28/2019 - 06/27/2020 Smokeless Tobacco: Never Tobacco Cessation:Counseling Given: No Social Connection and Isolation Panel Answer Date Recorded In a typical week, how many times do you talk on the phone with family, friends, or neighbors? More than three times a week 08/24/2021 How often do you get togethe r with friends or relatives? Once a week 08/24/2021 How often do you attend chur ch or taoism services? More than 4 times per year 08/24/2021 Do you belong to any clubs o r organizations such as restoration groups, unions, fraternal or athletic groups, or [...] staff should administer the PHQ-9) 2 08/23/2021 PRAPARE - Transportation Answer Date Re corded [...] in a prison (including now)? No 08/24/2021 Social Connection and Isolation Panel Answer Date Recorded In a typical week, how many times do you talk on the phone with family, friends, or neighbors? Patient unable to answer 12/27/2024 How often do you get togethe r with friends or relatives? Patient unable to answer 12/27/2024 How often do you attend chur ch or taoism services? More than 4 times per year 12/27/2024 Do you belong to any clubs o r organizations such as restoration groups, unions, fraternal or athletic groups, or school groups? No 12/27/2024 How often do you attend meet ings of the clubs or organizations you belong to? Never 12/27/2024 Are you , , di vorced, , never , or living with a partner? 12/27/2024 Overall Financial Resource Strain (CARDIA) Answe r Date Recorded How hard is it for you to pa y for the very basics like food, housing, medical care, and heating? Not hard at all 12/27/2024 Hunger Vital Sign Answer Date Recorded Within the past 12 months, y ou worried that your food would run out before you got the money to buy more. Never true 12/28/19 25 Within the past 12 months, t he food you bought just didn't last and you didn't have money to get more. Never true 12/27/2024 PRAPARE - Transportation Answer Date Re corded In the past 12 months, has l ack of transportation kept you from medical appointments or from getting medications? No 11/30 In the past 12 months, has l ack of transportation kept you from meetings, work, or from getting things needed for daily living? No 12/27/2024 Housing Stability Vital Sign Answer Robin e Recorded In the last 12 months, was t here a time when you were not able to pay the mortgage or rent on time? No 12/27/2024 In the past 12 months, how m any times have you moved where you were living? 0 12/27/2024 At any time in the past 12 m [facility], were you homeless or living in a prison (including now)? No 12/27/2024 [facility] Utilities Answer Date Recorded In the past 12 months has th e electric, gas, oil, or water company threatened to shut off services in your home? No 12/27/2024 Personal Safety Answer Date Recorded Have you ever been in or are you currently in a harmful physical or emotional relationship or is someone making you feel afraid or unsafe? Denies 12/27/2024 Sex and Gender Information Value Date Recorded Sex Assigned at Not on file Legal Sex Male 11:00 AM CAR ELECTRONICS INSTALLER Gender Identity Not on file Sexual Orientation Not on file Last Filed Vital Signs Vital Sign Reading Time Taken Comments Blood Pressure 129/82 02/14/2025 9:20 AM CAR ELECTRONICS INSTALLER Pulse 70 02/14/2025 9:20 AM CAR ELECTRONICS INSTALLER Temperature 37 C (98.6 F) 01/01/2025 7:50 AM CDT Respiratory Rate 20 02/14/2025 9:20 AM CAR ELECTRONICS INSTALLER Oxygen Saturation 98% 02/14/2025 9:20 AM CAR ELECTRONICS INSTALLER Inhaled Oxygen Concentration - - Weight 113.4 kg (250 lb) 02/14/2025 9:20 AM CAR ELECTRONICS INSTALLER Height 180.3 cm (5' 10.98) 02/14/2025 9:[address] Body Mass Index 34.88 02/14/2025 9:20 AM CAR ELECTRONICS INSTALLER Plan of Treatment Health Maintenance Due Date Last Done Comments Hepatitis C Screening 1950 DTaP/Tdap/Td Vaccine (1 - Tdap) 1959 Hepatitis B Screening 1966 Pneumococcal vaccine 65+ (1 of 2 - PCV) 1967 Zoster Vaccine (1 of 2) 1998 Well Visit 65+ 2013 Depression Screening 08/22/2022 08/22/2021 Influenza Vaccine (#1) 2024 04/10/2019 Fall Risk Assessment 01/01/2026 01/01/2025 Abdominal Aortic Aneurysm (A AA) Screen Completed 02/10/2025, 09/13/2024, 08/22/2022, Additional history exists Medical Devices Implanted Type Area Bicycle Courier Device Identifier Shelf Expiration Date Model / Serial / Lot [employer] [id number] 31mm 10cm Active Control Conformable Thoracic Graft Stent - [id number] - [id number] Implanted:Qty : 1 on 06/29/2020 by Sam Márquez MD at [facility] Graft N/A: Aorta [employer] [id number] 04/29/2022 [id number] / [id number] / [employer] [id number] Graft Stent Laurel Tag L15cm Od37mm Thoracic Active Control Conformable - [id number] - [id number] Implanted:Qty : 1 on 06/29/2020 by Sam Márquez MD at [facility] Graft N/A: Aorta [employer] [id number] 11/23/2021 [id number] / [id number] / [employer] V[employer] Defib Cardiac [id number] 30a55eb Beaver Hf Df4 Is-4 Is-1 Cnctr [id number] - [id number] - [id number] Implanted:Qty : 1 on 06/25/2023 by Robles Pyle MD at [facility] ICD [employer] 03/30/2025 [id number] / [id number] / [employer] Quartet 4.7fr 86cm Quadripolar Is-4 Llll Connector 8 Curve Low 1456q/86 - [id number] - [id number] Implanted:Qty : 1 on 06/25/2023 by Robles Pyle MD at [facility] Lead [employer] [id number] 03/30/2026 1456Q/86 / [id number] / [employer] Ashley Watchman Flx Procedure Device Wmflxperproc - S0 - [id number] Implanted:Qty : 1 on 07/09/2022 by Augusto Gonzales MD at [facility] Left Atrial Appendage Occluder N/A: Atrial Appendage [employer] Ashley 04/25/2025 [id number] / [id number] / [id number] [employer] Ashley Stent Coronary Drug Eluting Rapid Exchange Synergy Megatron 4.16x12gy [place] Chromium [id number] - S0 - [id number] Implanted:Qty : 1 on 09/28/2024 by Augusto Gonzales MD at [facility] Stent Left: Anterior Descending Cornary Artery [employer] Ashley 07/01/2025 [id number] / 0 / [id number] [employer] [id number] 8mm 80cm 70cm Removable Ring Line Standard Wall Graft Vascular - [id number] - [id number] Implanted:Qty : 1 on 06/29/2020 by Sam Márquez MD at [facility] N/A: Femoral [employer] 11/14/2024 [id number] / [id number] / [employer] [id number] 31mm 10cm Active Control Conformable Thoracic Graft Stent - [id number] - [id number] Implanted:Qty : 1 on 06/29/2020 by Sam Márquez MD at [facility] N/A: Aorta [employer] 04/29/2022 [id number] / [id number] / [employer] V[employer] Device Clsr Perclose Prostyle Sut-Mediatd Closure-Repai r Sys 15606-68 - S0 - [id number] Implanted:Qty : 1 on 07/09/2022 by Augusto Gonzales MD at [facility] [employer] 03/30/2024 [id number] / 0 / [id number] [employer] Device Clsr Perclose Prostyle Sut-Mediatd Closure-Repai r Sys 70422-13 - S0 - [id number] Implanted:Qty : 1 on 07/09/2022 by Augusto Gonzales MD at [facility] [employer] 04/30/2024 [id number] / 0 / [id number] [employer] Graft Patch Patch Vascular Repair 0.8x8cm 0.8x8cm Pfp0.8x8 - [id number] Implanted:Qty : 1 on 12/29/2024 by Sam Márquez MD at [facility] Left: Groin [employer] 07/17/2026 PFP0.8X8 / / [id number] [employer] Stent Graft Thoracic Conformable Tag [id number] 15cm [id number] - [id number] - [id number] Implanted:Qty : 1 on 12/29/2024 by Sam Márquez MD at [facility] Left: Aorta [employer] 09/01/2027 [id number] / [id number] / Procedures Procedure Name Priority Date/Time Associated Diagnosis Comments DEVICE CHECK - REMOTE Routine 03/14/2025 12:44 PM CAR ELECTRONICS INSTALLER Ischemic cardiomyopathy CTA CHEST ABDOMEN PELVIS Schedule Routine, Read Routine (OP Routine) 02/10/2025 12:11 PM CAR ELECTRONICS INSTALLER Aneurysm of 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 CREATININE, WHOLE BLOOD STAT 02/10/2025 10:58 AM CAR ELECTRONICS INSTALLER XR CHEST 1 VIEW IP Routine 01/01/2025 6:48 AM CDT EGFR Routine 01/01/2025 1:14 AM CDT MAGNESIUM Routine 01/01/2025 1:14 AM CDT BASIC METABOLIC PANEL Routine 01/01/2025 1:14 AM CDT CRITICAL CARE Routine 12/31/2024 7:05 AM CDT Dissection of thoracoabdominal aorta (HCC) XR CHEST 1 VIEW IP Routine 12/31/2024 5:46 AM CDT POCT GLUCOSE DEVICE Routine 12/30/2024 8:31 PM CDT POCT GLUCOSE DEVICE Routine 12/30/2024 4:04 PM CDT ADD ON LAB TEST Add-On 12/30/2024 3:45 PM CDT ADD ON LAB TEST Add-On 12/30/2024 3:45 PM CDT POCT GLUCOSE DEVICE Routine 12/30/2024 12:20 PM CDT CRITICAL CARE Routine 12/30/2024 11:47 AM CDT Dissection of thoracoabdominal aorta (HCC) LACTATE Routine 12/30/2024 8:48 AM CDT POCT GLUCOSE DEVICE Routine 12/30/2024 8:26 AM CDT XR CHEST 1 VIEW ED Urgent/IP Urgent 12/30/2024 5:56 AM CDT LIPID PANEL Routine 12/30/2024 12:22 AM CDT PRO B-TYPE NATRIURETIC PEPTIDE Routine 12/30/2024 12:22 AM CDT EGFR Routine 12/30/2024 12:22 AM CDT MAGNESIUM Routine 12/30/2024 12:22 AM CDT HEMOGLOBIN A1C Routine 12/30/2024 12:22 AM CDT RENAL FUNCTION PANEL Routine 12/30/2024 12:22 AM CDT CRITICAL CARE Routine 12/29/2024 8:19 PM CDT Dissection of thoracoabdominal aorta (HCC) POCT GLUCOSE DEVICE Routine 12/29/2024 8:07 PM CDT XR CHEST 1 VIEW ED Urgent/IP Urgent 12/29/2024 6:17 PM CDT CRITICAL CARE Routine 12/29/2024 2:38 PM CDT ECG 12-LEAD STAT 12/29/2024 2:13 PM CDT CV HYBRID ROOM (DEFAULT ORDERABLE) Routine 12/29/2024 1:38 PM CDT Dissection of thoracoabdominal aorta (HCC) History of aortic aneurysm repair POCT ACTIVATED CLOTTING TIME, HIGH RANGE Routine 12/29/2024 12:43 PM CDT FL AN PROCEDURE PLACEHOLDER Routine 12/29/2024 12:19 PM CDT FL AN ELECTIVE ENDOTRACHEAL AIRWAY Routine 12/29/2024 12:19 PM CDT FL AN PROCEDURE PLACEHOLDER Routine 12/29/2024 12:19 PM CDT FL AN CENTRAL LINE QUADRUPLE LUMEN Routine 12/29/2024 12:19 PM CDT FL AN PROCEDURE PLACEHOLDER Routine 12/29/2024 12:19 PM CDT TYPE AND SCREEN Routine 12/28/2024 12:00 PM CDT EGFR Timed 12/28/2024 11:31 AM CDT BASIC METABOLIC PANEL Timed 12/28/2024 11:31 AM CDT from Last 3 Months Results * DEVICE CHECK - REMOTE (03/14/2025 12:44 PM CAR ELECTRONICS INSTALLER) Anatomical Region Laterality Modality Other Narrative 03/19/2025 11:43 AM CAR ELECTRONICS INSTALLER Table formatting from the original result was not included. BiV ICD CHECK (REMOTE) Patient ID: David Maher is a 74 y.o. male. This patient received a Jimenez BiV ICD. They had a routine remote transmission on 03/14/2025 Device implant indications: Ischemic cardiomyopathy, status post AV node ablation Interrogation of the patient's device demonstrates the following: Presenting EGM: AFib V sensed and by V paced @ 70 bpm Original Device Settings Right Ventricle Left Ventricle Sensitivity (mV) Auto mV N/A mV Pacing Outputs 1.125 V @ 0.5 ms 2.5 V @ 0.5 ms Testing Measurements Right Ventricle Left Ventricle Sensitivity (mV) 9.1 mV Not done mV Impedence (Ohms) 450 ohms 850 ohms Pace Threshold 0.625 V @ 0.5 ms 2.0 V @ 0.5 ms Pacing % 92 % 92 % HV Lead Impedance 80 ohms N/A Battery Status: 6.7 years to JOYCE, charge time 9.1 seconds. Episodes last 90 days/Comments: There were no treated ventricular arrhythmias noted on today's remote interrogation. NORMAL DEVICE FUNCTION PROGRAMMED MEDICATIONS: Anti-coagulant(s): Brilinta 90 mg twice daily, aspirin 81 mg daily, the patient has a Watchman device in place Anti-arrhythmic(s): Toprol-XL 25 mg daily PLAN: 1) Jimenez BiV ICD evaluation 2) Jimenez remote transmission scheduled in 3 months. 3) Programming appropriate for device settings Ronald Truong, RN us Robles Pyle MD [facility] PRO CEDURES Final Result * CTA Chest Abdomen Pelvis (02/10/2025 12:11 PM CAR ELECTRONICS INSTALLER) Anatomical Region Laterality Modality Body N/A Computed Tomogra phy 02/11/2025 1:56 PM CAR ELECTRONICS INSTALLER Impressions 02/11/2025 1:56 PM CAR ELECTRONICS INSTALLER Type B aortic dissection status post endovascular stenting as detailed above. A new endovascular stent has been placed from the distal margin of the previous stent to just proximal to the celiac axis. The stent is widely patent without evidence of endoleak. Aneurysmal sac measuring a maximum of 5.5 cm. Persistent type B dissection extending from the inferior margin of the stent into the right common and proximal external iliac artery as detailed above. Flow is seen within the false lumen via lumbrical arteries. Celiac axis, SMA, TERRENCE and bilateral renal arteries arise off the true lumen and are widely patent. 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 Femoral-femoral bypass graft which appears occluded. Extensive uncomplicated diverticular disease Electronically signed by: Won Cardenas M.D. Narrative 02/11/2025 1:56 PM CAR ELECTRONICS INSTALLER 6EXAMINATION: CTA CHEST ABDOMEN PELVIS HISTORY: aortic aneurysm follow up. TECHNIQUE: CTA scan of the chest, abdomen, and pelvis performed Without and withintravenous and without oral contrast using helical scanning technique with dynamic intravenous contrast injection. Precontrast images of the chest were acquired. Arterial phase images of the chest, abdomen, and pelvis as well as portal venous phase images of the abdomen were also acquired. Reconstructed coronal and sagittal MPR images reviewed. All images stored on PACS. [3D MIP images rendered on scanning unit and reviewed at time of interpretation.] COMPARISON: CT chest, abdomen and pelvis dated 09/13/2024 FINDINGS: VASCULATURE: On the initial noncontrasted portion of examination there is no evidence of a intramural hematoma. On arterial phase imaging the ascending thoracic aorta is unremarkable. The aortic arch is within normal limits. There is normal takeoff of the great vessels which is widely patent. Immediately distal to the takeoff of the left subclavian artery is a widely patent endovascular stent. The stent is widely patent. Compared to prior examination there is an additional stent now seen extending to the level of the diaphragmatic hiatus. 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 Distal to new endovascular stent is a persistent type B dissection extending into the right common iliac artery and proximal external iliac artery. Flow is noted within the false lumen via lumbricals. CELIAC TRUNK: Arising off true lumen No flow limiting stenosis, dissection, or aneurysm. SUPERIOR MESENTERIC ARTERY: Arising off true lumen No flow limiting stenosis, dissection, or aneurysm. RIGHT RENAL ARTERY: There is no true lumen. No flow limiting stenosis, dissection, or aneurysm. LEFT RENAL ARTERY: Arises off true lumen. No flow limiting stenosis, dissection, or aneurysm. INFERIOR MESENTERIC ARTERY: Arises off true lumen. No flow limiting stenosis, dissection, or aneurysm. AORTA: As above ILIAC ARTERIES: The dissection flap extends into the right common and proximal external iliac artery. There is aneurysmal dilatation of the right common iliac artery measuring a maximum of 3 cm, unchanged. The bilateral common, internal and external iliac artery are widely patent. A femoral femoral bypass graft is seen. This appears occluded. CHEST HEART: Normal heart size without pericardial effusion. Postoperative changes from prior CABG. A left atrial appendage occlusion device is seen. MEDIASTINUM/NII: No mediastinal mass. No abnormal lymph nodes by size criteria. LUNGS/PLEURA:No airspace consolidation. No pulmonary nodules or masses. No pleural effusion. No pneumothorax. AXILLA: No adenopathy. CHEST WALL: No masses. HARDWARE/LINES/TUBES: Left-sided AICD is seen with leads in right atrium, right ventricle and coronary sinus. MUSCULOSKELETAL: No acute findings. OTHER: No other acute findings. ABDOMEN/PELVIS LIVER: Normal in size. No identified cystic or solid masses. GALLBLADDER:No radiopaque gallstones are seen. BILIARY: No intrahepatic or extrahepatic ductal dilatation. SPLEEN: Normal length. No focal lesions. PANCREAS: No identified cystic or solid masses. No significant calcifications. No adjacent inflammation or peripancreatic fluid collections. Pancreatic duct is not dilated. ADRENALS: No discrete nodules. KIDNEYS/URINARY TRACT: No identified significant cystic or solid masses. No stones. No hydronephrosis or hydroureter. The urinary bladder is unremarkable. GI: No dilated bowel loops. No obvious wall thickening. Extensive uncomplicated diverticular disease PERITONEUM: No free intraperitoneal air or ascites. RETROPERITONEUM:No mass or adenopathy REPRODUCTIVE:No significant abnormality VASCULATURE: No abdominal aortic aneurysm. MUSCULOSKELETAL: No acute findings. OTHER: No other acute findings. Procedure Note Won Cardenas MD - 02/11/2025 6EXAMINATION: CTA CHEST ABDOMEN PELVIS HISTORY: aortic aneurysm follow up. TECHNIQUE: CTA scan of the chest, abdomen, and pelvis performed Without and withintravenous and without oral contrast using helical scanning technique with dynamic intravenous contrast injection. Precontrast images of the chest were acquired. Arterial phase images of the chest, abdomen, and pelvis as well as portal venous phase images of the abdomen were also acquired. Reconstructed coronal and sagittal MPR images reviewed. All images stored on PACS. [3D MIP images rendered on scanning unit and reviewed at time of interpretation.] COMPARISON: CT chest, abdomen and pelvis dated 09/13/2024 FINDINGS: VASCULATURE: On the initial noncontrasted portion of examination there is no evidence of a intramural hematoma. On arterial phase imaging the ascending thoracic aorta is unremarkable. The aortic arch is within normal limits. There is normal takeoff of the great vessels which is widely patent. Immediately distal to the takeoff of the left subclavian artery is a widely patent endovascular stent. The stent is widely patent. Compared to prior examination there is an additional stent now seen extending to the level of the diaphragmatic hiatus. 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 Distal to new endovascular stent is a persistent type B dissection extending into the right common iliac artery and proximal external iliac artery. Flow is noted within the false lumen via lumbricals. CELIAC TRUNK: Arising off true lumen No flow limiting stenosis, dissection, or aneurysm. SUPERIOR MESENTERIC ARTERY: Arising off true lumen No flow limiting stenosis, dissection, or aneurysm. RIGHT RENAL ARTERY: There is no true lumen. No flow limiting stenosis, dissection, or aneurysm. LEFT RENAL ARTERY: Arises off true lumen. No flow limiting stenosis, dissection, or aneurysm. INFERIOR MESENTERIC ARTERY: Arises off true lumen. No flow limiting stenosis, dissection, or aneurysm. AORTA: As above ILIAC ARTERIES: The dissection flap extends into the right common and proximal external iliac artery. There is aneurysmal dilatation of the right common iliac artery measuring a maximum of 3 cm, unchanged. The bilateral common, internal and external iliac artery are widely patent. A femoral femoral bypass graft is seen. This appears occluded. CHEST HEART: Normal heart size without pericardial effusion. Postoperative changes from prior CABG. A left atrial appendage occlusion device is seen. MEDIASTINUM/NII: No mediastinal mass. No abnormal lymph nodes by size criteria. LUNGS/PLEURA:No airspace consolidation. No pulmonary nodules or masses. No pleural effusion. No pneumothorax. AXILLA: No adenopathy. CHEST WALL: No masses. HARDWARE/LINES/TUBES: Left-sided AICD is seen with leads in right atrium, right ventricle and coronary sinus. MUSCULOSKELETAL: No acute findings. OTHER: No other acute findings. ABDOMEN/PELVIS LIVER: Normal in size. No identified cystic or solid masses. GALLBLADDER:No radiopaque gallstones are seen. BILIARY: No intrahepatic or extrahepatic ductal dilatation. SPLEEN: Normal length. No focal lesions. PANCREAS: No identified cystic or solid masses. No significant calcifications. No adjacent inflammation or peripancreatic fluid collections. Pancreatic duct is not dilated. ADRENALS: No discrete nodules. KIDNEYS/URINARY TRACT: No identified significant cystic or solid masses. No stones. No hydronephrosis or hydroureter. The urinary bladder is unremarkable. GI: No dilated bowel loops. No obvious wall thickening. Extensive uncomplicated diverticular disease PERITONEUM: No free intraperitoneal air or ascites. RETROPERITONEUM:No mass or adenopathy REPRODUCTIVE:No significant abnormality VASCULATURE: No abdominal aortic aneurysm. MUSCULOSKELETAL: No acute findings. OTHER: No other acute findings. 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 A new endovascular stent has been placed from the distal margin of the previous stent to just proximal to the celiac axis. The stent is widely patent without evidence of endoleak. Aneurysmal sac measuring a maximum of 5.5 cm. Persistent type B dissection extending from the inferior margin of the stent into the right common and proximal external iliac artery as detailed above. Flow is seen within the false lumen via lumbrical arteries. Celiac axis, SMA, TERRENCE and bilateral renal arteries arise off the true lumen and are widely patent. 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 Femoral-femoral bypass graft which appears occluded. Extensive uncomplicated diverticular disease Electronically signed by: Won Cardenas M.D. Sam Márquez MD IMG CT PROCEDURES Final Result * (ABNORMAL) Creatinine, whole blood (02/10/2025 10:58 AM CAR ELECTRONICS INSTALLER) Creatinine, bld 1.61(H) 0.60 - 1.30 mg/dL Blood 02/10/2025 10:5 8 AM CAR ELECTRONICS INSTALLER 02/10/2025 11:01 AM CAR ELECTRONICS INSTALLER Sam Márquez MD LAB BLOOD ORDERABLES Fin al Result [facility] Department [place] [address] * XR Chest 1 View (01/01/2025 6:48 AM CDT) Anatomical Region Laterality Modality Body, Chest N/A Computed Radiogr aphy 01/01/2025 8:48 AM CDT Impressions 01/01/2025 8:48 AM CDT Right internal jugular central venous catheter tip overlies the superior vena cava. Postsurgical changes of median sternotomy with unchanged position of sternotomy wires. Aortic endovascular stent graft and left atrial appendage occluder. Left subclavian approach pacer defibrillator device is in place with leads overlying the right atrium and right ventricle. Streaky basilar atelectasis. No pneumothorax or right pleural effusion. Evaluation for underlying tiny left pleural effusion cannot be performed as the left costophrenic angle is excluded from the radiograph. The heart size and mediastinal contours are enlarged, but unchanged. Electronically signed by: Emi Espitia MD Narrative 01/01/2025 8:48 AM CDT EXAMINATION: XR CHEST 1 VIEW HISTORY: Post cardiac surgery COMPARISON: 12/31/2024 Procedure Note Emi Espitia MD - 01/01/2025 EXAMINATION: XR CHEST 1 VIEW HISTORY: Post cardiac surgery COMPARISON: 12/31/2024 IMPRESSION: Right internal jugular central venous catheter tip overlies the superior vena cava. Postsurgical changes of median sternotomy with unchanged position of sternotomy wires. Aortic endovascular stent graft and left atrial appendage occluder. Left subclavian approach pacer defibrillator device is in place with leads overlying the right atrium and right ventricle. Streaky basilar atelectasis. No pneumothorax or right pleural effusion. Evaluation for underlying tiny left pleural effusion cannot be performed as the left costophrenic angle is excluded from the radiograph. The heart size and mediastinal contours are enlarged, but unchanged. Electronically signed by: Emi Espitia MD Jennifer Palmer PHOTO CHECKER AND ASSEMBLER IMG XR PROCEDURES Rose Marie l Result * eGFR (01/01/2025 1:14 AM CDT) eGFR 79 >=60 mL/min/1. 73 m2 Comment: Interpretive Data Reference Interval Normal >/= 90 mL/min/1.73m2 Mildly decreased* 60 - 89 mL/min/1.73m2 Mildly to moderately decreased 45 - 59 mL/min/1.73m2 Moderately to severely decreased 30 - 44 mL/min/1.73m2 Severely decreased 15 - 29 mL/min/1.73m2 Kidney Failure < 15 mL/min/1.73m2 *Relative to young adult level Estimated glomerular filtration rate is determined by the 2020 CKD-EPI equation recommended by the National Kidney Foundation (A Unifying Approach to GFR Estimation: Recommendations of the NKF-ASK Task Force on Reassessing the Inclusion of Race in Diagnosing Kidney Disease, JASN 2020). The CKD-EPI equation should not be used for patients with unstable renal function and has not been validated in children and those over 70. Current interpretive data was last reviewed 2021. Blood 01/01/2025 1:14 AM CDT 01/01/2025 1:21 AM CDT Susie Mas PHOTO CHECKER AND ASSEMBLER LAB BLOOD ORDERABLES Fin al Result Performing Organization Address City/[facility]/ZIP Co de Phone Number [facility] [address] [place] [address] * Magnesium (01/01/2025 1:14 AM CDT) Pathologist [facility] Magnesium 2.0 1.4 - 2.5 mg/dL Blood 01/01/2025 1:14 AM CDT 01/01/2025 1:21 AM CDT Susie Canseco Tg PHOTO CHECKER AND ASSEMBLER LAB BLOOD ORDERABLES Fin al Result Performing Organization Address [facility] Co de Phone Number [facility] [address] [facility] [place] [address] * (ABNORMAL) Basic metabolic panel (01/01/2025 1:14 AM CDT) [facility] Sodium 139 135 - 145 mmol/L Potassium, pl 4.0 3.3 - 4.9 mmol/L [facility] Chloride 106 97 - 110 mmol/L [facility] CO2 19(L) 22 - 32 mmol/L [facility] Anion gap 14 2 - 15 mmol/L [facility] BUN 11 6 - 25 mg/dL [facility] Creatinine 0.99 0.80 - 1.30 mg/dL [facility] Glucose 107 70 - 199 mg/dL [facility] Comment: Interpretive Data Fasting glucose >/= 126 mg/dl is diagnostic for diabetes. Fasting is defined as no caloric intake for at least 8 hours. Fasting glucose between 100 mg/dl to 125 mg/dl is diagnostic of prediabetes. In a patient with classic symptoms of hyperglycemia or hyperglycemic crisis, a random glucose >/= 200 mg/dl is diagnostic for diabetes. In the absence of unequivocal hyperglycemia, results should be confirmed by repeat testing. The classification and Diagnosis of Diabetes Diabetes Care 2021; 46: S19-S40. Current interpretive data was last revised 2022. Calcium 8.8 8.5 - 10.3 mg/dL [facility] Blood 01/01/2025 1:14 AM CDT 01/01/2025 1:21 AM CDT Susie Mas PHOTO CHECKER AND ASSEMBLER LAB BLOOD ORDERABLES Fin al Result [facility] [address] Department [place] [address] * Critical Care (12/31/2024 7:05 AM CDT) Narrative Amie Camp MD - 12/31/2024 7:05 AM CDT Amie Camp MD 12/31/2024 9:22 AM Critical Care Performed by: Amie Camp MD Authorized by: Amie Camp MD CRITICAL CARE: Team: [facility] CT Shift: AM Level of Billing: Subsequent Hospital Visit Level 3 My time spent with this patient was 25 minutes: Critical Provider Statement: I have seen and examined the patient on this day of service. I have reviewed and confirmed the history, physical exam, laboratory, and radiographic data as documented in the ICU note. I have reviewed and discussed my treatment plan with the patient's team and other medical/direct response consultant staff. This time was in addition to and separate from care provided by other practitioners on this day of service. Amie Camp MD IN CLINIC/BEDSIDE ORDERAB LES Final Result * XR Chest 1 View (12/31/2024 5:46 AM CDT) Anatomical Region Laterality Modality Body, Chest N/A Computed Radiogr aphy 12/31/2024 3:58 PM CDT Impressions 12/31/2024 4:18 PM CDT The current study is compared with the prior radiograph dated 12/30/2024. Right internal jugular central venous catheter tip overlies the superior vena cava. Postsurgical changes of median sternotomy with unchanged position and orientation of sternotomy wires. Graft material overlies the thoracic aorta. Left subclavian approach pacer defibrillator device is in place with leads overlying the right atrium and right ventricle. No pleural effusion or pneumothorax. No pulmonary edema. Size and mediastinal contours are unchanged. Dictated by: Alysha Hines M.D. The radiology attending physician has personally reviewed this study, and had reviewed and/or edited this written report and agrees with it. Electronically signed by: Mason Roberts M.D. Narrative 12/31/2024 4:18 PM CDT EXAMINATION: 1 view chest radiograph Procedure Note Mason Roberts MD - 12/31/2024 EXAMINATION: 1 view chest radiograph IMPRESSION: The current study is compared with the prior radiograph dated 12/30/2024. Right internal jugular central venous catheter tip overlies the superior vena cava. Postsurgical changes of median sternotomy with unchanged position and orientation of sternotomy wires. Graft material overlies the thoracic aorta. Left subclavian approach pacer defibrillator device is in place with leads overlying the right atrium and right ventricle. No pleural effusion or pneumothorax. No pulmonary edema. Size and mediastinal contours are unchanged. Dictated by: Alysha Hines M.D. The radiology attending physician has personally reviewed this study, and had reviewed and/or edited this written report and agrees with it. Electronically signed by: Mason Roberts M.D. Jennifer Palmer PHOTO CHECKER AND ASSEMBLER IMG XR PROCEDURES Rose Marie l Result * POCT glucose (12/30/2024 8:31 PM CDT) [facility] Signature Glucose, POC 148 70 - 199 mg/dL Comment: For Glucose values <35 mg/dl when Hematocrit is >60 mg/dl,the test may not accurately detect significant hypoglycemia,and testing in the Laboratory should be considered if clinically indicated. Blood 12/30/2024 8:31 PM CDT 12/30/2024 8:31 PM CDT us Sam Márquez MD LAB POCT ORDERABLES - DE VICE Final Result [facility] [address] Department [place] [address] * POCT glucose (12/30/2024 4:04 PM CDT) Glucose, POC 119 70 - 199 mg/dL Comment: For Glucose values <35 mg/dl when Hematocrit is >60 mg/dl,the test may not accurately detect significant hypoglycemia,and testing in the Laboratory should be considered if clinically indicated. Blood 12/30/2024 4:04 PM CDT 12/30/2024 4:04 PM CDT Sam Márquez MD LAB POCT ORDERABLES - DE VICE Final Result Performing Organization Address [facility]/ZIP Co de Phone Number [facility] [address] [facility] [place], [place] [id number] * Lipid panel - Add on lab test (12/30/2024 3:45 PM CDT) Pathologist [facility] Acceptable Yes Blood 12/30/2024 3:45 PM CDT 12/30/2024 3:45 PM CDT Narrative [facility] - 12/30/2024 3:45 PM CDT Name of Test->Lipid panel Willis Llamas MD PhD LAB BLOOD ORDERABLES F inal Result Performing Organization Address [facility] Co de Phone Number [facility] [address] [facility] [place] [address] * NT-Pro BNP - Add on lab test (12/30/2024 3:45 PM CDT) Pathologist [facility] Acceptable Yes Blood 12/30/2024 3:45 PM CDT 12/30/2024 3:45 PM CDT Narrative [facility] - 12/30/2024 3:45 PM CDT Name of Test->NT-Pro BNP Willis Llamas MD PhD LAB BLOOD ORDERABLES F inal Result Performing Organization Address City/[facility]/ZIP Co de Phone Number [facility] [address] Department [place] [address] * POCT glucose (12/30/2024 12:20 PM CDT) Glucose, POC 133 70 - 199 mg/dL Comment: For Glucose values <35 mg/dl when Hematocrit is >60 mg/dl,the test may not accurately detect significant hypoglycemia,and testing in the Laboratory should be considered if clinically indicated. Blood 12/30/2024 12:2 0 PM CDT 12/30/2024 12:20 PM CDT us Sam Márquez MD LAB POCT ORDERABLES - DE VICE Final Result [facility] [address] Department [place] [address] * Critical Care (12/30/2024 11:47 AM CDT) Narrative Amie Camp MD - 12/30/2024 11:47 AM CDT Amie Camp MD 12/30/2024 12:08 PM Critical Care Performed by: Amie Camp MD Authorized by: Amie Camp MD CRITICAL CARE: Team: [facility] CT Shift: AM Level of Billing: Subsequent Hospital Visit Level 3 My time spent with this patient was 40 minutes: Critical Provider Statement: I have seen and examined the patient on this day of service. I have reviewed and confirmed the history, physical exam, laboratory, and radiographic data as documented in the ICU note. I have reviewed and discussed my treatment plan with the patient's team and other medical/direct response consultant staff. This time was in addition to and separate from care provided by other practitioners on this day of service. Amie Camp MD IN CLINIC/BEDSIDE ORDERAB LES Final Result * Lactate (12/30/2024 8:48 AM CDT) Lactate 0.7 0.7 - 2.0 mmol/L Blood 12/30/2024 8:48 AM CDT 12/30/2024 8:51 AM CDT Amie Camp MD LAB BLOOD ORDERABLES Rose Marie l Result Performing Organization Address City/[facility]/ZIP Co de Phone Number [facility] [address] Department [place] [address] * POCT glucose (12/30/2024 8:26 AM CDT) [facility] Signature Glucose, POC 139 70 - 199 mg/dL Comment: For Glucose values <35 mg/dl when Hematocrit is >60 mg/dl,the test may not accurately detect significant hypoglycemia,and testing in the Laboratory should be considered if clinically indicated. Blood 12/30/2024 8:26 AM CDT 12/30/2024 8:26 AM CDT Sam Márquez MD LAB POCT ORDERABLES - DE VICE Final Result Performing Organization Address [facility] Co de Phone Number [facility] [address] Department [place] [address] * XR Chest 1 View (12/30/2024 5:56 AM CDT) Anatomical Region Laterality Modality Body, Chest N/A Computed Radiogr aphy 12/30/2024 9:08 AM CDT Impressions 12/30/2024 9:08 AM CDT FINDINGS and IMPRESSION: Lungs are clear apart from healed granulomatous disease. Cardiomediastinal silhouette is unchanged with redemonstrated cardiomegaly and prominent left pericardiac fat pad. Aortic endovascular stent, left atrial appendage occluder, sternotomy wires with focal discontinuity in the 3rd most cranial wire. Pacer defibrillator leads. Right jugular line terminating in the SVC. Electronically signed by: Tiago Garsia M.D. Narrative 12/30/2024 9:08 AM CDT EXAMINATION: XR CHEST 1 VIEW COMPARISON: 12/29/2024 at 5:48 PM HISTORY: post cardiac surgery Procedure Note Tiago Garsia MD - 12/30/2024 EXAMINATION: XR CHEST 1 VIEW COMPARISON: 12/29/2024 at 5:48 PM HISTORY: post cardiac surgery IMPRESSION: FINDINGS and IMPRESSION: Lungs are clear apart from healed granulomatous disease. Cardiomediastinal silhouette is unchanged with redemonstrated cardiomegaly and prominent left pericardiac fat pad. Aortic endovascular stent, left atrial appendage occluder, sternotomy wires with focal discontinuity in the 3rd most cranial wire. Pacer defibrillator leads. Right jugular line terminating in the SVC. Electronically signed by: Tiago Garsia M.D. us Jennifer Palmer NP IMG XR PROCEDURES Rose Marie l Result * eGFR (12/30/2024 12:22 AM CDT) eGFR 63 >=60 mL/min/1. 73 m2 Comment: Interpretive Data Reference Interval Normal >/= 90 mL/min/1.73m2 Mildly decreased* 60 - 89 mL/min/1.73m2 Mildly to moderately decreased 45 - 59 mL/min/1.73m2 Moderately to severely decreased 30 - 44 mL/min/1.73m2 Severely decreased 15 - 29 mL/min/1.73m2 Kidney Failure < 15 mL/min/1.73m2 *Relative to young adult level Estimated glomerular filtration rate is determined by the 2020 CKD-EPI equation recommended by the National Kidney Foundation (A Unifying Approach to GFR Estimation: Recommendations of the NKF-ASK Task Force on Reassessing the Inclusion of Race in Diagnosing Kidney Disease, JASN 2020). The CKD-EPI equation should not be used for patients with unstable renal function and has not been validated in children and those over 70. Current interpretive data was last reviewed 2021. Blood 12/30/2024 12:2 2 AM CDT 12/30/2024 12:47 AM CDT us Mary Quiroz NP LAB BLOOD ORDERABLES Final Result [facility] [address] Department [place] [address] * (ABNORMAL) Pro B-type natriuretic peptide (12/30/2024 12:22 AM CDT) NT-proBNP 2,289(H) <=450 pg/mL Comment: Interpretive Comments: A. Dyspnea in Acute Care Setting All Ages: < 300 pg/ml, acute heart failure unlikely. < 50 yrs: 300 - 450 pg/ml, further investigation warranted. > 450 pg/ml, acute heart failure likely. 50 - 74 yrs: 300 - 900 pg/ml, further investigation warranted. > 900 pg/ml, acute heart failure likely . > or = 75 yrs: 450 - 1800 pg/ml, further investigation warranted. > 1800 pg/ml, acute heart failure likely. B. Non-acute Setting < 75 yrs < 125 pg/ml, rules out heart failure. > or = 125 pg/ml, further investigation warranted. > or = 75 yrs < 450 pg/ml, rules out heart failure. > or = 450 pg/ml, further investigation warranted. - Knowledge of each individual patient's NT-proBNP range may be more useful than using similar cut-points for every patient. Please note that marked elevations in NT-proBNP levels may be observed in state other than Left Ventricular Congestive Failure, including: acute coronary syndromes, right heart strain/failure (including pulmonary embolism and cor pulmonale), critical illness, renal failure, as well as advanced age. - References: 1. Zhao DE LA O et.al. Eur Heart J. 2006:27:330-337. 2. [facility] RW, Nadeen AM. J. AM Loco Cardiol: Cardiovasc Imag. 2009;2: 216- 225. Interpretive Data Last Revised Date: 2017. Blood 12/30/2024 12:2 2 AM CDT 12/30/2024 7:08 AM CDT us Sam Márquez MD LAB BLOOD ORDERABLES Fin al Result [facility] [address] Department [place] [address] * Magnesium (12/30/2024 12:22 AM CDT) Pathologist [facility] Magnesium 1.9 1.4 - 2.5 mg/dL Blood 12/30/2024 12:2 2 AM CDT 12/30/2024 12:23 AM CDT Sam Márquez MD LAB BLOOD ORDERABLES Fin al Result Performing Organization Address [facility] Co de Phone Number [facility] [address] [facility] [place] [address] * (ABNORMAL) Hemoglobin A1c (12/30/2024 12:22 AM CDT) [facility] Hgb A1C 6.0(H) 4.0 - 5.6 % Estimated Average Glucose 126 mg/dL [facility] Comment: The ADA recommends reporting an estimated Average Glucose (eAG) with all Hemoglobin A1c results using the equation derived from a study of 507 normal and diabetic adults. Minority populations were underrepresented and children were not included. (Diabetes Care 31:3928-8758, 2008). The eAG is not equivalent to a fasting glucose. Blood 12/30/2024 12:2 2 AM CDT 12/30/2024 12:42 AM CDT Amie Camp MD LAB BLOOD ORDERABLES Rose Marie l Result Performing Organization Address [facility] Co de Phone Number [facility] [address] [facility] [place] [address] * (ABNORMAL) Renal function panel (12/30/2024 12:22 AM CDT) [facility] Sodium 137 135 - 145 mmol/L Potassium, pl 4.0 3.3 - 4.9 mmol/L [facility] Chloride 107 97 - 110 mmol/L [facility] CO2 18(L) 22 - 32 mmol/L [facility] Anion gap 12 2 - 15 mmol/L [facility] BUN 16 6 - 25 mg/dL [facility] Creatinine 1.19 0.80 - 1.30 mg/dL [facility] Glucose 156 70 - 199 mg/dL [facility] Comment: Interpretive Data Fasting glucose >/= 126 mg/dl is diagnostic for diabetes. Fasting is defined as no caloric intake for at least 8 hours. Fasting glucose between 100 mg/dl to 125 mg/dl is diagnostic of prediabetes. In a patient with classic symptoms of hyperglycemia or hyperglycemic crisis, a random glucose >/= 200 mg/dl is diagnostic for diabetes. In the absence of unequivocal hyperglycemia, results should be confirmed by repeat testing. The classification and Diagnosis of Diabetes Diabetes Care 2021; 46: S19-S40. Current interpretive data was last revised 2022. Calcium 8.6 8.5 - 10.3 mg/dL [facility] Phosphorus, pl 2.7 2.3 - 4.5 mg/dL [facility] Albumin 3.9 3.5 - 5.0 g/dL [facility] Blood 12/30/2024 12:2 2 AM CDT 12/30/2024 12:47 AM CDT Narrative [facility] - 12/30/2024 1:18 AM CDT In pediatric tubes Mary Quiroz NP LAB BLOOD ORDERABLES Final Result [facility] [address] Department of Laboratories [place], [place] [id number] * (ABNORMAL) Lipid panel (12/30/2024 12:22 AM CDT) Cholesterol 103 30 - 199 mg/dL Comment: Interpretive Data Ages < or = 19 years Acceptable: <170 mg/dL Borderline high: 170-199 mg/dL High: >or= 200 mg/dL Ages > or = 20 years Desirable: <200 mg/dL Borderline high: 200-239 mg/dL High: >or= 240 mg/dL Literature References: 1. Expert Panel on Integrated Guidelines for Cardiovascular Health and Risk Reduction in Children and Adolescents. Pediatrics 2011;128:S213 2. NCEP Expert Panel. Circulation 2004;110:227 Current Interpretive Data was last revised on 2017. Triglycerides 375(H) <=149 mg/dL [facility] Comment: Interpretive Data Ages < or = 9 years Acceptable: <75 mg/dL Borderline high: 75-99 mg/dL High: >or= 100 mg/dL Ages 10 to 20 years Acceptable: <90 mg/dL Borderline high: 90-129 mg/dL High: >or= 130 mg/dL Ages > or = 20 years Desirable: <150 mg/dL Borderline high: 150-199 mg/dL High: 200-499 mg/dL Very high: >or= 499 mg/dL Literature References: 1. Expert Panel on Integrated Guidelines for Cardiovascular Health and Risk Reduction in Children and Adolescents. Pediatrics 2011;128:S213 2. NCEP Expert Panel. Circulation 2004;110:227 Current Interpretive Data was last revised on 2017. HDL 22(L) >=40 mg/dL [facility] Comment: Interpretive Data Ages < or = 19 years Acceptable: >45 mg/dL Borderline low: 40-45 mg/dL Low: <40 mg/dL Ages > or = 20 years Desirable: >or= 60 mg/dL Low: <40 mg/dL Literature References: 1. Expert Panel on Integrated Guidelines for Cardiovascular Health and Risk Reduction in Children and Adolescents. Pediatrics 2011;128:S213 2. NCEP Expert Panel. Circulation 2004;110:227 Current Interpretive Data was last revised on 2017. LDL, calculated 27 <=129 mg/dL [facility] Comment: Interpretive Data Ages < or = 19 years Acceptable: <110 mg/dL Borderline high: 110-129 mg/dL High: >or= 130 mg/dL Ages > or = 20 years Optimal: <100 mg/dL Near optimal: 100-129 mg/dL Borderline high: 130-159 mg/dL High: >160 mg/dL Calculated using the Tre LDL-C estimating equation. This equation was implemented on 2023. Prior to this date LDL-C was estimated using the Friedewald equation. Literature References: 1. Expert Panel on Integrated Guidelines for Cardiovascular Health and Risk Reduction in Children and Adolescents. Pediatrics 2011;128:S213 2. NCEP Expert Panel. Circulation 2004;110:227 3. Tre Mohan al. COURTNEY Cardiol. 2020 July 29;5(5):540-548. doi: 10.1001/[email or web address].2020.0013 Current Interpretive Data was last revised on 2023. Non-HDL Cholesterol 81 mg/dL [facility] Comment: Interpretive Data Ages < or = 19 years Acceptable: <120 mg/dL Borderline high: 120-144 mg/dL High: >145 mg/dL Ages > or = 20 years When triglycerides are >200 mg/dL, Non-HDL cholesterol is a secondary target of therapy with treatment goals that are 30 mg/dL greater than the LDL cholesterol target. Literature References: 1. Expert Panel on Integrated Guidelines for Cardiovascular Health and Risk Reduction in Children and Adolescents. Pediatrics 2011;128:S213 2. NCEP Expert Panel. Circulation 2004;110:227 Current Interpretive Data was last revised on 2017. Chol/HDL ratio 5 [facility] Blood 12/30/2024 12:2 2 AM CDT 12/30/2024 7:08 AM CDT us Sam Márquez MD LAB BLOOD ORDERABLES Fin al Result [facility] [address] Department [place] [address] * Critical Care (12/29/2024 8:19 PM CDT) Narrative Amie Camp MD - 12/29/2024 8:19 PM CDT Amie Camp MD 12/31/2024 6:47 AM Critical Care Performed by: Jennifer Palmer NP Authorized by: Jennifer Palmer NP CRITICAL CARE: Team: [facility] CT Shift: PM Level of Billing: Critical Care My time spent with this patient was 75 minutes: Critical Provider Statement: I have seen and examined the patient on this day of service. I have reviewed and confirmed the history, physical exam, laboratory and radiologic data as documented in the signed ICU note. I have reviewed and discussed my treatment plan with the ICU team and other medical/direct response consultant staff, making frequent assessments and decisions regarding this patient's complex medical care. Critical Care time was exclusive of time spent performing separately billed procedures, treating other patients, and teaching. This time was in addition to and separate from critical care provided by other practitioners in my group on this day of service. Critical Care was necessary to treat or prevent imminent or life-threatening deterioration of the following conditions: I spent time reviewing and interpreting data from bedside monitors, laboratory results, and imaging, I spent time discussing the management of this critically ill patient with consultants and the medical staff and I spent time documenting in the medical record us Jennifer Palmer NP IN CLINIC/BEDSIDE YOLANDA ZAYAS Final Result * POCT glucose (12/29/2024 8:07 PM CDT) [facility] Signature Glucose, POC 151 70 - 199 mg/dL Comment: For Glucose values <35 mg/dl when Hematocrit is >60 mg/dl,the test may not accurately detect significant hypoglycemia,and testing in the Laboratory should be considered if clinically indicated. Blood 12/29/2024 8:07 PM CDT 12/29/2024 8:07 PM CDT Sam Márquez MD LAB POCT ORDERABLES - DE VICE Final Result Performing Organization Address City/State/[facility] Co de Phone Number [facility] [address] Department [place] [address] * XR Chest 1 View (12/29/2024 6:17 PM CDT) Anatomical Region Laterality Modality Body, Chest N/A Computed Radiogr aphy 12/29/2024 7:42 PM CDT Impressions 12/29/2024 7:42 PM CDT Interval placement of a right IJ central venous catheter with tip in the cranial SVC. Left chest AICD with leads in the right atrium and right ventricle. Median sternotomy wires. Distal aortic arch and descending thoracic stent graft. No focal solid aspiration, pleural effusion, or pneumothorax. Unchanged mild cardiomegaly. Calcified granuloma in the left lower lung. Electronically signed by: Ashely Fuentes MD, MPHS Narrative 12/29/2024 7:42 PM CDT EXAMINATION: XR CHEST 1 VIEW HISTORY: line placement COMPARISON: 09/28/2024. CT chest 09/13/2024. Procedure Note Ashely Fuentes MD - 12/29/2024 EXAMINATION: XR CHEST 1 VIEW HISTORY: line placement COMPARISON: 09/28/2024. CT chest 09/13/2024. IMPRESSION: Interval placement of a right IJ central venous catheter with tip in the cranial SVC. Left chest AICD with leads in the right atrium and right ventricle. Median sternotomy wires. Distal aortic arch and descending thoracic stent graft. No focal solid aspiration, pleural effusion, or pneumothorax. Unchanged mild cardiomegaly. Calcified granuloma in the left lower lung. Electronically signed by: Ashely Fuentes MD, MPHS Amie Camp MD IMG XR PROCEDURES Final R esult * Critical Care (12/29/2024 2:38 PM CDT) Narrative Amie Camp MD - 12/29/2024 2:38 PM CDT Amie Camp MD 12/29/2024 5:33 PM Critical Care Performed by: Amie Camp MD Authorized by: Amie Camp MD CRITICAL CARE: Team: [facility] CT Shift: AM Level of Billing: Critical Care My time spent with this patient was 65 minutes: Critical Provider Statement: I have seen and examined the patient on this day of service. I have reviewed and confirmed the history, physical exam, laboratory and radiologic data as documented in the signed ICU note. I have reviewed and discussed my treatment plan with the ICU team and other medical/direct response consultant staff, making frequent assessments and decisions regarding this patient's complex medical care. Critical Care time was exclusive of time spent performing separately billed procedures, treating other patients, and teaching. This time was in addition to and separate from critical care provided by other practitioners in my group on this day of service. Critical Care was necessary to treat or prevent imminent or life-threatening deterioration of the following conditions: I spent time discussing the management of this critically ill patient with consultants and the medical staff, I spent time reviewing and interpreting data from bedside monitors, laboratory results, and imaging and I spent time documenting in the medical record Amie Camp MD IN CLINIC/BEDSIDE ORDERAB LES Final Result * ECG 12 lead (12/29/2024 2:13 PM CDT) 12/29/2024 2:13 PM CDT Narrative [facility] - 12/29/2024 2:30 PM CDT Vent Rate: 69 bpm RR Interval: 858 msec FL Interval: 0 msec QRS Duration: 144 msec QT Interval: 452 msec QTC Interval: 472 msec P-R-T [place]: 0 - 269 - 263 degrees IMPRESSION: ELECTRONIC VENTRICULAR PACEMAKER Electronically Signed By: Willis Llamas MD PhD Mary Quiroz PHOTO CHECKER AND ASSEMBLER ECG ORDERABLES Final Resu lt Performing Organization Address [facility] de Phone Number [facility] * ENDOLUMINAL REPAIR THORACOABDOMINAL ANEURYSM - HYBRID ROOM (12/29/2024 1:38 PM CDT) Anatomical Region Laterality Modality X-Ray Angiograph y Narrative 12/29/2024 1:39 PM CDT Please see OpNote for result. Sam Márquez MD SURGICAL CASE ORDERS Fin al Result * (ABNORMAL) POC Activated Clotting Time, High Range (12/29/2024 12:43 PM CDT) ACT 255(H) 87 - 138 sec Blood 12/29/2024 12:4 3 PM CDT 12/29/2024 12:43 PM CDT Sam Márquez MD LAB BLOOD ORDERABLES Fin al Result Performing Organization Address [facility] de Phone Number [facility] [address] Department [place] [address] * FL AN ELECTIVE ENDOTRACHEAL AIRWAY, FL AN PROCEDURE PLACEHOLDER (12/29/2024 12:19 PM CDT) Narrative Jayson Belle MD - 12/29/2024 12:19 PM CDT Jayson Belle MD 12/29/2024 12:19 PM Airway Patient location: OR Urgency: elective Indications for airway management: anesthesia Difficult airway: no Staff: Placed by: Anesthesiologist: Jayson Belle MD Emergent airway documentation: Risks and benefits discussed: yes Consent obtained: yes Airway prep: Preoxygenated: yes Patient position: sniffing Mask difficulty assessment: 0 - not attempted Sedation level during airway: GA Final airway details: Final airway type: endotracheal airway Tube type: ETT ETT size: 8.0 mm Cuffed: yes Technique used for successful ETT placement: video laryngoscopy Insertion site: oral Video blade type: Gonzalez Blade size: 3 Cormack-Lehane (video): grade I - full view of glottis Initial cuff pressure: 21 cm H2O Cuff inflated with: air ETT to lips: 23 cm Placement verified by: auscultation and CO2 detection Airway secured with: silk tape Number of attempts: 1no us Jayson Belle MD ANESTHESIA ORDERABLES Fin al Result * FL AN CENTRAL LINE QUADRUPLE LUMEN, FL AN PROCEDURE PLACEHOLDER (12/29/2024 12:19 PM CDT) Narrative Jayson Belle MD - 12/29/2024 12:19 PM CDT Jayson Belle MD 12/29/2024 12:19 PM Central Venous Line Patient location: OR Indication: central venous access and CVP monitoring Staff: Placed by: Anesthesiologist: Jayson Belle MD Procedure prep: Patient position: Trendelenburg. PPE: provider hand hygiene, provider hat/mask, sterile gloves, sterile gown, full body drape, sterile gel, sterile probe covers and large sterile drape. Prep solution: chlorhexadine/alcohol was applied to area. Ultrasound Evaluation: Ultrasound was prepped into field. Prior to the procedure, the cannulated vein was evaluated by ultrasound and deemed suitably patent for access.This vessel was accessed using real-time ultrasound guidance and an image was placed in the patient's medical record Central line: Laterality: right Site: internal jugular An individually distinct skin insertion site is being utilized for placement of the catheter. Catheter type: quad lumen Catheter size: 8.5 Fr. Catheter length: 16 cm Catheter length at skin: 16 cm Technique: anatomy identified with surface landmarks, anatomy identified with ultrasound, Seldinger technique, wire threaded easily and wire removed intact Venous verification: ultrasound confirmation Post insertion: all ports aspirated, all ports flushed easily, line sutured in place and occlusive dressing applied Number of attempts: 1 Assessment: Events: patient tolerated procedure well with no complications us Jayson Belle MD ANESTHESIA ORDERABLES Fin al Result * FL AN PROCEDURE PLACEHOLDER (12/29/2024 12:19 PM CDT) Narrative Jayson Belle MD - 12/29/2024 12:19 PM CDT Jayson Belle MD 12/29/2024 12:19 PM Arterial Line Patient location: OR Staff: Supervising provider: Jayson Belle MD Placed by: FACE MAN: Adonis Last CRNA Procedure prep: Prep solution: chlorhexadine/alcohol Prep: sterile gloves Arterial line: Catheter size: 20 gauge Catheter length: 1 and 3/4 inch Catheter type: wire-guided catheter Laterality: left Site: radial artery Line secured: tape and Tegaderm Results: good waveform and good blood return Number of attempts: 1 Assessment: Events: patient tolerated procedure well with no complications Jayson Belle MD ANESTHESIA ORDERABLES Fin al Result * Type and screen (12/28/2024 12:00 PM CDT) Pathologist [facility] Bess, indirect Negative ABO Rh O Positive [facility] Blood 12/28/2024 12:0 0 PM CDT 12/28/2024 1:15 PM CDT Narrative [facility] - 12/28/2024 2:08 PM CDT Has the patient had Daratumumab or Isatuximab in the past 6 months?->Unknown Jonny GARDINER LAB BLOOD BANK TEST ORDERABL ES Final Result [facility] [address] Department [place] [address] * (ABNORMAL) eGFR (12/28/2024 11:31 AM CDT) Pathologist [facility] eGFR 48(L) >=60 mL/min/1. 73 m2 Comment: Interpretive Data Reference Interval Normal >/= 90 mL/min/1.73m2 Mildly decreased* 60 - 89 mL/min/1.73m2 Mildly to moderately decreased 45 - 59 mL/min/1.73m2 Moderately to severely decreased 30 - 44 mL/min/1.73m2 Severely decreased 15 - 29 mL/min/1.73m2 Kidney Failure < 15 mL/min/1.73m2 *Relative to young adult level Estimated glomerular filtration rate is determined by the 2020 CKD-EPI equation recommended by the National Kidney Foundation (A Unifying Approach to GFR Estimation: Recommendations of the NKF-ASK Task Force on Reassessing the Inclusion of Race in Diagnosing Kidney Disease, JASN 2020). The CKD-EPI equation should not be used for patients with unstable renal function and has not been validated in children and those over 70. Current interpretive data was last reviewed 2021. Blood 12/28/2024 11:3 1 AM CDT 12/28/2024 11:37 AM CDT us Jonny GARDINER LAB BLOOD ORDERABLES Final R esult [facility] [address] Department [place] [address] * (ABNORMAL) Basic metabolic panel (12/28/2024 11:31 AM CDT) Sodium 139 135 - 145 mmol/L Potassium, pl 4.2 3.3 - 4.9 mmol/L [facility] Chloride 103 97 - 110 mmol/L [facility] CO2 20(L) 22 - 32 mmol/L [facility] Anion gap 16(H) 2 - 15 mmol/L [facility] BUN 29(H) 6 - 25 mg/dL [facility] Creatinine 1.49(H) 0.80 - 1.30 mg/dL [facility] Glucose 106 70 - 199 mg/dL [facility] Comment: Interpretive Data Fasting glucose >/= 126 mg/dl is diagnostic for diabetes. Fasting is defined as no caloric intake for at least 8 hours. Fasting glucose between 100 mg/dl to 125 mg/dl is diagnostic of prediabetes. In a patient with classic symptoms of hyperglycemia or hyperglycemic crisis, a random glucose >/= 200 mg/dl is diagnostic for diabetes. In the absence of unequivocal hyperglycemia, results should be confirmed by repeat testing. The classification and Diagnosis of Diabetes Diabetes Care 202; 46: S19-S40. Current interpretive data was last revised 2022. Calcium 9.0 8.5 - 10.3 mg/dL [facility] Blood 12/28/2024 11:3 1 AM CDT 12/28/2024 11:37 AM CDT us Jonny GARDINER LAB BLOOD ORDERABLES Final R esult [facility] [address] Department [place] [address] from Last 3 Months Insurance UHC MEDICARE ADVANTAGE MEDICARE [facility] MEDICARE ADVANTAGE Member Subscriber Plan / Payer (Ef fective 2022-Present) Name:David Maher Awais Relation to Subscriber:Self Name:Daivd Maher Payer ID:[id number] (NAIC) Type:[facility] MEDICARE Address: [place] [id number] MEDICARE ADVANTAGE Advance Directives For more information, please contact: [phone] * Full Code (Latest Code Status on File) Date Activated Date Inactivated Comments 12/27/2024 12:50 PM 01/01/2025 5:09 PM * Full Code Date Activated Date Inactivated Comments 09/29/2024 12:11 AM 09/29/2024 4:25 PM * Full Code Date Activated Date Inactivated Comments 09/28/2024 6:28 PM 09/28/2024 6:45 PM * Full Code Date Activated Date Inactivated Comments 07/09/2022 1:39 PM 07/10/2022 3:02 PM * Full Code Date Activated Date Inactivated Comments 08/22/2021 11:35 AM 08/30/2021 3:47 PM Care Teams Trust Mail Clerk Relationship Specialty Start Date End Date Mikael Bower [address] [place] [address] PCP - General Family Medicine 08/04/24 Himanshu Pereyra MD [address] [facility] [address] [place] [address] Consulting Physician Transplant 07/23/24 Vannessa Chan Primary Information Security Transplant 07/23/24 Estefani Willams, RN [address] [place] [address] Environmental Issues Instructor 07/23/24 Inge Arrington, LITA Environmental Issues Instructor 07/23/24 Augusto Gonzales MD [address] [place] [address] Consulting Physician Cardiology 09/29/24
--- OUTSIDE RECORDS SUMMARY | 2025-03-29 10:56 | XMS_ITS | Encounter Summary ---
Author Organization [facility] Address [facility] [place] [address] Care Team Providers Care Radiological Engineer Name Role Phone Papito Saavedra MD Primary Care Provider [phone] Kyle Evans MD Unavailable [phone] Encounter Details Date Type Department Care Team (Late st Contact Info) Description 02/14/2020 Abstract [facility] at [address] [address] Caity Rojas MA Social History Tobacco Use [...] COVID-19? Unable to assess 02/02/2020 10:34 AM DATA PROGRAMMER documented as of this encounter Functional Status * RETIRED Are you deaf or do you have serious difficulty hearing Answer Date of Assessment Author Status No 04/10/2019 5:57 PM DATA PROGRAMMER Activ e * RETIRED Are you blind or do you have serious difficulty seeing, even when wearing glasses? Answer Date of Assessment Author Status No 04/10/2019 5:57 PM DATA PROGRAMMER Activ e * Do you have serious difficulty walking or climbing stairs? Answer Date of Assessment Author Status No 04/10/2019 5:57 PM Mariah Pimentel RN Active * Do you have difficulty dressing or bathing? Answer Date of Assessment Author Status No 04/10/2019 5:57 PM Mariah Pimentel RN Active * Because of a physical, mental, or emotional condition, do you have difficulty doing errands alone such as visiting a doctor's office or shopping? Answer Date of Assessment Author Status No 04/10/2019 5:57 PM Mariah Pimentel RN Active documented as of this encounter Mental Status * Because of a physical, mental, or emotional condition, do you have serious difficulty concentrating, remembering, or making decisions? Answer Entry Date Author Status No 04/10/2019 5:57 PM Mariah Pimentel RN Active documented in this encounter Plan [...] on filedocumented in this encounter Care Teams Radiological Engineer Relationship Specialty Start Date End Date Papito Saavedra MD [address] [place] [address] PCP - General INTERNAL MEDICINE 04/10/19 Kyle Evans MD Three [facility]. [address] [address] [place] [employer] CARDIOVASCULAR DISEASE 05/24/19 documented as of this encounter
--- OUTSIDE RECORDS SUMMARY | 2025-03-29 10:56 | XMS_ITS | Clinical Summary ---
Author Organization [facility] Address [address] [place] [id number] Phone Care Team Providers Care Solid Waste Management Engineer Name Role Phone Mikael Bower DO Primary Care Provider [phone] Allergies Active Allergy Reactions Criticality Noted Date [...] for ICM/Afib. Theodos - Jhonatan (implanted elsewhere) Coronary atherosclerosis 09/04/2020 Dissection of [...] / Low and Medium Risk (1 of 2 - PCV) 1998 Influenza Vaccine (#1) 2024 04/10/2019 Insurance [employer] MEDICARE Care Teams Solid Waste Management Engineer Relationship Specialty Start Date End Date Mikael Bower DO PCP - General Family Medicine 06/14/21
--- OUTSIDE RECORDS SUMMARY | 2025-03-29 10:56 | XMS_ITS | Encounter Summary ---
Author Organization [facility] Address Formerly [facility], [facility] [place] [address] Care Team Providers Care Data Analyst Report Writer Name Role Phone Papito Saavedra MD Primary Care Provider [phone] Kyle Evans MD Unavailable [phone] Encounter Details Date Type Department Care Team (Late st Contact Info) Description 01/11/2020 [facility] at [address] [address] Caity Rojas MA Social History Tobacco Use [...] Assessment Author Status No 04/10/2019 5:57 PM COLD PATCHER Activ e * RETIRED Are you blind or do you have serious difficulty seeing, even when wearing glasses? Answer Date of Assessment Author Status No 04/10/2019 5:57 PM COLD PATCHER Activ e * Do you have serious [...] on filedocumented in this encounter Care Teams Data Analyst Report Writer Relationship Specialty Start Date End Date Papito Saavedra MD [address] [place] [id number] PCP - General INTERNAL MEDICINE 04/10/19 Kyle Evans MD [facility]. [address] [address] [place] Director CARDIOVASCULAR DISEASE 05/24/19 documented as of this encounter
--- OUTSIDE RECORDS SUMMARY | 2025-03-29 10:56 | XMS_ITS | Clinical Summary ---
Author Organization [facility] Address [address] [place] [address] Care Team Providers Care Sales Development Specialist Name Role Phone Papito Saavedra MD Primary Care Provider [phone] Kyle Evans MD Unavailable [phone] Allergies Active Allergy Reactions Criticality Noted Date Comments Lisinopril Cough 04/12/2019 Statins Joint Pain 04/12/2019 Medications * This document contains information received from the source organization and may not represent a complete record from that organization. lorazepam 0.5 MG tabletIndications:A nxiety Take 0.5 mg by mouth 2 (two) times daily as needed. Indications: Feeling Anxious 03/30/20 Active omeprazole 20 MG capsuleIndications: Nonerosive Gastroesophageal Reflux Disease Take 20 mg by mouth [...] daily. Active Cholecalciferol (VITAMIN D3) 250 MCG (87692 UT) Tab Take 2 tablets by mouth [...] warfarin 5 MG tablet 2.5 mg Tues, Th, 5 mg all other days 90 tablet [...] 04/11/2019 Acute systolic congestive heart failure 04/10/19 History of kidney cancer 03/31/2014 Overview (04/11/2019): [...] 35.7 C (96.3 F) 05/24/2019 9:11 AM FOUNDATION DRILL OPERATOR HELPER Respiratory Rate 18 05/24/2019 9:11 AM FOUNDATION DRILL OPERATOR HELPER Oxygen Saturation 96% 12/21/2019 10:53 AM CDT Inhaled Oxygen Concentration - - Weight 123.8 kg (273 lb) 12/21/2019 10:53 AM CDT Height 180.3 cm (5' 11) 12/21/2019 10:53 AM CDT Body Mass Index [...] - 1-dose 75+ series) 2023 COVID-19 Vaccine (1 - 2024-2 6 season) 2024 Influenza Adult (#1) 2024 04/10/2019 Hepatitis A Vaccines Aged Out No long er eligible based on patient's age to complete this topic Meningococcal B Vaccine Aged Out No l onger eligible based on patient's age to complete this topic Meningococcal Vaccine Aged Out No marzena jayesh eligible based on patient's age to complete this topic RSV Immunizations Under 20 Months Aged Out No longer eligible based on patient's age to complete this topic Medical Devices Implanted Type Area Development Engineer Device Identifier Shelf Expiration Date Model / Serial / Lot Icd-04/23/2019 Implanted:04/01 by Mason Moran MD (Quantity not on file) ICD Left: Chest Description:GENERATOR-SN [id number] STS RV [id number] Valve Aor 18.5mm 27mm Msc Ul; [facility]; - [id number] Implanted:Qty: 1 on 04/16/2019 by Paolo Nelson RNFA at [facility] Valve Implant N/A: Heart [employer] 04/29/2023 [id number] / [id number] / Suture Sternotomy Kit - [id number] Implanted:Qty: 1 on 04/16/2019 by Paolo Nelson RNFA at [facility] Wire N/A: Sternum [employer] 07/30/2023 [id number] / / [id number] Description:5 wires implante d Wire Sut 18in Myowr2 7;.5 [place]; Ccs-1 Mfil; Cnv - [id number] Implanted:Qty: 1 on 04/16/2019 by Paolo Nelson RNFA at [facility] Wire N/A: Sternum [facility] 06/30/2023 [id number] / / [id number] Description:2 wires implante d Insurance MEDICARE [facility] MEDICARE [facility] Advance Directives * Full Code (Latest Code [...] 4:44 PM 04/17/2019 11:23 AM Care Teams Sales Development Specialist Relationship Specialty Start Date End Date Papito Saavedra MD [facility] [place] [address] PCP - General INTERNAL MEDICINE 04/10/19 Kyle Evans MD Three [facility]. [address] [address] [place] Improvement Nurse CARDIOVASCULAR DISEASE 05/24/19
--- OUTSIDE RECORDS SUMMARY | 2025-03-29 10:56 | XMS_ITS | Patient Health Record ---
Author Organization [facility] Address [address] [place] [address] Support Name Relationship Address Phone MAX YEEDI Emergency Contact Unknown Unavailabl e JUDE GOTTLIEB Guarantor Unknown [phone] Reason For Referral No Information Medications Medication SIG (Take, Route, Frequency, Duration) Notes Start Date End Date Status Losartan Potassium 25 MG Tablet Oral 11/21/2021 Active Rosuvastatin Calcium 5 MG Tablet Oral 11/21/2021 Active Tamsulosin HCl 0.4 MG Capsule Oral 11/21/2021 Active Omeprazole 20 MG Capsule Delayed Release Oral 11/21/2021 Active ALPRAZolam 0.5 MG Tablet Oral 11/21/2021 Active Ezetimibe 10 MG Tablet Oral 11/21/2021 Active PARoxetine HCl 20 MG Tablet Oral 11/21/2021 Active Allergy Relief 25 mg Capsule Oral 11/21/2021 Active Carvedilol 25 MG Tablet Oral 11/21/2021 Active FLUoxetine HCl 40 MG Capsule Oral 11/21/2021 Active Aspirin 81 MG Capsule Oral *Pick strength-form from [employer] for eRX* 11/21/2021 Active Tylenol PM Extra Strength [facility]* 11/21/2021 Active QUEtiapine Fumarate 25 MG Tablet Oral 11/21/2021 Active Immunizations Vaccine Route Administration Date Status Comme nts Pfizer [employer] Covid-19 Vac cine 2nd dose Unknown 03/26/2021 Administered Pfizer [employer]ion[employer] Covid-19 Vac cine 2nd dose Unknown 08/16/2021 Administered Social History Social History Additional Details Category Social Info Options Details Migrated Social History Migrated Social History Alcohol Intake: None 10/18/2021,Tobacco Years: Former smoker 10/18/2021 Plan Of Treatment No Information Insurance Providers Payer Name Payer Address Payer Phone Subscriber Number Group Number Insured Name Patient Relationship to Insured Coverage Start Date Coverage End Date [employer] Medicare Replacement/ Advantage - [place] [address] [address] [place] [address] [id number] JUDE GOTTLIEB Self - patient is the insured Medical (General) History Surgical History Surgery Date(Month/Year) Heart surgery 04/16/2019
[2025-03-29 10:57] LABS: Hematocrit 47.7 % (37.0-46.0); Hemoglobin 16.1 g/dL (12.4-15.3); Mean Corpuscular HGB Conc 33.8 g/dL (32-36); Mean Corpuscular Hemoglobin 32.3 pg (27.0-31.0); Mean Corpuscular Volume 95.6 fL (78.0-102.0); Platelet Count Result 207 K/mm3 (150-420); Red Blood Count 4.99 M/mm3 (4.70-6.10); White Blood Count 8.3 K/mm3 (4.8-10.8)
[2025-03-29 11:33] LABS: Albumin Level 5.1 g/dL (3.5-5.1); Anion Gap 19 mmol/L (4-12); Blood Urea Nitrogen 22 mg/dL (9-20); Calcium 9.5 mg/dL (8.4-10.2); Carbon Dioxide 18 mmol/L (22-30); Chloride 108 mmol/L (98-107); Estimated Glomerular Filt Rate 44; Glucose 135 mg/dL (65-110); Osmolality Calculated 305 mOsm/kg (285-295); Potassium 4.2 mmol/L (3.4-5.0); Sodium 145 mmol/L (137-145); Uric Acid 7.5 mg/dL (3.5-8.5)
[2025-03-29 13:19] LABS: Total Protein Urine Random 12 mg/dL; Ur Ttl Prot Creatinine Ratio 0.16 mg/mg (0-0.20)
[2025-03-30 09:12] LABS: Parathyroid Intact 78.9 pg/mL (14.5-75.2)
== END 2025-03-29 10:23 | disposition home or self-care (01) ==
LOC: CHSLAB 10:24
PROVIDERS: PCP Family Medicine; Visit Provider Internal Medicine Nephrology
DX: I12.9 Hypertensive chronic kidney disease with stage 1 through stage 4 chronic kidney disease, or unspecified chronic kidney disease (principal); N18.32 Chronic kidney disease, stage 3b; M10.9 Gout, unspecified
CPT/HCPCS: 36415; 80069; 82570; 83970; 84156; 84550; 85027